=== PATIENT | female | born 1950 | race Caucasian/White ===

== ENCOUNTER → 2017-03-13 | Outpatient (REF) | payer MEDICARE, OTHER ==
[~2017-03-13] MED LIST: CELE10TA PO; DEPA500T2 PO; NORT10CA2 PO; PLEG15IN SC; TYSA1INJ IV; VALI5TAB PO; VITA200016 PO; VITA500046 PO
[2017-03-13 13:17] LABS: ALBUMIN 3.3 GM/DL (3.2-5.2); ALBUMIN/GLOBULIN RATIO 1.32 (1.00-1.93); ALKALINE PHOSPHATASE 55 U/L (45-117); ALT/SGPT 10 U/L (12-78); ANION GAP 12 MEQ/L (8-16); AST/SGOT 10 U/L (15-37); BILIRUBIN,TOTAL 0.3 MG/DL (0.2-1.0); BLOOD UREA NITROGEN 25 MG/DL (7-18); CARBON DIOXIDE LEVEL 26 MEQ/L (21-32); CHLORIDE LEVEL 106 MEQ/L (98-107); CREATININE FOR GFR 0.88 MG/DL (0.55-1.02); FREE T4 0.95 NG/DL (0.76-1.46); GLOMERULAR FILTRATION RATE > 60.0 (>45); GLUCOSE, FASTING 71 MG/DL (80-110); POTASSIUM SERUM 4.1 MEQ/L (3.5-5.1); SODIUM LEVEL 144 MEQ/L (136-145); TOTAL PROTEIN 5.8 GM/DL (6.4-8.2)
== END ==
LOC: M SFHCPLAZ 10:45
PROVIDERS: ATTEND Nurse Practitioner Family
DX: E55.9 Vitamin D deficiency, unspecified (principal); F32.9 Major depressive disorder, single episode, unspecified

== ENCOUNTER 2017-06-05 14:38 | Inpatient (IN) | payer MEDICARE, OTHER ==
[~2017-06-05] VITALS: Ht 162.6 cm; Wt 59.5 kg
[~2017-06-05 14:38] MED LIST changes: -PLEG15IN SC; -VALI5TAB PO; -VITA200016 PO; -VITA500046 PO
[2017-06-05] MEDS ORDERED: NS 1,000 ML IV ONE (15:00)
[2017-06-05] MEDS ORDERED: VITA200016 PO (15:03)
[2017-06-05] MEDS ORDERED: VALI5TAB PO (15:03)
[2017-06-05 17:04] LABS: ALBUMIN 3.7 GM/DL (3.2-5.2); ALBUMIN/GLOBULIN RATIO 1.37 (1.00-1.93); ALKALINE PHOSPHATASE 62 U/L (45-117); ALT/SGPT 27 U/L (12-78); ANION GAP 11 MEQ/L (8-16); AST/SGOT 30 U/L (7-37); BILIRUBIN,DIRECT 0.3 MG/DL (0.0-0.2); BILIRUBIN,TOTAL 0.6 MG/DL (0.2-1.0); BLOOD UREA NITROGEN 41 MG/DL (7-18); CALCIUM LEVEL 9.1 MG/DL (8.8-10.2); CARBON DIOXIDE LEVEL 27 MEQ/L (21-32); CHLORIDE LEVEL 103 MEQ/L (98-107); CREATININE FOR GFR 1.26 MG/DL (0.55-1.02); GLOMERULAR FILTRATION RATE 44.8 (>45); GLUCOSE, FASTING 73 MG/DL (80-110); POTASSIUM SERUM 3.4 MEQ/L (3.5-5.1); SODIUM LEVEL 141 MEQ/L (136-145); TOTAL PROTEIN 6.4 GM/DL (6.4-8.2)
[2017-06-05 17:37] LABS: MEAN CORPUSCULAR HEMOGLOBIN 32.8 pg (27.0-33.0); MEAN CORPUSCULAR HGB CONC 35.7 g/dl (32.0-36.5); MEAN CORPUSCULAR VOLUME 91.8 fl (80.0-96.0); RED CELL DISTRIBUTION WIDTH 13.2 % (11.5-14.5); WHITE BLOOD COUNT 5.4 10^3/uL (4.0-10.0)
[2017-06-05 17:38] LABS: PLATELET COUNT, AUTOMATED 78 10^3/uL (150-450)
[2017-06-05 17:39] LABS: IMMATURE PLATELET FRACTION % 8.4 % (0.0-9.6)
[2017-06-05 18:41] LABS: METHADONE URINE NEGATIVE (NEGATIVE)
--- NOTE | 2017-06-05 19:36 | ECGEPIP ---
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
[2017-06-05] MEDS: NS 1,000 ML IV SCH (21:58)
[2017-06-05] MEDS ORDERED: ONDANSETRON 4MG/2ML VIAL (J2405) IV PRN (22:00)
[2017-06-05] MEDS: GENTAMICIN 0.3% OPHTH SOL 5 ML BTL OU SCH (22:00)
[2017-06-05] MEDS ORDERED: VITA500046 PO (22:19)
[2017-06-05] MEDS ORDERED: PLEG15IN SC (22:21)
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
[2017-06-05] MEDS ORDERED: POTASSIUM CHLORIDE 10 MEQ SR TABLET PO ONE (23:30)
[2017-06-06 00:18] LABS: T UPTAKE 28 % (30-39); THYROXINE (T4) 10.1 UG/DL (4.5-12.0)
[2017-06-06 00:30] VITALS: BP 169/77
[2017-06-06] MEDS ORDERED: POTASSIUM CHLORIDE 10 MEQ SR TABLET As Ordered ONE (00:34)
[2017-06-06] MEDS: DIVALPROEX 500MG *ER* TAB PO SCH ×3 (01:22→22:16)
[2017-06-06] MEDS: GENTAMICIN 0.3% OPHTH SOL 5 ML BTL OU SCH ×6 (02:33→22:00)
[2017-06-06 06:00] VITALS: BP 132/63
[2017-06-06 06:58] LABS: MEAN CORPUSCULAR HEMOGLOBIN 32.6 pg (27.0-33.0); MEAN CORPUSCULAR HGB CONC 34.8 g/dl (32.0-36.5); MEAN CORPUSCULAR VOLUME 93.7 fl (80.0-96.0); RED CELL DISTRIBUTION WIDTH 13.5 % (11.5-14.5); WHITE BLOOD COUNT 3.8 10^3/uL (4.0-10.0)
[2017-06-06 07:02] LABS: PLATELET COUNT, AUTOMATED 66 10^3/uL (150-450)
[2017-06-06 07:04] LABS: CALCIUM LEVEL 8.3 MG/DL (8.8-10.2); GLOMERULAR FILTRATION RATE 58.5 (>45); POTASSIUM SERUM 3.9 MEQ/L (3.5-5.1)
--- NOTE | 2017-06-06 08:17 | REP ---
Portable chest: Single view. History: Weakness. Comparison study: January 04, 2015. Findings: EKG monitoring electrodes overlie the chest. Lungs are well inflated and clear. The pleural angles are sharp. Heart size is normal. Pulmonary vasculature is not increased. No significant bony abnormality. Impression: No active disease. Signed by Quinten Chakraborty MD 06/06/2017 08:08 A
[2017-06-06] MEDS: ENOXAPARIN 30 MG/0.3 ML SYR (J1650) SC SCH (09:00)
[2017-06-06] MEDS: NS 1,000 ML IV SCH ×2 (09:13→17:50)
[2017-06-06] MEDS: VITAMIN D 1,000 INTERNATIONAL UNITS TABLET PO SCH (09:14)
--- NOTE | 2017-06-06 21:13 | ECGEPIP ---
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 Electronically Signed On 06-06-2017 21:12:35 EDT by Larry Lazo
[2017-06-06 22:00] VITALS: BP 134/73
[2017-06-07] MEDS: GENTAMICIN 0.3% OPHTH SOL 5 ML BTL OU SCH ×6 (02:00→21:41)
--- NOTE | 2017-06-07 02:01 | IPNPDOC ---
Subjective Date Seen The patient was seen on 06/06/17. Subjective Chief Complaint/HPI The patient is a 67-year-old female admitted with a reason for visit of Misael ( Acute Kidney Injury),Hypokalemia. Events since last encounter Patient disoriented on exam, believes she is in her home. She thinks it is June 2018. She does state that she fell at home. She wishes to leave. General: Denies: Chills, Night Sweats Pulmonary: Denies: Dyspnea, Cough Cardiovascular: Denies: Chest Pain Gastrointestinal: Denies: Nausea, Vomiting, Diarrhea, Constipation Genitourinary: Denies: Dysuria Objective Physical Examination General Exam: Positive: Alert, Cooperative Chest Exam: Positive: Clear to auscultation Heart Exam: Positive: Rate Normal Psych Exam: Negative: Mental status NL, Oriented x 3 (x1) Assessment /Plan Problems (1) Weakness Status: Acute Problem Text: UA ordered. PT ordered. (2) Confusion Problem Text: metabolic encephalopathy vs dementia. UA ordered and pending. Renal function improved. If this does not clear, she may require placement. (3) Dehydration Status: Resolved Problem Text: Better with IVFs. (4) MISAEL (acute kidney injury) Status: Resolved (5) Hypokalemia Status: Resolved Plan/VTE VTE Prophylaxis Ordered?: Yes VS, I&O, 24H, Fishbone Vital Signs/I&O Vital Signs Date Time Temp Pulse Resp B/P (MAP) Pulse Ox O2 Delivery O2 Flow Rate FiO2 06/06/17 22:00 98.2 90 18 134/73 (93) 96 Room Air Laboratory Data 24H LABS Laboratory Tests 2 06/06/17 06:34: Nucleated Red Blood Cells % (auto) 0.0, Anion Gap 7L, Glomerular Filtration Rate 58.5, Blood Urea Nitrogen 32H, Creatinine 1.00, Sodium Level 142, Potassium Level 3.9, Chloride Level 108H, Carbon Dioxide Level 27, Calcium Level 8.3L CBC/BMP Laboratory Tests 06/06/17 06:34 Red Blood Count 3.19 L, Mean Corpuscular Volume 93.7, Mean Corpuscular Hemoglobin 32.6, Mean Corpuscular Hemoglobin Concent 34.8, Red Cell Distribution Width 13.5, Calcium Level 8.3 L OLIVIER BAKER DO Jun 07, 2017 02:01
[2017-06-07] MEDS: NS 1,000 ML IV SCH (03:10)
[2017-06-07 06:00] VITALS: BP 167/76
[2017-06-07 06:47] LABS: MEAN CORPUSCULAR HEMOGLOBIN 32.7 pg (27.0-33.0); MEAN CORPUSCULAR HGB CONC 34.3 g/dl (32.0-36.5); MEAN CORPUSCULAR VOLUME 95.3 fl (80.0-96.0); RED CELL DISTRIBUTION WIDTH 13.9 % (11.5-14.5); WHITE BLOOD COUNT 3.8 10^3/uL (4.0-10.0)
[2017-06-07 06:52] LABS: PLATELET COUNT, AUTOMATED 59 10^3/uL (150-450)
[2017-06-07 06:53] LABS: IMMATURE PLATELET FRACTION % 6.2 % (0.0-9.6)
[2017-06-07 07:09] LABS: ANION GAP 8 MEQ/L (8-16); BLOOD UREA NITROGEN 17 MG/DL (7-18); CALCIUM LEVEL 8.2 MG/DL (8.8-10.2); CARBON DIOXIDE LEVEL 27 MEQ/L (21-32); CHLORIDE LEVEL 110 MEQ/L (98-107); CREATININE FOR GFR 0.64 MG/DL (0.55-1.02); GLOMERULAR FILTRATION RATE > 60.0 (>45); GLUCOSE, FASTING 87 MG/DL (80-110); POTASSIUM SERUM 3.9 MEQ/L (3.5-5.1); SODIUM LEVEL 145 MEQ/L (136-145)
[2017-06-07] MEDS: VITAMIN D 1,000 INTERNATIONAL UNITS TABLET PO SCH (08:54)
[2017-06-07] MEDS: DIVALPROEX 500MG *ER* TAB PO SCH ×2 (08:54→21:41)
[2017-06-07] MEDS: ENOXAPARIN 30 MG/0.3 ML SYR (J1650) SC SCH (09:00)
[2017-06-07] MEDS ORDERED: PNEUMOCOCCAL VACCINE 0.5ML SYRINGE(90732) PNEUMOVAX 23 IM ONE (09:00)
[2017-06-07] MEDS ORDERED: INFLUENZA VIRUS VACCINE HIGH DOSE 0.5 ML SYRINGE (90662) IM ONE (09:00)
--- NOTE | 2017-06-07 09:49 | IPNPDOC ---
Subjective Date Seen The patient was seen on 06/07/17. Subjective Chief Complaint/HPI The patient is a 67-year-old female admitted with a reason for visit of Misael ( Acute Kidney Injury),Hypokalemia. Events since last encounter Today patient states that she is feeling much better, and admits she was "a little confused yesterday." She knows who she is, that today is June 07, 2017 , and that she is in [facility]. She has no complaints today. Patient was evaluated by PT yesterday and, per their note, she is unsteady with transfers and walks with an unsteady, shuffled gait. She is not safe to discharge home. Patient understands that her MS will most likely not improved, she states that she had planned to put her [place] [address] [place] for sale this Spring. She has thought about an assisted living facility, but she does enjoy her privacy. She currently also has a house in [facility], near where her brother lives. She cannot remember her brother's phone number to contact him, and states that she cannot remember her sister's number either. General: Reports: Normal Appetite, Denies: Chills, Night Sweats, Fatigue, Malaise Constitutional: Reports: Weakness Eyes: Denies: Pain, Vision change Pulmonary: Denies: Dyspnea, Cough Cardiovascular: Denies: Chest Pain, Palpitations Gastrointestinal: Denies: Nausea, Vomiting, Abdominal Pain Genitourinary: Denies: Dysuria Objective Physical Examination General Exam: Positive: Alert, Cooperative Chest Exam: Positive: Clear to auscultation Heart Exam: Positive: Rate Normal Abdomen Exam: Positive: Normal bowel sounds, Negative: Tenderness Extremity Exam: Positive: Normal pulses, Negative: Edema Psych Exam: Positive: Oriented x 3 Assessment /Plan Problems (1) Weakness Status: Acute Response to Treatment: Stable Problem Text: Per nursing, they have been thus far unable to obtain a urine sample for UA due to stool contamination and the patient being incontinent. PT evaluation: unsteady with transfers, unsteady and shuffled gait, not safe for D/C home due to impaired functional mobility. I have ordered a PFS consult to help with potential placement to either Subacute Rehab or Assisted Living. Looking through her EMR I was able to find her sister Terrie Umanzor is her HCP. (2) Confusion Status: Resolved Discussed With: Nurse Problem Text: Patient was alert and oriented x3 today. She was calm, cooperative, and demonstrated good insight into her chronic medical conditions. She has some slight dysphonia, but is able to articulate her thoughts in a clear manner. (3) Dehydration Status: Resolved Problem Text: Better with IVFs. (4) MISAEL (acute kidney injury) Status: Resolved (5) Hypokalemia Status: Resolved (6) Thrombocytopenia Status: Acute Problem Text: Patient's platelet count today was 59,000. I have held her Lovenox. Plan/VTE VTE Prophylaxis Ordered?: Yes VS, I&O, 24H, Fishbone Vital Signs/I&O Vital Signs Date Time Temp Pulse Resp B/P (MAP) Pulse Ox O2 Delivery O2 Flow Rate FiO2 06/07/17 06:00 97.8 85 18 167/76 (106) 97 Room Air Laboratory Data 24H LABS Laboratory Tests 2 06/07/17 06:21: Nucleated Red Blood Cells % (auto) 0.0, Immature Platelet Fraction 6.2, Anion Gap 8, Glomerular Filtration Rate > 60.0, Blood Urea Nitrogen 17, Creatinine 0.64, Sodium Level 145, Potassium Level 3.9, Chloride Level 110H, Carbon Dioxide Level 27, Calcium Level 8.2L CBC/BMP Laboratory Tests 06/07/17 06:21 Red Blood Count 3.18 L, Mean Corpuscular Volume 95.3, Mean Corpuscular Hemoglobin 32.7, Mean Corpuscular Hemoglobin Concent 34.3, Red Cell Distribution Width 13.9, Calcium Level 8.2 L GME ATTESTATION GME ATTESTATION My preceptor for this patient encounter was physically present in the building during the encounter and was fully available. As needed, all aspects of the patient interview, examination, medical decision making process, and medical care plan development were reviewed and approved by the preceptor. Preceptor is aware and concurs with the plan as stated in the body of this note and will attest to such by his/her cosignature. GIRISH PATTON DO Jun 07, 2017 09:49
[2017-06-07 14:00] VITALS: BP 142/90
[2017-06-07 22:00] VITALS: BP 168/79
[2017-06-08] MEDS: GENTAMICIN 0.3% OPHTH SOL 5 ML BTL OU SCH ×6 (02:23→19:56)
[2017-06-08 06:00] VITALS: BP 126/79
[2017-06-08 06:40] LABS: MEAN CORPUSCULAR HEMOGLOBIN 31.9 pg (27.0-33.0); MEAN CORPUSCULAR HGB CONC 33.6 g/dl (32.0-36.5); MEAN CORPUSCULAR VOLUME 94.9 fl (80.0-96.0); RED CELL DISTRIBUTION WIDTH 13.8 % (11.5-14.5)
[2017-06-08 06:54] LABS: ANION GAP 6 MEQ/L (8-16); BLOOD UREA NITROGEN 11 MG/DL (7-18); CALCIUM LEVEL 8.5 MG/DL (8.8-10.2); CARBON DIOXIDE LEVEL 29 MEQ/L (21-32); CHLORIDE LEVEL 107 MEQ/L (98-107); CREATININE FOR GFR 0.68 MG/DL (0.55-1.02); GLOMERULAR FILTRATION RATE > 60.0 (>45); GLUCOSE, FASTING 85 MG/DL (80-110); PLATELET COUNT, AUTOMATED 69 10^3/uL (150-450); POTASSIUM SERUM 3.9 MEQ/L (3.5-5.1); SODIUM LEVEL 142 MEQ/L (136-145)
[2017-06-08 06:56] LABS: IMMATURE PLATELET FRACTION % 4.8 % (0.0-9.6)
[2017-06-08] MEDS: ENOXAPARIN 30 MG/0.3 ML SYR (J1650) SC SCH (09:00)
[2017-06-08 09:18] VITALS: BP 131/68
[2017-06-08] MEDS: DIVALPROEX 500MG *ER* TAB PO SCH ×2 (09:40→19:56)
[2017-06-08] MEDS: VITAMIN D 1,000 INTERNATIONAL UNITS TABLET PO SCH (09:42)
[2017-06-08 14:17] VITALS: BP 136/68
--- NOTE | 2017-06-08 14:53 | IPN ---
DATE: 06/08/2017 Joan is seen on [address]. It is my understanding that there were discussions taking place about patient being unsafe to go home and whether she would need subacute rehabilitation or assisted living. I do not see where this has been addressed by patient and family services (PFS) yet. Clinically, the patient is doing well. She might have a urinary tract infection (UTI). She had a urinalysis today that showed some leukocytosis. She did have squamous epithelial cells so it could be contaminated. Although, we are going to cover with antibiotic pending culture results. PHYSICAL EXAMINATION: VITAL SIGNS: Stable. Afebrile. LUNGS: Clear. HEART: Regular rate and rhythm. ABDOMEN: Soft, nontender. No costovertebral angle (CVA) tenderness. LABORATORIES: Creatinine remains normal, 0.68. White count is normal. Hemoglobin 10.7. IMPRESSION: 1. Generalized weakness. Waiting for input from PFS. Will get a home safety evaluation. Patient seemed unaware of discussions about possible rehabilitation. 2. Metabolic encephalopathy versus dementia related to her multiple sclerosis. It could be from UTI. Starting on antibiotic. 3. Suspected urinary tract infection. Antibiotic begun today. Will begin oral cephalexin. 4. Dehydration. Resolved with intravenous (IV) fluids. 5. Acute kidney injury. Resolved with IV fluids. 6. Anemia. Dilutional from her hydration.
[2017-06-08] MEDS: CEPHALEXIN 500 MG CAP PO SCH ×2 (15:00→19:56)
[2017-06-08 22:00] VITALS: BP 135/74
[2017-06-09] MEDS: GENTAMICIN 0.3% OPHTH SOL 5 ML BTL OU SCH ×6 (02:53→20:40)
[2017-06-09 06:00] VITALS: BP 158/78
[2017-06-09 06:44] LABS: MEAN CORPUSCULAR HEMOGLOBIN 32.6 pg (27.0-33.0); MEAN CORPUSCULAR HGB CONC 34.4 g/dl (32.0-36.5); MEAN CORPUSCULAR VOLUME 94.7 fl (80.0-96.0); RED CELL DISTRIBUTION WIDTH 13.6 % (11.5-14.5); WHITE BLOOD COUNT 3.2 10^3/uL (4.0-10.0)
[2017-06-09 06:45] LABS: PLATELET COUNT, AUTOMATED 72 10^3/uL (150-450)
[2017-06-09 06:57] LABS: ANION GAP 7 MEQ/L (8-16); BLOOD UREA NITROGEN 12 MG/DL (7-18); CALCIUM LEVEL 8.5 MG/DL (8.8-10.2); CARBON DIOXIDE LEVEL 32 MEQ/L (21-32); CHLORIDE LEVEL 105 MEQ/L (98-107); CREATININE FOR GFR 0.69 MG/DL (0.55-1.02); GLOMERULAR FILTRATION RATE > 60.0 (>45); GLUCOSE, FASTING 80 MG/DL (80-110); SODIUM LEVEL 144 MEQ/L (136-145)
[2017-06-09] MEDS: DIVALPROEX 500MG *ER* TAB PO SCH ×2 (08:11→20:40)
[2017-06-09] MEDS: CEPHALEXIN 500 MG CAP PO SCH ×2 (08:11→20:40)
[2017-06-09] MEDS: VITAMIN D 1,000 INTERNATIONAL UNITS TABLET PO SCH (08:11)
--- NOTE | 2017-06-09 10:52 | IPN ---
DATE: 06/09/2017 Joan is seen on [address]. She is participating in physical therapy and walked 60 feet yesterday. Still is not felt to be safe for home. I started her on some cephalexin yesterday for urinary tract infection (UTI). She also complained of . PHYSICAL EXAMINATION: Vital signs: Stable. Afebrile. Lungs: Clear. Heart: Regular rate and rhythm. Abdomen: Soft, nontender, and no peripheral edema. LABORATORIES: CBC unremarkable. Hemoglobin stable. Electrolytes unremarkable. Urine culture is still pending. PLAN: Will continue on cephalexin for the UTI. Her acute kidney injury is resolved. Dehydration has resolved. Her metabolic encephalopathy has resolved. Hemoglobin is stable. We are waiting for her home safety evaluation. She could go home at that point.
[2017-06-09 14:00] VITALS: BP 160/90
[2017-06-09] MEDS: ACETAMINOPHEN TAB 650MG DOSE (2X325MG) PO PRN (14:59)
[2017-06-09 22:00] VITALS: BP 171/81
[2017-06-10] MEDS: GENTAMICIN 0.3% OPHTH SOL 5 ML BTL OU SCH ×6 (03:40→22:34)
[2017-06-10] MEDS: ACETAMINOPHEN TAB 650MG DOSE (2X325MG) PO PRN (04:23)
[2017-06-10 06:00] VITALS: BP 178/100
[2017-06-10 06:26] LABS: MEAN CORPUSCULAR HEMOGLOBIN 33.5 pg (27.0-33.0); MEAN CORPUSCULAR HGB CONC 35.2 g/dl (32.0-36.5); MEAN CORPUSCULAR VOLUME 95.4 fl (80.0-96.0); RED CELL DISTRIBUTION WIDTH 13.9 % (11.5-14.5); WHITE BLOOD COUNT 4.6 10^3/uL (4.0-10.0)
[2017-06-10 06:27] LABS: IMMATURE PLATELET FRACTION % 4.9 % (0.0-9.6); PLATELET COUNT, AUTOMATED 82 10^3/uL (150-450)
[2017-06-10 06:41] LABS: ANION GAP 7 MEQ/L (8-16); BLOOD UREA NITROGEN 17 MG/DL (7-18); CALCIUM LEVEL 8.7 MG/DL (8.8-10.2); CARBON DIOXIDE LEVEL 32 MEQ/L (21-32); CHLORIDE LEVEL 104 MEQ/L (98-107); CREATININE FOR GFR 0.75 MG/DL (0.55-1.02); GLOMERULAR FILTRATION RATE > 60.0 (>45); GLUCOSE, FASTING 96 MG/DL (80-110); POTASSIUM SERUM 4.4 MEQ/L (3.5-5.1); SODIUM LEVEL 143 MEQ/L (136-145)
[2017-06-10] MEDS: DIVALPROEX 500MG *ER* TAB PO SCH ×2 (09:09→20:09)
[2017-06-10] MEDS: CEPHALEXIN 500 MG CAP PO SCH ×2 (09:10→20:09)
[2017-06-10] MEDS: VITAMIN D 1,000 INTERNATIONAL UNITS TABLET PO SCH (09:10)
--- NOTE | 2017-06-10 10:03 | DSES ---
DATE OF ADMISSION: 06/05/2017 DATE OF DISCHARGE: FIRST DIAGNOSIS: Metabolic encephalopathy secondary to urinary tract infections. SECONDARY DIAGNOSES: 1. Urinary tract infection secondary to Escherichia (E) coli. 2. Multiple sclerosis with exacerbation secondary to urinary tract infection. 3. Acute kidney injury secondary to dehydration. 4. Anemia dilutional from intravenous (IV) fluids. 5. Thrombocytopenia probably secondary to Plegridy injections. HISTORY: Joan Jameson was admitted on 06/05/2017 for generalized weakness. Details of history and physical, please see admission. HOSPITAL COURSE: Patient was rehydrated. Acute kidney injury resolved. She was found to have E coli UTI. She was started on oral Keflex. Her multiple sclerosis (MS) flared probably from the infection. She was felt to require placement and she was put on senior living facility (SNF) level or care today. Labs today, white count 4.6, hemoglobin 10.9, platelets 82,000. Sodium 143, potassium 4.4, BUN 17, creatinine 0.7, glucose 96. DISPOSITION: Patient is on senior living facility (SNF) level of care. Current medications are: - Keflex 500 mg twice a day to complete a 14 day course - She is on immunosuppressants from the Plegridy injections. - vitamin D 5000 units daily - Garamycin opthalmic drops two drops every 4 hours each eye - Depakote ER 500 mg twice a day - Tylenol as needed
[2017-06-10] MEDS: ENOXAPARIN 30 MG/0.3 ML SYR (J1650) SC SCH (13:00)
[2017-06-11] MEDS: GENTAMICIN 0.3% OPHTH SOL 5 ML BTL OU SCH ×6 (02:24→21:05)
[2017-06-11 06:00] VITALS: BP 145/74
[2017-06-11] MEDS: VITAMIN D 1,000 INTERNATIONAL UNITS TABLET PO SCH (09:11)
[2017-06-11] MEDS: CEPHALEXIN 500 MG CAP PO SCH ×2 (09:11→20:38)
[2017-06-11] MEDS: DIVALPROEX 500MG *ER* TAB PO SCH ×2 (09:12→20:38)
[2017-06-11 22:00] VITALS: BP 133/65
[2017-06-12] MEDS: GENTAMICIN 0.3% OPHTH SOL 5 ML BTL OU SCH ×5 (01:07→20:21)
[2017-06-12 06:00] VITALS: BP 128/65
[2017-06-12] MEDS: VITAMIN D 1,000 INTERNATIONAL UNITS TABLET PO SCH (08:51)
[2017-06-12] MEDS: DIVALPROEX 500MG *ER* TAB PO SCH ×2 (08:52→20:21)
[2017-06-12] MEDS: CEPHALEXIN 500 MG CAP PO SCH ×2 (08:52→20:21)
[2017-06-12 22:00] VITALS: BP 126/66
[2017-06-13 06:00] VITALS: BP 117/67
[2017-06-13] MEDS: DIVALPROEX 500MG *ER* TAB PO SCH ×2 (09:00→20:27)
[2017-06-13] MEDS: CEPHALEXIN 500 MG CAP PO SCH ×2 (09:00→20:27)
[2017-06-13] MEDS: VITAMIN D 1,000 INTERNATIONAL UNITS TABLET PO SCH (09:00)
[2017-06-13 14:00] VITALS: BP 140/74
[2017-06-13 22:00] VITALS: BP 124/71
[2017-06-14 06:00] VITALS: BP 154/91
[2017-06-14] MEDS: CEPHALEXIN 500 MG CAP PO SCH ×2 (11:59→20:23)
[2017-06-14] MEDS: DIVALPROEX 500MG *ER* TAB PO SCH ×2 (12:00→20:23)
[2017-06-14] MEDS: VITAMIN D 1,000 INTERNATIONAL UNITS TABLET PO SCH (12:00)
[2017-06-14 22:00] VITALS: BP 153/88
[2017-06-15 06:00] VITALS: BP 137/75
[2017-06-15 08:00] VITALS: BP 132/60
[2017-06-15] MEDS: VITAMIN D 1,000 INTERNATIONAL UNITS TABLET PO SCH (10:33)
[2017-06-15] MEDS: DIVALPROEX 500MG *ER* TAB PO SCH ×2 (10:33→20:54)
[2017-06-15] MEDS: CEPHALEXIN 500 MG CAP PO SCH ×2 (10:34→20:54)
[2017-06-15 14:00] VITALS: BP 131/86
--- NOTE | 2017-06-15 15:00 | IPNPDOC ---
Text Note Date of Service The patient was seen on 06/15/17. NOTE Objective: This is a 67-year-old female seen today at bedside. Patient was comfortable. Has no complaints. She continues to work with physical therapy. She is not safe for discharge at this time. She has difficulties ambulating stairs. Today she denies chest pain, difficulties breathing, abdominal pain, diarrhea or constipation, nausea/vomiting, fevers. Patient has no urinary complaints today, no dysuria, hematuria. Subjective: Vital signs: Please see below Gen.: Lying on the bed, in no acute distress. HEENT: Head normocephalic, atraumatic. EOMI. Cardiovascular: Regular rate and rhythm, no murmurs. Respiratory: Clear to auscultation bilaterally, no wheezing. Abdomen: Soft, nontender, nondistended, normoactive bowel sounds throughout. Extremities: No edema in the lower extremities. Neuro: No sensory deficits Psych: Normal mood Assessment/plan: This is a 67-year-old female with metabolic encephalopathy secondary to urinary tract infection. Patient currently on [facility] facility level of care. She was rehydrated and her kidney injury resolved. She is currently taking Keflex 500 mg twice a day day 03/23. No complications from medications. Patient will continue to work with physical therapy for strengthening. VS,Fishbone, I+O VS, Fishbone, I+O Vital Signs Date Time Temp Pulse Resp B/P (MAP) Pulse Ox O2 Delivery O2 Flow Rate FiO2 06/15/17 14:00 99.3 95 18 131/86 (101) 95 Room Air I&O- Last 24 Hours up to 6 AM 06/16/17 06:00 Intake Total 240 ml Balance 240 ml GME ATTESTATION GME ATTESTATION My preceptor for this patient encounter was physically present in the building during the encounter and was fully available. As needed, all aspects of the patient interview, examination, medical decision making process, and medical care plan development were reviewed and approved by the preceptor. Preceptor is aware and concurs with the plan as stated in the body of this note and will attest to such by his/her cosignature. SOWMYA TIRADO DO Jun 15, 2017 15:00
[2017-06-15 22:00] VITALS: BP 132/86
[2017-06-16 06:00] VITALS: BP 143/62
[2017-06-16 07:02] LABS: MEAN CORPUSCULAR HEMOGLOBIN 33.7 pg (27.0-33.0); MEAN CORPUSCULAR HGB CONC 34.8 g/dl (32.0-36.5); MEAN CORPUSCULAR VOLUME 96.9 fl (80.0-96.0); PLATELET COUNT, AUTOMATED 146 10^3/uL (150-450); RED CELL DISTRIBUTION WIDTH 14.6 % (11.5-14.5); WHITE BLOOD COUNT 7.7 10^3/uL (4.0-10.0)
[2017-06-16 07:13] LABS: ALBUMIN 2.4 GM/DL (3.2-5.2); ALBUMIN/GLOBULIN RATIO 0.71 (1.00-1.93); ALKALINE PHOSPHATASE 47 U/L (45-117); ALT/SGPT 10 U/L (12-78); ANION GAP 5 MEQ/L (8-16); AST/SGOT 10 U/L (7-37); BILIRUBIN,TOTAL 0.4 MG/DL (0.2-1.0); BLOOD UREA NITROGEN 19 MG/DL (7-18); CALCIUM LEVEL 8.5 MG/DL (8.8-10.2); CARBON DIOXIDE LEVEL 31 MEQ/L (21-32); CHLORIDE LEVEL 104 MEQ/L (98-107); GLOMERULAR FILTRATION RATE > 60.0 (>45); GLUCOSE, FASTING 81 MG/DL (80-110); POTASSIUM SERUM 3.7 MEQ/L (3.5-5.1); SODIUM LEVEL 140 MEQ/L (136-145); TOTAL PROTEIN 5.8 GM/DL (6.4-8.2)
[2017-06-16] MEDS: DIVALPROEX 500MG *ER* TAB PO SCH ×2 (08:54→20:12)
[2017-06-16] MEDS: CEPHALEXIN 500 MG CAP PO SCH ×2 (08:54→20:12)
[2017-06-16] MEDS: VITAMIN D 1,000 INTERNATIONAL UNITS TABLET PO SCH (08:54)
[2017-06-16 14:00] VITALS: BP 132/90
[2017-06-16] MEDS: ACETAMINOPHEN TAB 650MG DOSE (2X325MG) PO PRN (15:19)
[2017-06-16 22:00] VITALS: BP 125/66
[2017-06-17 06:00] VITALS: BP 162/71
[2017-06-17] MEDS: DIVALPROEX 500MG *ER* TAB PO SCH ×2 (09:43→20:44)
[2017-06-17] MEDS: CEPHALEXIN 500 MG CAP PO SCH ×2 (09:43→20:44)
[2017-06-17] MEDS: VITAMIN D 1,000 INTERNATIONAL UNITS TABLET PO SCH (09:44)
[2017-06-17 14:00] VITALS: BP 145/70
[2017-06-17 16:53] VITALS: BP_SYST 132; BP_SYST 136; BP_SYST 151; BP_DIAS 76; BP_DIAS 79
[2017-06-17 19:10] LABS: MICROSCOPIC INDICATED? MAN YES (NO)
[2017-06-17 19:59] LABS: BACTERIA, URINE LARGE AMOUNT; RBC, URINE TNTC /hpf (0-3); SQUAMOUS EPITHELIAL CELL URINE MOD AMOUNT /hpf (SMALL AMT); TRANSITIONAL EPI CELLS, URINE LARGE AMOUNT /hpf; WBC, URINE TNTC /hpf (0-3)
[2017-06-17 20:00] LABS: HYALINE CAST, URINE NONE SEEN /lpf (0-1); MICROSCOPIC EXAM PERFORMED
--- NOTE | 2017-06-17 20:27 | MHIPNPDOC ---
[facility] Progress Note Progress Note DATE OF SERVICE: 06/17/17 HISTORY: This marketing underwriter was called to evaluate 67-year-old female with history of having been admitted to the medical floor on 06/05/2017 for: FIRST DIAGNOSIS: Metabolic encephalopathy secondary to urinary tract infections. SECONDARY DIAGNOSES: 1. Urinary tract infection secondary to Escherichia (E) coli. 2. Multiple sclerosis with exacerbation secondary to urinary tract infection. 3. Acute kidney injury secondary to dehydration. 4. Anemia dilutional from intravenous (IV) fluids. 5. Thrombocytopenia probably secondary to Plegridy injections. She has remained at the hospital because her providers have considered it is unsafe for her to be discharged home. According to her providers, she is not attending to her ADLs and she is quite frail to go home alone. Patient has been refusing to be placed at a assisted, she wants to go home, but she doesn't seem capable of doing that. The patient reported that her primary care physician has told her she has a moderate depression and she has never taken antidepressants. VITAL SIGNS: See below. NEW TEST RESULTS: See below CURRENT MEDICATIONS: See below. MENTAL STATUS EXAMINATION: Patient is a 67-year old female, who is alert, mildly cooperative, guarded and suspicious, dressed in hospital clothes with fair eye contact. Speech: Is low volume, normal in rate and tone. Language skills are fair Thought processes including: She has some deficits, especially related to memory , recent and remote Thought content: Focused on being an independent woman, denying her fragility and the need for help. Abstract reasoning, and computation: Abstract reasoning is fair computation is limited Description of associations: Good Description of abnormal or psychotic thoughts: She denies auditory and visual hallucinations, denies thought delusions and denies suicidal and homicidal ideation Judgment: Poor Insight: Poor Orientation: She knows the month, the year and she notes Thursday but she doesn 't know the exact date. Recent and remote memory: Has problems recalling "orange, ball and [place]", after 3 minutes she was only able to recall [place]. She couldn't recall neither one of those 3 words after 10 minutes. She couldn't remember Pres. Obalexa 's name or his 's name. Attention span and concentration: Easily distractible Language: Limited Fund of knowledge: Limited Mood: Very anxious Affect: Anxious. DIAGNOSES: 1. Major depressive disorder, recurrent, moderate secondary to another medical condition ASSESSMENT: Patient has memory problems, she is very anxious, she shakes quite frequently, her judgment and insight are very poor. She notices her deficits but tries to conceal and minimize them because she wants to go back home and not to a assisted. This marketing underwriter believes she has no capacity to make decisions at this time because she has memory impairments, because her illness is severe and she still has no insight about her deficits. She is in denial of how advanced her illness is. While this marketing underwriter was in her room she kept having a conversation over the phone and she kept telling the person she was talking to , "I don't remember". The patient has seen this marketing underwriter walked into her room and this marketing underwriter have told her I needed to evaluate her but she kept talking on the phone and when I spoke to her and again she ignored me. When I talked to her and called her by her name she got confused and very anxious and she kept looking up, as if my voice was coming from above when in fact I was sitting in front of her. The patient is not safe to go home, I don't believe she has the capacity to take care of herself or to make rational decisions about her health at this time. TIME SPENT:45 minutes. Vital Signs Vital Signs Date Time Temp Pulse Resp B/P (MAP) Pulse Ox O2 Delivery O2 Flow Rate FiO2 06/17/17 16:53 99 136/79 (98) 101 132/79 (96) 115 151/76 (101) 06/17/17 14:00 98.8 14 98 Room Air Laboratory Data 24H Labs Laboratory Tests 2 06/17/17 18:46: Bedside Urine Color (LAB) DK YELLOW, Bedside Urine Appearance (LAB) TURBIDH, Bedside Urine pH (LAB) 5.5, Bedside Urine Specific [place] (LAB 1.020, Bedside Urine Protein (LAB) 3+H, Bedside Urine Glucose (UA) NEGATIVE, Bedside Urine Ketones (LAB) NEGATIVE, Bedside Urine Blood POSITIVEH, Bedside Urine Nitrite ( LAB) POSITIVEH, Bedside Urine Bilirubin (LAB) NEGATIVE, Bedside Urine Urobilinogen (LAB) NORMAL, Bedside Urine Leukocyte Esterase (L POSITIVEH, Urine WBC TNTCH, Urine RBC TNTCH, Urine Squamous Epithelial Cells MOD AMOUNTH, Urine Transitional Epithelial Cells LARGE AMOUNT, Urine Renal Epithelial Cells MOD AMOUNTH, Urine Bacteria LARGE AMOUNTH, Urine Hyaline Casts NONE SEEN, Urine Mucus SMALL AMOUNTH, Urine Sediment Examination PERFORMED Current Medications Current Medications Acetaminophen (Tylenol Tab) 650 mg Q4HP PRN PO MILD PAIN OR FEVER Last administered on 06/16/17 15:19; Start 06/05/17 at 22:00; Stop 07/05/17 at 21: 59 Cephalexin Monohydrate (Keflex) 500 mg BID PO Last administered on 06/17/17 09 :43; Start 06/08/17 at 09:00; Stop 06/21/17 at 08:59 Divalproex Sodium (Depakote Er) 500 mg BID PO Last administered on 06/17/17 09 :43; Start 06/05/17 at 21:00; Stop 07/05/17 at 20:59 Enoxaparin Sodium (Lovenox) 30 mg DAILY SC Last administered on 06/08/17 09: 00; Start 06/06/17 at 09:00; Stop 06/10/17 at 13:59; Status DC Gentamicin Sulfate (Garamycin 0.3% Ophth Drops) 2 drop Q4H OU Last administered on 06/12/17 20:21; Start 06/05/17 at 22:00; Stop 06/12/17 at 21: 59; Status DC Home Med (Med Rec Complete!) ASDIRECTED XX ; Start 06/05/17 at 22:30; Stop at 22:30; Status DC Ondansetron HCl (ZOFRAN INJection) 4 mg Q6HP PRN IV NAUSEA OR VOMITING; Start 06/05/17 at 22:00; Stop 07/05/17 at 21:59 Sodium Chloride 1,000 ml @ 100 mls/hr Q10H IV Last administered on 06/07/17 03:10; Start 06/05/17 at 21:58; Stop 06/07/17 at 12:45; Status DC Vitamin D (Vitamin D) 5,000 units DAILY PO Last administered on 06/17/17 09:44 ; Start 06/06/17 at 09:00; Stop 07/06/17 at 08:59 Allergies Coded Allergies: No Known Drug Allergy (Unverified Allergy, Unknown, 11/15/12) STEPHAN AUSTIN MD Jun 17, 2017 20:27
[2017-06-17 22:00] VITALS: BP 123/73
[2017-06-18 06:00] VITALS: BP_SYST 119; BP_SYST 129; BP_DIAS 70; BP_DIAS 74
[2017-06-18] MEDS: VITAMIN D 1,000 INTERNATIONAL UNITS TABLET PO SCH (08:20)
[2017-06-18] MEDS: DIVALPROEX 500MG *ER* TAB PO SCH ×2 (08:20→21:21)
[2017-06-18] MEDS: CEPHALEXIN 500 MG CAP PO SCH ×2 (08:20→21:21)
--- NOTE | 2017-06-19 05:51 | IPNPDOC ---
Text Note Date of Service The patient was seen on 06/18/17. NOTE Objective: Patient was seen and evaluated yesterday by psychiatry. They stated that she does not have the capacity to make her own medical decisions. They also state that she is not safe to be discharged home. Patient is doing well today. Does not have any medical complaints. She states that she wants to be discharged to a rehab facility near her brother in [place]. She denies dysuria today, no fevers, no abd pain. Subjective: Vital signs: Please see below Gen.: Lying on the bed, in no acute distress. HEENT: Head normocephalic, atraumatic. EOMI. Cardiovascular: Regular rate and rhythm, no murmurs. Respiratory: Clear to auscultation bilaterally, no wheezing. Abdomen: Soft, nontender, nondistended, normoactive bowel sounds throughout. Extremities: No edema in the lower extremities. Neuro: No sensory deficits Psych: Normal mood Assessment/plan: This is a 67-year-old female with metabolic encephalopathy secondary to urinary tract infection. Patient currently on assisted facility level of care. She was rehydrated and her kidney injury resolved. She is currently taking Keflex 500 mg twice a day 06/23. No complications from medications. Patient will continue to work with physical therapy for strengthening, is unsafe for discharge at this time. Planning discharge to rehab. VS,Fishbone, I+O VS, Fishbone, I+O Vital Signs Date Time Temp Pulse Resp B/P (MAP) Pulse Ox O2 Delivery O2 Flow Rate FiO2 06/18/17 06:00 97.8 83 14 119/70 (86) 100 Room Air GME ATTESTATION GME ATTESTATION My preceptor for this patient encounter was physically present in the building during the encounter and was fully available. As needed, all aspects of the patient interview, examination, medical decision making process, and medical care plan development were reviewed and approved by the preceptor. Preceptor is aware and concurs with the plan as stated in the body of this note and will attest to such by his/her cosignature. SOWMYA TIRADO DO Jun 19, 2017 05:51
[2017-06-19 06:00] VITALS: BP 140/81
[2017-06-19] MEDS: VITAMIN D 1,000 INTERNATIONAL UNITS TABLET PO SCH (08:34)
[2017-06-19] MEDS: CEPHALEXIN 500 MG CAP PO SCH ×2 (08:34→20:45)
[2017-06-19] MEDS: DIVALPROEX 500MG *ER* TAB PO SCH ×2 (08:34→20:45)
[2017-06-20 05:00] VITALS: BP 134/63
[2017-06-20] MEDS: DIVALPROEX 500MG *ER* TAB PO SCH ×2 (08:33→20:53)
[2017-06-20] MEDS: CEPHALEXIN 500 MG CAP PO SCH ×2 (08:33→20:53)
[2017-06-20] MEDS: VITAMIN D 1,000 INTERNATIONAL UNITS TABLET PO SCH (08:34)
[2017-06-21 06:00] VITALS: BP 123/68
[2017-06-21] MEDS: VITAMIN D 1,000 INTERNATIONAL UNITS TABLET PO SCH (08:36)
[2017-06-21] MEDS: DIVALPROEX 500MG *ER* TAB PO SCH ×2 (08:37→20:09)
[2017-06-21] MEDS: CEPHALEXIN 500 MG CAP PO SCH ×2 (08:37→20:09)
[2017-06-22 06:00] VITALS: BP 134/63
[2017-06-22] MEDS: DIVALPROEX 500MG *ER* TAB PO SCH ×2 (08:19→19:38)
[2017-06-22] MEDS: VITAMIN D 1,000 INTERNATIONAL UNITS TABLET PO SCH (08:19)
[2017-06-22] MEDS: CEPHALEXIN 500 MG CAP PO SCH ×2 (08:19→19:37)
[2017-06-23 06:00] VITALS: BP 118/68
[2017-06-23] MEDS: DIVALPROEX 500MG *ER* TAB PO SCH ×2 (08:01→19:49)
[2017-06-23] MEDS: VITAMIN D 1,000 INTERNATIONAL UNITS TABLET PO SCH (08:01)
[2017-06-23] MEDS: CEPHALEXIN 500 MG CAP PO SCH ×2 (08:02→19:50)
[2017-06-23 14:00] VITALS: BP 123/56
[2017-06-24 04:00] VITALS: BP 140/72
[2017-06-24] MEDS: CEPHALEXIN 500 MG CAP PO SCH ×2 (07:48→20:25)
[2017-06-24] MEDS: DIVALPROEX 500MG *ER* TAB PO SCH ×2 (07:48→20:25)
[2017-06-24] MEDS: VITAMIN D 1,000 INTERNATIONAL UNITS TABLET PO SCH (07:48)
[2017-06-25 06:00] VITALS: BP 126/56
[2017-06-25] MEDS: DIVALPROEX 500MG *ER* TAB PO SCH ×2 (08:29→20:32)
[2017-06-25] MEDS: VITAMIN D 1,000 INTERNATIONAL UNITS TABLET PO SCH (08:29)
[2017-06-25] MEDS: CEPHALEXIN 500 MG CAP PO SCH (08:29)
--- NOTE | 2017-06-25 09:15 | IPNPDOC ---
Subjective Date Seen The patient was seen on 06/25/17. Subjective Chief Complaint/HPI The patient is a 67-year-old female admitted with a reason for visit of Misael ( Acute Kidney Injury),Hypokalemia. Events since last encounter Pt without new concerns. General: Denies: Fatigue Constitutional: Denies: Chills, Fever Pulmonary: Denies: Dyspnea, Cough Cardiovascular: Denies: Chest Pain, Palpitations Gastrointestinal: Denies: Nausea, Vomiting, Diarrhea Objective Physical Examination General Exam: Positive: Alert, Cooperative Chest Exam: Positive: Clear to auscultation Heart Exam: Positive: Rate Normal Abdomen Exam: Positive: Normal bowel sounds, Negative: Tenderness Extremity Exam: Positive: Normal pulses, Negative: Edema Psych Exam: Positive: Oriented x 3 Assessment /Plan Problems (1) Weakness Status: Acute Response to Treatment: Stable Problem Text: 06/25 - Stable, pt hoping for STR, vs AL, she cont to work with PT. 06/07 Per nursing, they have been thus far unable to obtain a urine sample for UA due to stool contamination and the patient being incontinent. PT evaluation: unsteady with transfers, unsteady and shuffled gait, not safe for D/C home due to impaired functional mobility. I have ordered a PFS consult to help with potential placement to either Subacute Rehab or Assisted Living. Looking through her EMR I was able to find her sister Terrie Umanzor is her HCP. (2) Confusion Status: Resolved Discussed With: Nurse Problem Text: 06/25 - Deemed incomp to make own decisions, has HCP and POA now in place, family cooperative and supportive, PFS working on placement. 06/07 Patient was alert and oriented x3 today. She was calm, cooperative, and demonstrated good insight into her chronic medical conditions. She has some slight dysphonia, but is able to articulate her thoughts in a clear manner. (3) Dehydration Status: Resolved Problem Text: Better with IVFs. (4) MISAEL (acute kidney injury) Status: Resolved (5) Hypokalemia Status: Resolved (6) Thrombocytopenia Status: Acute Problem Text: Patient's platelet count today was 59,000. I have held her Lovenox. Plan/VTE VTE Prophylaxis Ordered?: Yes VS, I&O, 24H, Fishbone Vital Signs/I&O Vital Signs Date Time Temp Pulse Resp B/P (MAP) Pulse Ox O2 Delivery O2 Flow Rate FiO2 06/25/17 06:00 99.2 85 18 126/56 (79) 98 Room Air I&O- Last 24 Hours up to 6 AM 06/26/17 05:59 Intake Total 240 ml Balance 240 ml JEFF KIMBALL PA-C Jun 25, 2017 09:15
[2017-06-26 06:00] VITALS: BP 116/56
[2017-06-26] MEDS: DIVALPROEX 500MG *ER* TAB PO SCH ×2 (09:07→20:37)
[2017-06-26] MEDS: VITAMIN D 1,000 INTERNATIONAL UNITS TABLET PO SCH (09:08)
[2017-06-26] MEDS ORDERED: TUBERCULIN PPD 5 UNITS/0.1 ML ID ONE (15:00)
[2017-06-27 06:00] VITALS: BP 117/62
[2017-06-27 06:10] LABS: MEAN CORPUSCULAR HEMOGLOBIN 32.7 pg (27.0-33.0); MEAN CORPUSCULAR HGB CONC 32.7 g/dl (32.0-36.5); PLATELET COUNT, AUTOMATED 214 10^3/uL (150-450); RED CELL DISTRIBUTION WIDTH 14.2 % (11.5-14.5); WHITE BLOOD COUNT 7.5 10^3/uL (4.0-10.0)
[2017-06-27 06:37] LABS: ANION GAP 7 MEQ/L (8-16); BLOOD UREA NITROGEN 27 MG/DL (7-18); CALCIUM LEVEL 8.7 MG/DL (8.8-10.2); CARBON DIOXIDE LEVEL 30 MEQ/L (21-32); CHLORIDE LEVEL 101 MEQ/L (98-107); CREATININE FOR GFR 0.69 MG/DL (0.55-1.02); GLOMERULAR FILTRATION RATE > 60.0 (>45); GLUCOSE, FASTING 89 MG/DL (80-110); POTASSIUM SERUM 4.1 MEQ/L (3.5-5.1); SODIUM LEVEL 138 MEQ/L (136-145)
[2017-06-27] MEDS: VITAMIN D 1,000 INTERNATIONAL UNITS TABLET PO SCH (08:20)
[2017-06-27] MEDS: DIVALPROEX 500MG *ER* TAB PO SCH ×2 (08:20→20:32)
[2017-06-27] MEDS ORDERED: NORCO, ANEXSIA 5/325MG TABLET (HYDROcodone/ACETAMINOPHEN) PO PRN (23:45)
[2017-06-27] MEDS ORDERED: ALBUTEROL 90 MCG/ACT 8GM HFA INHALER INH PRN (23:45)
[2017-06-28 06:00] VITALS: BP 120/65
[2017-06-28] MEDS ORDERED: CARVedilol 6.25 MG TAB PO SCH (09:00)
[2017-06-28] MEDS ORDERED: OMEPRAZOLE 20 MG CAP PO SCH (09:00)
[2017-06-28] MEDS: VITAMIN D 1,000 INTERNATIONAL UNITS TABLET PO SCH (09:05)
[2017-06-28] MEDS: DIVALPROEX 500MG *ER* TAB PO SCH ×2 (09:05→21:59)
[2017-06-28] MEDS: ACETAMINOPHEN TAB 650MG DOSE (2X325MG) PO PRN (09:05)
[2017-06-28] MEDS ORDERED: PPD DOCUMENTATION ENTRY MISC XX ONE (15:00)
[2017-06-28] MEDS ORDERED: GABAPENTIN 300 MG CAP PO SCH (21:00)
[2017-06-29 06:00] VITALS: BP 113/59
[2017-06-29] MEDS: DIVALPROEX 500MG *ER* TAB PO SCH ×2 (09:04→20:10)
[2017-06-29] MEDS: ACETAMINOPHEN TAB 650MG DOSE (2X325MG) PO PRN (09:04)
[2017-06-29] MEDS: VITAMIN D 1,000 INTERNATIONAL UNITS TABLET PO SCH (09:04)
[2017-06-30 06:00] VITALS: BP 110/60
[2017-06-30] MEDS: VITAMIN D 1,000 INTERNATIONAL UNITS TABLET PO SCH (08:30)
[2017-06-30] MEDS: DIVALPROEX 500MG *ER* TAB PO SCH ×2 (08:30→20:37)
[2017-06-30] MEDS: ACETAMINOPHEN TAB 650MG DOSE (2X325MG) PO PRN (08:30)
[2017-07-01 06:00] VITALS: BP 129/60
[2017-07-01] MEDS: DIVALPROEX 500MG *ER* TAB PO SCH ×2 (08:11→21:00)
[2017-07-01] MEDS: VITAMIN D 1,000 INTERNATIONAL UNITS TABLET PO SCH (08:12)
[2017-07-01 14:00] VITALS: BP 109/60
--- NOTE | 2017-07-01 16:22 | IPNPDOC ---
Subjective Date Seen The patient was seen on 07/01/17. Subjective Chief Complaint/HPI The patient is a 67-year-old female admitted with a reason for visit of Priscilla ( Acute Kidney Injury),Hypokalemia. Events since last encounter Patient states she is feeling fine today. She does not have any acute concerns Constitutional: Denies: Chills, Fever Pulmonary: Denies: Dyspnea Cardiovascular: Denies: Chest Pain Objective Physical Examination General Exam: Positive: Alert, Cooperative Chest Exam: Positive: Clear to auscultation, Normal air movement, Negative: Rales, Rhonchi, Wheezing Heart Exam: Positive: Rate Normal, Regular Rhythm, Normal S1, Normal S2, Negative: Gallops, Murmurs, Rubs Abdomen Exam: Positive: Normal bowel sounds, Soft, Negative: Tenderness, Hepatospenomegaly, Mass Extremity Exam: Negative: Edema Assessment /Plan Problems (1) Weakness Status: Acute Response to Treatment: Stable Problem Text: 07/01: As per PFS patient continues to require long-term care. Long-term care coordination may be complicated by patient requiring a multiple sclerosis drug that costs approximately $7000 per month. Patient's family may be able to help by supplying medication. Physical therapy: Patient is safe for discharge to [facility] facility 06/25 - Stable, pt hoping for STR, vs AL, she cont to work with PT. 06/07 Per nursing, they have been thus far unable to obtain a urine sample for UA due to stool contamination and the patient being incontinent. PT evaluation: unsteady with transfers, unsteady and shuffled gait, not safe for D/C home due to impaired functional mobility. I have ordered a PFS consult to help with potential placement to either Subacute Rehab or Assisted Living. Looking through her EMR I was able to find her sister Terrie Umanzor [phone] is her HCP. (2) Confusion Status: Resolved Discussed With: Nurse Problem Text: 06/25 - Deemed incomp to make own decisions, has HCP and POA now in place, family cooperative and supportive, PFS working on placement. 06/07 Patient was alert and oriented x3 today. She was calm, cooperative, and demonstrated good insight into her chronic medical conditions. She has some slight dysphonia, but is able to articulate her thoughts in a clear manner. (3) Multiple sclerosis Problem Text: 07/01: Order placed for patient to use her own home medication: plegridy 125 mcg subcutaneously every two weeks (4) Dehydration Status: Resolved Problem Text: Better with IVFs. (5) PRISCILLA (acute kidney injury) Status: Resolved (6) Hypokalemia Status: Resolved (7) Thrombocytopenia Status: Resolved Plan/VTE VTE Prophylaxis Ordered?: Yes VS, I&O, 24H, Fishbone Vital Signs/I&O Vital Signs Date Time Temp Pulse Resp B/P (MAP) Pulse Ox O2 Delivery O2 Flow Rate FiO2 07/01/17 14:00 98.5 86 16 109/60 (76) 97 Room Air I&O- Last 24 Hours up to 6 AM 07/02/17 06:00 Intake Total 120 ml Output Total 0 ml Balance 120 ml GME ATTESTATION GME ATTESTATION My faculty preceptor for this patient encounter was physically present during the encounter and was fully available. All aspects of the patient interview, examination, medical decision making process, and medical care plan development were reviewed and approved by the faculty preceptor. The faculty preceptor is aware and concurs with the plan as stated in the body of this note and will attest to such by his/her cosignature. ATTENDING NOTE I saw and examined Ms. Jameson this afternoon; I discussed her care with Dr. Jama and I agree with his note as documented. (KES) DEVIN JAMA DO Jul 01, 2017 16:22 LISHA FIGUEROA MD Jul 01, 2017 16:36
[2017-07-02 06:00] VITALS: BP 128/56
[2017-07-02] MEDS: VITAMIN D 1,000 INTERNATIONAL UNITS TABLET PO SCH (08:45)
[2017-07-02] MEDS: DIVALPROEX 500MG *ER* TAB PO SCH ×2 (08:46→20:04)
[2017-07-02 14:00] VITALS: BP 114/64
[2017-07-03 05:20] VITALS: BP 99/55
[2017-07-03 06:00] VITALS: BP 114/61
[2017-07-03] MEDS: VITAMIN D 1,000 INTERNATIONAL UNITS TABLET PO SCH (08:18)
[2017-07-03] MEDS: DIVALPROEX 500MG *ER* TAB PO SCH ×2 (08:18→19:43)
[2017-07-03 14:00] VITALS: BP 108/73
[2017-07-03 19:50] VITALS: BP 119/71
[2017-07-04 06:00] VITALS: BP 148/77
[2017-07-04] MEDS: VITAMIN D 1,000 INTERNATIONAL UNITS TABLET PO SCH (08:01)
[2017-07-04] MEDS: DIVALPROEX 500MG *ER* TAB PO SCH ×2 (08:01→19:34)
[2017-07-04 14:00] VITALS: BP 121/79
[2017-07-04 19:32] VITALS: BP 110/68
[2017-07-05 06:00] VITALS: BP 118/71
[2017-07-05] MEDS: VITAMIN D 1,000 INTERNATIONAL UNITS TABLET PO SCH (08:39)
[2017-07-05] MEDS: DIVALPROEX 500MG *ER* TAB PO SCH ×2 (08:39→20:02)
[2017-07-05 14:00] VITALS: BP 106/66
[2017-07-05 22:00] VITALS: BP 112/64
[2017-07-06 06:00] VITALS: BP 107/62
[2017-07-06 08:00] VITALS: BP 107/66
[2017-07-06] MEDS: DIVALPROEX 500MG *ER* TAB PO SCH ×2 (08:13→19:50)
[2017-07-06] MEDS: VITAMIN D 1,000 INTERNATIONAL UNITS TABLET PO SCH (08:13)
[2017-07-06 14:00] VITALS: BP 106/61
[2017-07-06] MEDS: PLEGRIDY SC SCH (18:54)
[2017-07-07 06:00] VITALS: BP 139/59
[2017-07-07] MEDS: DIVALPROEX 500MG *ER* TAB PO SCH ×2 (08:36→20:09)
[2017-07-07] MEDS: VITAMIN D 1,000 INTERNATIONAL UNITS TABLET PO SCH (08:37)
[2017-07-07 14:00] VITALS: BP 125/59
[2017-07-08 06:00] VITALS: BP 120/78
--- NOTE | 2017-07-08 08:46 | IPNPDOC ---
Subjective Date Seen The patient was seen on 07/08/17. Subjective Chief Complaint/HPI The patient is a 67-year-old female admitted with a reason for visit of Priscilla ( Acute Kidney Injury),Hypokalemia. Events since last encounter No new concerns or complaints Constitutional: Denies: Chills, Fever Pulmonary: Denies: Dyspnea, Cough Cardiovascular: Denies: Chest Pain, Palpitations Gastrointestinal: Denies: Nausea, Vomiting, Abdominal Pain, Diarrhea, Constipation Objective Physical Examination General Exam: Positive: Alert, Cooperative Chest Exam: Positive: Clear to auscultation, Normal air movement, Negative: Rales, Rhonchi, Wheezing Heart Exam: Positive: Rate Normal, Regular Rhythm, Normal S1, Normal S2, Negative: Gallops, Murmurs, Rubs Abdomen Exam: Positive: Normal bowel sounds, Soft, Negative: Tenderness, Hepatospenomegaly, Mass Extremity Exam: Negative: Edema Assessment /Plan Problems (1) Weakness Status: Acute Response to Treatment: Stable Problem Text: 07/08 - Family brought in Plegridy for patient to restart (Dose given 07/06) - she gets this twice a month. Monitor for improved functional mobility 07/01: As per PFS patient continues to require long-term care. Long-term care coordination may be complicated by patient requiring a multiple sclerosis drug that costs approximately $7000 per month. Patient's family may be able to help by supplying medication. Physical therapy: Patient is safe for discharge to [facility] 06/25 - Stable, pt hoping for STR, vs AL, she cont to work with PT. 06/07 Per nursing, they have been thus far unable to obtain a urine sample for UA due to stool contamination and the patient being incontinent. PT evaluation: unsteady with transfers, unsteady and shuffled gait, not safe for D/C home due to impaired functional mobility. I have ordered a PFS consult to help with potential placement to either Subacute Rehab or Assisted Living. Looking through her EMR I was able to find her sister Terrie Umanzor is her HCP. (2) Confusion Status: Resolved Discussed With: Nurse Problem Text: 06/25 - Deemed incomp to make own decisions, has HCP and POA now in place, family cooperative and supportive, PFS working on placement. 06/07 Patient was alert and oriented x3 today. She was calm, cooperative, and demonstrated good insight into her chronic medical conditions. She has some slight dysphonia, but is able to articulate her thoughts in a clear manner. (3) Multiple sclerosis Problem Text: 07/01: Order placed for patient to use her own home medication: plegridy 125 mcg subcutaneously every two weeks (4) Dehydration Status: Resolved Problem Text: Better with IVFs. (5) PRISCILLA (acute kidney injury) Status: Resolved (6) Hypokalemia Status: Resolved (7) Thrombocytopenia Status: Resolved (8) Fever Status: Acute Problem Text: will check cXR, u/a (cath) and culture as well as Influenza screen. if neg and still feverish consider resp. panel. Plan/VTE VTE Prophylaxis Ordered?: Yes Disposition Continue SNF VS, I&O, 24H, Fishbone Vital Signs/I&O Vital Signs Date Time Temp Pulse Resp B/P (MAP) Pulse Ox O2 Delivery O2 Flow Rate FiO2 07/08/17 06:00 99.0 96 18 120/78 (92) 97 Room Air JAMMIE SMITH PA-C Jul 08, 2017 08:46 Kamron Zuleta MD Jul 08, 2017 14:39
[2017-07-08] MEDS: VITAMIN D 1,000 INTERNATIONAL UNITS TABLET PO SCH (08:47)
[2017-07-08] MEDS: DIVALPROEX 500MG *ER* TAB PO SCH ×2 (08:47→21:04)
[2017-07-08] MEDS: ACETAMINOPHEN TAB 650MG DOSE (2X325MG) PO PRN (09:47)
[2017-07-08 09:50] VITALS: BP 136/66
[2017-07-08 11:01] LABS: BASO % 0.1 % (0.0-1.0); IMMATURE GRANULOCYTE % 0.4 % (0-0); LYMPH # 0.7 10^3/uL (1.5-4.5); LYMPH % 8.6 % (24.0-44.0); MEAN CORPUSCULAR HEMOGLOBIN 32.6 pg (27.0-33.0); MEAN CORPUSCULAR HGB CONC 33.6 g/dl (32.0-36.5); MEAN CORPUSCULAR VOLUME 97.1 fl (80.0-96.0); MONO # 1.7 10^3/uL (0.0-0.8); MONO % 20.4 % (0.0-5.0); NEUTROPHILS % 70.5 % (36.0-66.0); PLATELET COUNT, AUTOMATED 187 10^3/uL (150-450); RED CELL DISTRIBUTION WIDTH 13.2 % (11.5-14.5); WHITE BLOOD COUNT 8.5 10^3/uL (4.0-10.0)
[2017-07-08 11:30] LABS: ALBUMIN 2.2 GM/DL (3.2-5.2); ALBUMIN/GLOBULIN RATIO 0.61 (1.00-1.93); BILIRUBIN,TOTAL 0.2 MG/DL (0.2-1.0); CALCIUM LEVEL 8.6 MG/DL (8.8-10.2); GLOMERULAR FILTRATION RATE 58.5 (>45); POTASSIUM SERUM 3.9 MEQ/L (3.5-5.1); TOTAL PROTEIN 5.8 GM/DL (6.4-8.2)
[2017-07-08 14:00] VITALS: BP 105/60
--- NOTE | 2017-07-08 15:01 | REP ---
Clinical: Fever. Comparison: 06/05/2017. Technique: PA and lateral. Findings: The mediastinum and cardiac silhouette are normal. The lung conway are clear and without acute consolidation, effusion, or pneumothorax. The skeletal structures are intact and normal. Impression: 1. No acute cardiopulmonary process. Signed by Burton Young MD 07/08/2017 02:53 P
[2017-07-08] MEDS: BACTRIM SUSP 160MG/800MG PER 20ML ORAL SYRINGE PO SCH (21:05)
[2017-07-08 22:00] VITALS: BP 130/60
[2017-07-09 06:00] VITALS: BP 125/58
[2017-07-09] MEDS: VITAMIN D 1,000 INTERNATIONAL UNITS TABLET PO SCH (08:49)
[2017-07-09] MEDS: BACTRIM SUSP 160MG/800MG PER 20ML ORAL SYRINGE PO SCH ×2 (08:51→20:13)
[2017-07-09] MEDS: DIVALPROEX 500MG *ER* TAB PO SCH ×2 (08:51→20:13)
[2017-07-09 10:23] VITALS: BP 133/57
[2017-07-09 14:00] VITALS: BP 104/61
[2017-07-10 06:00] VITALS: BP 109/60
[2017-07-10] MEDS: BACTRIM SUSP 160MG/800MG PER 20ML ORAL SYRINGE PO SCH ×2 (08:08→19:49)
[2017-07-10] MEDS: DIVALPROEX 500MG *ER* TAB PO SCH ×2 (08:08→19:49)
[2017-07-10] MEDS: VITAMIN D 1,000 INTERNATIONAL UNITS TABLET PO SCH (08:08)
[2017-07-10] MEDS: ACETAMINOPHEN TAB 650MG DOSE (2X325MG) PO PRN (08:08)
[2017-07-10 14:00] VITALS: BP 113/60
[2017-07-11 06:00] VITALS: BP 107/58
[2017-07-11] MEDS: DIVALPROEX 500MG *ER* TAB PO SCH ×2 (09:17→20:42)
[2017-07-11] MEDS: BACTRIM SUSP 160MG/800MG PER 20ML ORAL SYRINGE PO SCH (09:18)
[2017-07-11] MEDS: VITAMIN D 1,000 INTERNATIONAL UNITS TABLET PO SCH (09:18)
--- NOTE | 2017-07-11 14:17 | IPNPDOC ---
Date Seen Chart review Progress Note Urine culture results were reviewed - positive for Pseudomonas and Proteus; she has been on Bactrim, but pseudomonas is not sensitive to this. Bactrim was stopped and she was started on levofloxacin renally dosed for total 5 day course. She has remained afebrile for the past 2 days. VS, I&O, 24H, Fishbone Vital Signs/I&O Vital Signs Date Time Temp Pulse Resp B/P (MAP) Pulse Ox O2 Delivery O2 Flow Rate FiO2 07/11/17 06:00 97.0 75 18 107/58 (74) 97 Room Air I&O- Last 24 Hours up to 6 AM 07/12/17 06:00 Intake Total 120 ml Balance 120 ml Laboratory Data Microbiology Microbiology 07/08/17 Influenza Virus Type A Antigen - Final, Complete 07/08/17 Influenza Virus Type B Antigen - Final, Complete 07/08/17 Urine Culture - Final, Complete Pseudomonas Aeruginosa Proteus Mirabilis LISHA FIGUEROA MD Jul 11, 2017 14:17
[2017-07-11] MEDS ORDERED: LevoFLOXacin 500 MG TABLET PO ONE (14:30)
[2017-07-12] MEDS: LevoFLOXacin 250 MG TABLET PO SCH (05:25)
[2017-07-12 06:00] VITALS: BP 107/56
[2017-07-12] MEDS: DIVALPROEX 500MG *ER* TAB PO SCH ×2 (09:21→21:25)
[2017-07-12] MEDS: VITAMIN D 1,000 INTERNATIONAL UNITS TABLET PO SCH (09:21)
[2017-07-12] MEDS: ACETAMINOPHEN TAB 650MG DOSE (2X325MG) PO PRN (21:26)
[2017-07-13] MEDS: LevoFLOXacin 250 MG TABLET PO SCH (05:38)
[2017-07-13 06:00] VITALS: BP 98/54
[2017-07-13] MEDS: DIVALPROEX 500MG *ER* TAB PO SCH ×2 (08:33→21:29)
[2017-07-13] MEDS: VITAMIN D 1,000 INTERNATIONAL UNITS TABLET PO SCH (08:34)
[2017-07-14 06:00] VITALS: BP 120/58
[2017-07-14] MEDS: LevoFLOXacin 250 MG TABLET PO SCH (06:47)
[2017-07-14] MEDS: VITAMIN D 1,000 INTERNATIONAL UNITS TABLET PO SCH (08:32)
[2017-07-14] MEDS: DIVALPROEX SPRINKLE 125 MG CAP PO SCH ×4 (10:20→20:09)
[2017-07-15] MEDS: LevoFLOXacin 250 MG TABLET PO SCH (05:37)
[2017-07-15 06:00] VITALS: BP 107/53
[2017-07-15] MEDS: DIVALPROEX SPRINKLE 125 MG CAP PO SCH ×4 (09:31→20:20)
[2017-07-15] MEDS: VITAMIN D 1,000 INTERNATIONAL UNITS TABLET PO SCH (09:32)
[2017-07-16 06:00] VITALS: BP 102/59
[2017-07-16] MEDS: VITAMIN D 1,000 INTERNATIONAL UNITS TABLET PO SCH (08:53)
[2017-07-16] MEDS: DIVALPROEX SPRINKLE 125 MG CAP PO SCH ×4 (08:53→20:29)
[2017-07-17 06:00] VITALS: BP 111/57
[2017-07-17] MEDS: VITAMIN D 1,000 INTERNATIONAL UNITS TABLET PO SCH (08:22)
[2017-07-17] MEDS: DIVALPROEX SPRINKLE 125 MG CAP PO SCH ×4 (08:23→19:47)
[2017-07-18 06:00] VITALS: BP 112/56
[2017-07-18] MEDS: DIVALPROEX SPRINKLE 125 MG CAP PO SCH ×4 (08:24→21:42)
[2017-07-18] MEDS: VITAMIN D 1,000 INTERNATIONAL UNITS TABLET PO SCH (08:24)
[2017-07-19 06:00] VITALS: BP 112/55
[2017-07-19] MEDS: DIVALPROEX SPRINKLE 125 MG CAP PO SCH ×4 (08:28→19:57)
[2017-07-19] MEDS: VITAMIN D 1,000 INTERNATIONAL UNITS TABLET PO SCH (08:29)
--- NOTE | 2017-07-19 18:40 | IPNPDOC ---
Subjective Date Seen The patient was seen on 07/19/17. Subjective Chief Complaint/HPI The patient is a 67-year-old female admitted with a reason for visit of Misael ( Acute Kidney Injury),Hypokalemia. Events since last encounter Patient complained of desire to be home. PFS notes suggest no definite discharge plan. Denies any other plan. Constitutional: Denies: Chills, Fever Skin: Denies: Rash Pulmonary: Denies: Dyspnea, Cough Cardiovascular: Denies: Chest Pain Gastrointestinal: Denies: Nausea, Vomiting, Diarrhea, Constipation Genitourinary: Denies: Dysuria Objective Physical Examination General Exam: Positive: Alert, Cooperative Chest Exam: Positive: Clear to auscultation, Normal air movement, Negative: Rales, Rhonchi, Wheezing Heart Exam: Positive: Rate Normal, Regular Rhythm, Normal S1, Normal S2, Negative: Gallops, Murmurs, Rubs Abdomen Exam: Positive: Normal bowel sounds, Soft, Negative: Tenderness, Hepatospenomegaly, Mass Extremity Exam: Negative: Edema Assessment /Plan Problems (1) Weakness Status: Acute Response to Treatment: Stable Problem Text: 07/08 - Family brought in Plegridy for patient to restart (Dose given 07/06) - she gets this twice a month. Monitor for improved functional mobility 07/01: As per PFS patient continues to require long-term care. Long-term care coordination may be complicated by patient requiring a multiple sclerosis drug that costs approximately $7000 per month. Patient's family may be able to help by supplying medication. Physical therapy: Patient is safe for discharge to [facility] facility 06/25 - Stable, pt hoping for STR, vs AL, she cont to work with PT. 06/07 Per nursing, they have been thus far unable to obtain a urine sample for UA due to stool contamination and the patient being incontinent. PT evaluation: unsteady with transfers, unsteady and shuffled gait, not safe for D/C home due to impaired functional mobility. I have ordered a PFS consult to help with potential placement to either Subacute Rehab or Assisted Living. Looking through her EMR I was able to find her sister Terrie Umanzor [phone] is her HCP. (2) Confusion Status: Resolved Discussed With: Nurse Problem Text: 07/19 -- no placement identified yet 06/25 - Deemed incomp to make own decisions, has HCP and POA now in place, family cooperative and supportive, PFS working on placement. 06/07 Patient was alert and oriented x3 today. She was calm, cooperative, and demonstrated good insight into her chronic medical conditions. She has some slight dysphonia, but is able to articulate her thoughts in a clear manner. (3) Multiple sclerosis Problem Text: 07/01: Order placed for patient to use her own home medication: plegridy 125 mcg subcutaneously every two weeks (4) Dehydration Status: Resolved Problem Text: Better with IVFs. (5) MISAEL (acute kidney injury) Status: Resolved (6) Hypokalemia Status: Resolved (7) Thrombocytopenia Status: Resolved (8) Fever Status: Resolved Problem Text: will check cXR, u/a (cath) and culture as well as Influenza screen. if neg and still feverish consider resp. panel. Plan/VTE VTE Prophylaxis Ordered?: Yes VS, I&O, 24H, Fishbone Vital Signs/I&O Vital Signs Date Time Temp Pulse Resp B/P (MAP) Pulse Ox O2 Delivery O2 Flow Rate FiO2 07/19/17 08:00 Room Air 07/19/17 06:00 97.4 73 16 112/55 (74) 96 I&O- Last 24 Hours up to 6 AM 07/20/17 06:00 Intake Total 990 ml Output Total 0 ml Balance 990 ml OLIVIER BAKER DO Jul 19, 2017 18:40
[2017-07-20 06:00] VITALS: BP 100/57
[2017-07-20] MEDS: DIVALPROEX SPRINKLE 125 MG CAP PO SCH ×4 (09:26→21:25)
[2017-07-20] MEDS: VITAMIN D 1,000 INTERNATIONAL UNITS TABLET PO SCH (09:26)
[2017-07-20] MEDS: PLEGRIDY SC SCH (09:27)
[2017-07-21 06:00] VITALS: BP 126/58
[2017-07-21] MEDS ORDERED: DEPA125C PO (08:11)
[2017-07-21] MEDS ORDERED: Acetaminophen Tab PO (08:11)
[2017-07-21] MEDS: VITAMIN D 1,000 INTERNATIONAL UNITS TABLET PO SCH (09:00)
[2017-07-21] MEDS: DIVALPROEX SPRINKLE 125 MG CAP PO SCH (09:00)
== END 2017-07-21 12:10 | DRG 689 ==
LOC: EDBD 14:38 → M ED 14:38 → M ED INP 21:58 → M MS5PR 06-06 00:25 → OBSVTOIN 06-07 12:45 → M MS5PR 07-13 15:35
PROVIDERS: ADMIT Hospitalist; ATTEND Family Medicine
DX: N39.0 Urinary tract infection, site not specified (principal); G93.41 Metabolic encephalopathy; N17.9 Acute kidney failure, unspecified; D69.6 Thrombocytopenia, unspecified; E86.0 Dehydration; D64.9 Anemia, unspecified; B96.29 Other Escherichia coli [E. coli] as the cause of diseases classified elsewhere; G35 Multiple sclerosis; E78.5 Hyperlipidemia, unspecified; E55.9 Vitamin D deficiency, unspecified; Z87.891 Personal history of nicotine dependence; E87.6 Hypokalemia; F32.9 Major depressive disorder, single episode, unspecified; H10.9 Unspecified conjunctivitis; H01.003 Unspecified blepharitis right eye, unspecified eyelid; Z79.899 Other long term (current) drug therapy

== ENCOUNTER → 2017-07-28 | Outpatient (REF) ==
[~2017-07-28] MED LIST changes: +Acetaminophen Tab PO; +DEPA125C PO; +PLEG15IN SC; +VALI5TAB PO; +VITA200016 PO; +VITA500046 PO
[2017-07-28 10:31] LABS: MEAN CORPUSCULAR HEMOGLOBIN 32.9 pg (27.0-33.0); MEAN CORPUSCULAR HGB CONC 32.7 g/dl (32.0-36.5); MEAN CORPUSCULAR VOLUME 100.4 fl (80.0-96.0); RED CELL DISTRIBUTION WIDTH 14.4 % (11.5-14.5); WHITE BLOOD COUNT 3.2 10^3/uL (4.0-10.0)
[2017-07-28 10:47] LABS: ALBUMIN 2.3 GM/DL (3.2-5.2); ALBUMIN/GLOBULIN RATIO 0.77 (1.00-1.93); ALKALINE PHOSPHATASE 42 U/L (45-117); ALT/SGPT 11 U/L (12-78); ANION GAP 8 MEQ/L (8-16); AST/SGOT 13 U/L (7-37); BILIRUBIN,TOTAL 0.2 MG/DL (0.2-1.0); BLOOD UREA NITROGEN 24 MG/DL (7-18); CALCIUM LEVEL 8.1 MG/DL (8.8-10.2); CARBON DIOXIDE LEVEL 28 MEQ/L (21-32); CHLORIDE LEVEL 108 MEQ/L (98-107); CREATININE FOR GFR 0.72 MG/DL (0.55-1.02); GLOMERULAR FILTRATION RATE > 60.0 (>45); GLUCOSE, FASTING 70 MG/DL (80-110); SODIUM LEVEL 144 MEQ/L (136-145); TOTAL PROTEIN 5.3 GM/DL (6.4-8.2)
[2017-07-28 11:03] LABS: PLATELET COUNT, AUTOMATED 91 10^3/uL (150-450)
[2017-07-28 11:04] LABS: IMMATURE PLATELET FRACTION % 4.7 % (0.0-9.6)
== END ==
DX: F32.9 Major depressive disorder, single episode, unspecified (principal)

== ENCOUNTER → 2017-07-29 | Outpatient (REF) ==
[2017-07-29 11:16] LABS: MEAN CORPUSCULAR HEMOGLOBIN 32.5 pg (27.0-33.0); MEAN CORPUSCULAR HGB CONC 32.8 g/dl (32.0-36.5); MEAN CORPUSCULAR VOLUME 99.1 fl (80.0-96.0); PLATELET COUNT, AUTOMATED 127 10^3/uL (150-450); RED CELL DISTRIBUTION WIDTH 14.6 % (11.5-14.5); WHITE BLOOD COUNT 4.7 10^3/uL (4.0-10.0)
[2017-07-29 11:48] LABS: PERCENT SATURATION 27.6 % (13.2-45.0)
== END ==
DX: D64.9 Anemia, unspecified (principal)

== ENCOUNTER → 2017-08-11 | Outpatient (REF) ==
[2017-08-11 14:44] LABS: ALBUMIN/GLOBULIN RATIO 0.91 (1.00-1.93); ALKALINE PHOSPHATASE 47 U/L (45-117); ALT/SGPT 13 U/L (12-78); ANION GAP 8 MEQ/L (8-16); AST/SGOT 24 U/L (7-37); BILIRUBIN,TOTAL 0.3 MG/DL (0.2-1.0); BLOOD UREA NITROGEN 19 MG/DL (7-18); CALCIUM LEVEL 8.4 MG/DL (8.8-10.2); CARBON DIOXIDE LEVEL 29 MEQ/L (21-32); CHLORIDE LEVEL 105 MEQ/L (98-107); CREATININE FOR GFR 0.72 MG/DL (0.55-1.02); GLOMERULAR FILTRATION RATE > 60.0 (>45); GLUCOSE, FASTING 78 MG/DL (80-110); POTASSIUM SERUM 3.9 MEQ/L (3.5-5.1); SODIUM LEVEL 142 MEQ/L (136-145); TOTAL PROTEIN 6.3 GM/DL (6.4-8.2); VALPROIC ACID (DEPAKOTE) 104.5 UG/ML (50.0-100.0)
[2017-08-11 15:17] LABS: HEMATOCRIT 35.9 % (36.0-47.0); HEMOGLOBIN 11.7 g/dl (12.0-16.0); MEAN CORPUSCULAR HEMOGLOBIN 32.5 pg (27.0-33.0); MEAN CORPUSCULAR HGB CONC 32.6 g/dl (32.0-36.5); MEAN CORPUSCULAR VOLUME 99.7 fl (80.0-96.0); RED CELL DISTRIBUTION WIDTH 14.9 % (11.5-14.5); WHITE BLOOD COUNT 4.1 10^3/uL (4.0-10.0)
[2017-08-11 15:19] LABS: PLATELET COUNT, AUTOMATED 92 10^3/uL (150-450)
[2017-08-11 21:44] LABS: IMMATURE PLATELET FRACTION % 3.8 % (0.0-9.6)
== END ==
DX: F33.9 Major depressive disorder, recurrent, unspecified (principal)

== ENCOUNTER → 2017-08-25 | Outpatient (REF) ==
[2017-08-25 11:28] LABS: HEMATOCRIT 34.2 % (36.0-47.0); HEMOGLOBIN 11.1 g/dl (12.0-16.0); MEAN CORPUSCULAR HEMOGLOBIN 32.8 pg (27.0-33.0); MEAN CORPUSCULAR HGB CONC 32.5 g/dl (32.0-36.5); MEAN CORPUSCULAR VOLUME 101.2 fl (80.0-96.0); PLATELET COUNT, AUTOMATED 134 10^3/uL (150-450); RED BLOOD COUNT 3.38 10^6/uL (4.00-5.40); RED CELL DISTRIBUTION WIDTH 14.6 % (11.5-14.5); WHITE BLOOD COUNT 3.9 10^3/uL (4.0-10.0)
== END ==
DX: D64.9 Anemia, unspecified (principal)

== ENCOUNTER → 2017-09-16 | Outpatient (REF) | payer MEDICARE, OTHER ==
[2017-09-16 10:28] LABS: VALPROIC ACID (DEPAKOTE) 96.3 UG/ML (50.0-100.0)
== END ==
DX: Z51.81 Encounter for therapeutic drug level monitoring (principal)
CPT/HCPCS: 80164

== ENCOUNTER → 2017-09-22 | Outpatient (REF) ==
[2017-09-22 11:23] LABS: HEMATOCRIT 37.5 % (36.0-47.0); HEMOGLOBIN 12.3 g/dl (12.0-16.0); MEAN CORPUSCULAR HEMOGLOBIN 32.8 pg (27.0-33.0); MEAN CORPUSCULAR HGB CONC 32.8 g/dl (32.0-36.5); PLATELET COUNT, AUTOMATED 143 10^3/uL (150-450); RED BLOOD COUNT 3.75 10^6/uL (4.00-5.40); RED CELL DISTRIBUTION WIDTH 13.8 % (11.5-14.5); WHITE BLOOD COUNT 3.7 10^3/uL (4.0-10.0)
== END ==
DX: D69.6 Thrombocytopenia, unspecified (principal)

== ENCOUNTER → 2017-10-14 | Outpatient (REF) | payer MEDICARE, OTHER ==
[2017-10-14 08:27] LABS: VALPROIC ACID (DEPAKOTE) 80.5 UG/ML (50.0-100.0)
== END ==
DX: Z51.81 Encounter for therapeutic drug level monitoring (principal)
CPT/HCPCS: 80164

== ENCOUNTER → 2017-11-10 | Outpatient (REF) | payer MEDICARE, OTHER ==
[2017-11-10 10:24] LABS: ALBUMIN/GLOBULIN RATIO 0.97 (1.00-1.93); ALKALINE PHOSPHATASE 67 U/L (45-117); ALT/SGPT 22 U/L (12-78); AST/SGOT 32 U/L (7-37); BILIRUBIN,DIRECT 0.1 MG/DL (0.0-0.2); BILIRUBIN,TOTAL 0.3 MG/DL (0.2-1.0); TOTAL PROTEIN 6.1 GM/DL (6.4-8.2)
== END ==
DX: F32.9 Major depressive disorder, single episode, unspecified (principal)
CPT/HCPCS: 80164

== ENCOUNTER → 2017-12-11 | Outpatient (REF) | payer MEDICARE, OTHER ==
[2017-12-11 10:11] LABS: BASO % 0.3 % (0.0-1.0); EOS % 0.6 % (0.0-3.0); HEMATOCRIT 35.1 % (36.0-47.0); HEMOGLOBIN 11.9 g/dl (12.0-15.5); IMMATURE GRANULOCYTE % 0.3 % (0-3.0); LYMPH # 1.8 10^3/uL (1.5-4.5); LYMPH % 51.3 % (24.0-44.0); MEAN CORPUSCULAR HEMOGLOBIN 33.5 pg (27.0-33.0); MEAN CORPUSCULAR HGB CONC 33.9 g/dl (32.0-36.5); MEAN CORPUSCULAR VOLUME 98.9 fl (80.0-96.0); MONO # 0.4 10^3/uL (0.0-0.8); MONO % 10.7 % (0.0-5.0); NEUTROPHILS # 1.3 10^3/uL (1.8-7.7); NEUTROPHILS % 36.8 % (36.0-66.0); PLATELET COUNT, AUTOMATED 105 10^3/uL (150-450); RED BLOOD COUNT 3.55 10^6/uL (4.00-5.40); RED CELL DISTRIBUTION WIDTH 13.6 % (11.5-14.5); WHITE BLOOD COUNT 3.6 10^3/uL (4.0-10.0)
[2017-12-11 10:39] LABS: ALBUMIN 3.1 GM/DL (3.2-5.2); ALBUMIN/GLOBULIN RATIO 0.97 (1.00-1.93); ALKALINE PHOSPHATASE 71 U/L (45-117); ALT/SGPT 30 U/L (12-78); ANION GAP 9 MEQ/L (8-16); AST/SGOT 29 U/L (7-37); BILIRUBIN,TOTAL 0.2 MG/DL (0.2-1.0); BLOOD UREA NITROGEN 25 MG/DL (7-18); CALCIUM LEVEL 8.8 MG/DL (8.8-10.2); CARBON DIOXIDE LEVEL 26 MEQ/L (21-32); CHLORIDE LEVEL 109 MEQ/L (98-107); CREATININE FOR GFR 0.87 MG/DL (0.55-1.30); GLOMERULAR FILTRATION RATE > 60.0 (>45); GLUCOSE, FASTING 82 MG/DL (70-100); SODIUM LEVEL 144 MEQ/L (136-145); TOTAL PROTEIN 6.3 GM/DL (6.4-8.2); VALPROIC ACID (DEPAKOTE) 102.8 UG/ML (50.0-100.0)
[2017-12-11 10:41] LABS: POTASSIUM SERUM 5.2 MEQ/L (3.5-5.1)
== END ==
DX: F32.9 Major depressive disorder, single episode, unspecified (principal)
CPT/HCPCS: 80164

== ENCOUNTER → 2018-01-12 | Outpatient (REF) | payer MEDICARE, OTHER ==
[2018-01-12 10:19] LABS: HEMATOCRIT 35.7 % (36.0-47.0); HEMOGLOBIN 11.7 g/dl (12.0-15.5); MEAN CORPUSCULAR HEMOGLOBIN 32.8 pg (27.0-33.0); MEAN CORPUSCULAR HGB CONC 32.8 g/dl (32.0-36.5); PLATELET COUNT, AUTOMATED 103 10^3/uL (150-450); RED BLOOD COUNT 3.57 10^6/uL (4.00-5.40); RED CELL DISTRIBUTION WIDTH 13.8 % (11.5-14.5); WHITE BLOOD COUNT 2.8 10^3/uL (4.0-10.0)
[2018-01-12 10:35] LABS: TOTAL 25(OH) VITAMIN D 53.1 NG/ML (30.0-100.0)
[2018-01-14 12:35] LABS: FREE T3 2.1 PG/ML (2.2-4.0)
[2018-01-14 12:35] LABS: FREE T4 0.86 NG/DL (0.76-1.46)
== END ==
DX: E55.9 Vitamin D deficiency, unspecified (principal); D69.6 Thrombocytopenia, unspecified; Z79.899 Other long term (current) drug therapy
CPT/HCPCS: 84443

== ENCOUNTER → 2018-02-09 | Outpatient (REF) | payer MEDICARE, OTHER ==
[2018-02-09 11:24] LABS: VALPROIC ACID (DEPAKOTE) 101.4 UG/ML (50.0-100.0)
== END ==
DX: G35 Multiple sclerosis (principal)
CPT/HCPCS: 80164

== ENCOUNTER → 2018-02-22 | Outpatient (REF) | payer MEDICARE, OTHER | DX: E03.9 Hypothyroidism, unspecified (principal) | CPT/HCPCS: 84443 ==

== ENCOUNTER → 2018-03-02 | Outpatient (REF) | payer MEDICARE, OTHER ==
[2018-03-02 18:25] LABS: APPEARANCE, URINE TURBID (CLEAR); BACTERIA, URINE AUTO 2+ (NEGATIVE); BILIRUBIN, URINE AUTO NEGATIVE (NEGATIVE); BLOOD, URINE BLOOD NEGATIVE (NEGATIVE); COLOR, URINE YELLOW (YELLOW); GLUCOSE, URINE (UA) AUTO NEGATIVE (NEGATIVE); KETONE, URINE AUTO TRACE mg/dL (NEGATIVE); LEUKOCYTE ESTERASE, URINE AUTO 3+ (NEGATIVE); MUCUS, URINE SMALL (NEGATIVE); NITRITE, URINE AUTO NEGATIVE (NEGATIVE); PROTEIN, URINE AUTO NEGATIVE (NEGATIVE); RBC, URINE AUTO 9 /HPF (0-3); SPECIFIC GRAVITY URINE AUTO 1.018 (1.002-1.035); SQUAMOUS EPITHELIAL CELL UR AU 1 /HPF (0-6); UROBILINOGEN, URINE AUTO 0.2 mg/dL (0.0-2.0); WBC, URINE AUTO TNTC /HPF (0-3)
== END ==
DX: R53.1 Weakness (principal); R29.6 Repeated falls
CPT/HCPCS: 81001

== ENCOUNTER → 2018-06-01 | Outpatient (REF) | payer MEDICARE, OTHER ==
[2018-06-01 10:04] LABS: ALBUMIN 3.1 GM/DL (3.2-5.2); ALBUMIN/GLOBULIN RATIO 0.97 (1.00-1.93); ALKALINE PHOSPHATASE 66 U/L (45-117); ALT/SGPT 24 U/L (12-78); ANION GAP 10 MEQ/L (8-16); AST/SGOT 23 U/L (7-37); BILIRUBIN,TOTAL 0.4 MG/DL (0.2-1.0); BLOOD UREA NITROGEN 27 MG/DL (7-18); CALCIUM LEVEL 8.7 MG/DL (8.8-10.2); CARBON DIOXIDE LEVEL 25 MEQ/L (21-32); CHLORIDE LEVEL 107 MEQ/L (98-107); CREATININE FOR GFR 0.92 MG/DL (0.55-1.30); GLOMERULAR FILTRATION RATE > 60.0 (>39); GLUCOSE, FASTING 85 MG/DL (70-100); POTASSIUM SERUM 4.3 MEQ/L (3.5-5.1); SODIUM LEVEL 142 MEQ/L (136-145); TOTAL PROTEIN 6.3 GM/DL (6.4-8.2)
[2018-06-01 12:36] LABS: GOLD SPEC TUBE RECIEVED
== END ==
DX: E03.9 Hypothyroidism, unspecified (principal); E55.9 Vitamin D deficiency, unspecified; R42 Dizziness and giddiness; Z79.899 Other long term (current) drug therapy
CPT/HCPCS: 84443

== ENCOUNTER → 2018-08-11 | Outpatient (REF) | payer MEDICARE, OTHER ==
[~2018-08-11] MED LIST changes: -DEPA125C PO; +DEPA1CAP PO
[2018-08-11 12:23] LABS: FREE T4 1.43 NG/DL (0.76-1.46); THYROID STIMULATING HORMONE 0.13 uIU/ML (0.358-3.740); TOTAL 25(OH) VITAMIN D 48.4 NG/ML (30.0-100.0)
== END ==
PROVIDERS: ATTEND Nurse Practitioner Family
DX: E03.9 Hypothyroidism, unspecified (principal); E55.9 Vitamin D deficiency, unspecified; Z79.899 Other long term (current) drug therapy

== ENCOUNTER → 2018-09-28 | Outpatient (REF) | payer MEDICARE, OTHER ==
[2018-09-28 23:08] LABS: AMORPHOUS SEDIMENT SMALL (NEGATIVE); APPEARANCE, URINE CLOUDY (CLEAR); BACTERIA, URINE AUTO 2+ (NEGATIVE); BILIRUBIN, URINE AUTO NEGATIVE (NEGATIVE); BLOOD, URINE BLOOD NEGATIVE (NEGATIVE); COLOR, URINE YELLOW (YELLOW); GLUCOSE, URINE (UA) AUTO NEGATIVE (NEGATIVE); KETONE, URINE AUTO 1+ mg/dL (NEGATIVE); LEUKOCYTE ESTERASE, URINE AUTO 3+ (NEGATIVE); MUCUS, URINE SMALL (NEGATIVE); NITRITE, URINE AUTO POSITIVE (NEGATIVE); PROTEIN, URINE AUTO 2+ mg/dL (NEGATIVE); RBC, URINE AUTO 33 /HPF (0-3); SPECIFIC GRAVITY URINE AUTO 1.016 (1.002-1.035); SQUAMOUS EPITHELIAL CELL UR AU 0 /HPF (0-6); TRANSITIONAL EPITHELIAL AUTO 9 /HPF; UROBILINOGEN, URINE AUTO 0.2 mg/dL (0.0-2.0); WBC, URINE AUTO TNTC /HPF (0-3)
== END ==
PROVIDERS: ATTEND Family Medicine
DX: R30.0 Dysuria (principal)

== ENCOUNTER → 2018-10-26 | Outpatient (REF) | payer MEDICARE, OTHER ==
[2018-10-26 10:06] LABS: BASO % 0.3 % (0.0-1.0); EOS % 0.7 % (0.0-3.0); HEMATOCRIT 35.5 % (36.0-47.0); HEMOGLOBIN 11.8 g/dl (12.0-15.5); LYMPH % 35.4 % (24.0-44.0); MEAN CORPUSCULAR HEMOGLOBIN 33.3 pg (27.0-33.0); MEAN CORPUSCULAR HGB CONC 33.2 g/dl (32.0-36.5); MEAN CORPUSCULAR VOLUME 100.3 fl (80.0-96.0); MONO # 0.5 10^3/uL (0.0-0.8); MONO % 15.5 % (0.0-5.0); NEUTROPHILS # 1.4 10^3/uL (1.8-7.7); NEUTROPHILS % 47.1 % (36.0-66.0); PLATELET COUNT, AUTOMATED 115 10^3/uL (150-450); RED BLOOD COUNT 3.54 10^6/uL (4.00-5.40); WHITE BLOOD COUNT 2.9 10^3/uL (4.0-10.0)
[2018-10-26 10:39] LABS: ALBUMIN 3.2 GM/DL (3.2-5.2); ALT/SGPT 26 U/L (12-78); BILIRUBIN,TOTAL 0.4 MG/DL (0.2-1.0); BLOOD UREA NITROGEN 22 MG/DL (7-18); CALCIUM LEVEL 8.8 MG/DL (8.8-10.2); CARBON DIOXIDE LEVEL 28 MEQ/L (21-32); CHLORIDE LEVEL 107 MEQ/L (98-107); CREATININE FOR GFR 0.79 MG/DL (0.55-1.30); FOLATE 14.9 NG/ML; GLOMERULAR FILTRATION RATE > 60.0 (>39); GLUCOSE, FASTING 74 MG/DL (70-100); POTASSIUM SERUM 4.4 MEQ/L (3.5-5.1); SODIUM LEVEL 142 MEQ/L (136-145); VITAMIN B12 LEVEL 371 PG/ML
== END ==
PROVIDERS: ATTEND Psychiatry & Neurology Neurology
DX: G35 Multiple sclerosis (principal)

== ENCOUNTER → 2018-11-09 | Outpatient (REF) | payer MEDICARE, OTHER ==
[2018-11-09 14:15] LABS: FREE T4 1.78 NG/DL (0.76-1.46); THYROID STIMULATING HORMONE 0.013 uIU/ML (0.358-3.740); TOTAL 25(OH) VITAMIN D 56.2 NG/ML (30.0-100.0)
== END ==
LOC: M SFHCPLAZ 11:50
PROVIDERS: ATTEND Nurse Practitioner Family
DX: E03.9 Hypothyroidism, unspecified (principal); E55.9 Vitamin D deficiency, unspecified
CPT/HCPCS: 36415; 82306; 84439; 84443; G0463

== ENCOUNTER → 2018-11-16 | Outpatient (REF) | payer MEDICARE, OTHER ==
[2018-11-17 10:49] LABS: AMORPHOUS SEDIMENT MODERATE (NEGATIVE); APPEARANCE, URINE HAZY (CLEAR); BACTERIA, URINE AUTO 2+ (NEGATIVE); BILIRUBIN, URINE AUTO NEGATIVE (NEGATIVE); BLOOD, URINE BLOOD NEGATIVE (NEGATIVE); COLOR, URINE YELLOW (YELLOW); GLUCOSE, URINE (UA) AUTO NEGATIVE (NEGATIVE); KETONE, URINE AUTO TRACE mg/dL (NEGATIVE); LEUKOCYTE ESTERASE, URINE AUTO 2+ (NEGATIVE); NITRITE, URINE AUTO NEGATIVE (NEGATIVE); PROTEIN, URINE AUTO NEGATIVE (NEGATIVE); RBC, URINE AUTO 2 /HPF (0-3); SPECIFIC GRAVITY URINE AUTO 1.014 (1.002-1.035); SQUAMOUS EPITHELIAL CELL UR AU 0 /HPF (0-6); WBC, URINE AUTO 60 /HPF (0-3)
== END ==
PROVIDERS: ATTEND Nurse Practitioner Family
DX: R35.0 Frequency of micturition (principal)

== ENCOUNTER → 2018-12-27 | Outpatient (REF) | payer MEDICARE, OTHER ==
[2018-12-27 18:38] LABS: AMORPHOUS SEDIMENT SMALL (NEGATIVE); APPEARANCE, URINE TURBID (CLEAR); BACTERIA, URINE AUTO 3+ (NEGATIVE); BILIRUBIN, URINE AUTO NEGATIVE (NEGATIVE); BLOOD, URINE BLOOD 2+ (NEGATIVE); COLOR, URINE YELLOW (YELLOW); GLUCOSE, URINE (UA) AUTO NEGATIVE (NEGATIVE); KETONE, URINE AUTO NEGATIVE (NEGATIVE); LEUKOCYTE ESTERASE, URINE AUTO 3+ (NEGATIVE); NITRITE, URINE AUTO POSITIVE (NEGATIVE); PROTEIN, URINE AUTO 2+ mg/dL (NEGATIVE); RBC, URINE AUTO 69 /HPF (0-3); SPECIFIC GRAVITY URINE AUTO 1.014 (1.002-1.035); SQUAMOUS EPITHELIAL CELL UR AU 3 /HPF (0-6); UROBILINOGEN, URINE AUTO 0.2 mg/dL (0.0-2.0); WBC, URINE AUTO TNTC /HPF (0-3)
== END ==
PROVIDERS: ATTEND Nurse Practitioner Family
DX: R30.0 Dysuria (principal)

== ENCOUNTER → 2019-01-06 | Outpatient (REF) | payer MEDICARE, OTHER ==
[~2019-01-06] MED LIST changes: +ACET1TAB55 PO; +DIVA250T67 PO; +FLOM0.4C39 PO; +LEVO50TA5 PO; +MACR100C43 PO; +MIRT1TAB PO; +VITA-144 PO; +VITMTA PO
[2019-01-06 10:26] LABS: BASO % 0.3 % (0.0-1.0); EOS % 0.3 % (0.0-3.0); HEMATOCRIT 32.2 % (36.0-47.0); HEMOGLOBIN 10.7 g/dl (12.0-15.5); LYMPH # 1.1 10^3/uL (1.5-4.5); MEAN CORPUSCULAR HEMOGLOBIN 33.8 pg (27.0-33.0); MEAN CORPUSCULAR HGB CONC 33.2 g/dl (32.0-36.5); MEAN CORPUSCULAR VOLUME 101.6 fl (80.0-96.0); MONO # 0.4 10^3/uL (0.0-0.8); NEUTROPHILS # 1.3 10^3/uL (1.8-7.7); RED BLOOD COUNT 3.17 10^6/uL (4.00-5.40); WHITE BLOOD COUNT 2.9 10^3/uL (4.0-10.0)
[2019-01-06 10:54] LABS: ALBUMIN 2.8 GM/DL (3.2-5.2); ALT/SGPT 63 U/L (12-78); BILIRUBIN,TOTAL 0.2 MG/DL (0.2-1.0); BLOOD UREA NITROGEN 31 MG/DL (7-18); CALCIUM LEVEL 8.5 MG/DL (8.8-10.2); CARBON DIOXIDE LEVEL 25 MEQ/L (21-32); CHLORIDE LEVEL 109 MEQ/L (98-107); CREATININE FOR GFR 0.76 MG/DL (0.55-1.30); GLOMERULAR FILTRATION RATE > 60.0 (>39); GLUCOSE, FASTING 75 MG/DL (70-100); SODIUM LEVEL 141 MEQ/L (136-145); TOTAL PROTEIN 5.3 GM/DL (6.4-8.2)
[2019-01-06 10:57] LABS: PLATELET COUNT, AUTOMATED 82 10^3/uL (150-450)
== END ==
PROVIDERS: ATTEND Psychiatry & Neurology Neurology
DX: G35 Multiple sclerosis (principal)

== ENCOUNTER → 2019-01-11 | Outpatient (REF) | payer MEDICARE, OTHER ==
[2019-01-11 09:26] LABS: HEMATOCRIT 31.2 % (36.0-47.0); HEMOGLOBIN 10.3 g/dl (12.0-15.5); MEAN CORPUSCULAR HEMOGLOBIN 33.7 pg (27.0-33.0); RED BLOOD COUNT 3.06 10^6/uL (4.00-5.40); WHITE BLOOD COUNT 4.3 10^3/uL (4.0-10.0)
[2019-01-11 10:03] LABS: PLATELET COUNT, AUTOMATED 69 10^3/uL (150-450)
== END ==
PROVIDERS: ATTEND Psychiatry & Neurology Neurology
DX: G35 Multiple sclerosis (principal)

== ENCOUNTER → 2019-01-12 | Outpatient (REF) | payer MEDICARE, OTHER ==
[~2019-01-12] MED LIST changes: -ACET1TAB55 PO; -DIVA250T67 PO; -FLOM0.4C39 PO; -LEVO50TA5 PO; -MACR100C43 PO; -MIRT1TAB PO; -VITA-144 PO; -VITMTA PO
[2019-01-12 22:51] LABS: APPEARANCE, URINE CLOUDY (CLEAR); BACTERIA, URINE AUTO 2+ (NEGATIVE); BILIRUBIN, URINE AUTO NEGATIVE (NEGATIVE); BLOOD, URINE BLOOD NEGATIVE (NEGATIVE); COLOR, URINE YELLOW (YELLOW); GLUCOSE, URINE (UA) AUTO NEGATIVE (NEGATIVE); KETONE, URINE AUTO TRACE mg/dL (NEGATIVE); LEUKOCYTE ESTERASE, URINE AUTO 3+ (NEGATIVE); MUCUS, URINE SMALL (NEGATIVE); NITRITE, URINE AUTO POSITIVE (NEGATIVE); PROTEIN, URINE AUTO NEGATIVE (NEGATIVE); RBC, URINE AUTO 8 /HPF (0-3); SPECIFIC GRAVITY URINE AUTO 1.016 (1.002-1.035); SQUAMOUS EPITHELIAL CELL UR AU 1 /HPF (0-6); UROBILINOGEN, URINE AUTO 0.2 mg/dL (0.0-2.0); WBC, URINE AUTO TNTC /HPF (0-3)
== END ==
LOC: M LAB 22:05
PROVIDERS: ATTEND Family Medicine
DX: R32 Unspecified urinary incontinence (principal)

== ENCOUNTER → 2019-01-18 | Outpatient (REF) | payer MEDICARE, OTHER ==
[~2019-01-18] MED LIST changes: +ACET1TAB55 PO; +DIVA250T67 PO; +FLOM0.4C39 PO; +LEVO50TA5 PO; +MACR100C43 PO; +MIRT1TAB PO; +VITA-144 PO; +VITMTA PO
[2019-01-18 09:40] LABS: HEMATOCRIT 34.2 % (36.0-47.0); HEMOGLOBIN 11.4 g/dl (12.0-15.5); MEAN CORPUSCULAR HGB CONC 33.3 g/dl (32.0-36.5); MEAN CORPUSCULAR VOLUME 104.9 fl (80.0-96.0); PLATELET COUNT, AUTOMATED 117 10^3/uL (150-450); RED BLOOD COUNT 3.26 10^6/uL (4.00-5.40); WHITE BLOOD COUNT 3.5 10^3/uL (4.0-10.0)
== END ==
PROVIDERS: ATTEND Nurse Practitioner Family
DX: G35 Multiple sclerosis (principal)

== ENCOUNTER → 2019-01-25 | Outpatient (REF) | payer MEDICARE, OTHER ==
[~2019-01-25] MED LIST changes: -ACET1TAB55 PO; -DIVA250T67 PO; -FLOM0.4C39 PO; -LEVO50TA5 PO; -MACR100C43 PO; -MIRT1TAB PO; -VITA-144 PO; -VITMTA PO
[2019-01-25 09:41] LABS: HEMATOCRIT 33.1 % (36.0-47.0); HEMOGLOBIN 10.9 g/dl (12.0-15.5); MEAN CORPUSCULAR HEMOGLOBIN 33.6 pg (27.0-33.0); MEAN CORPUSCULAR HGB CONC 32.9 g/dl (32.0-36.5); MEAN CORPUSCULAR VOLUME 102.2 fl (80.0-96.0); RED BLOOD COUNT 3.24 10^6/uL (4.00-5.40); WHITE BLOOD COUNT 4.2 10^3/uL (4.0-10.0)
[2019-01-25 10:02] LABS: PLATELET COUNT, AUTOMATED 95 10^3/uL (150-450)
== END ==
PROVIDERS: ATTEND Nurse Practitioner Family
DX: G35 Multiple sclerosis (principal)

== ENCOUNTER → 2019-02-01 | Outpatient (REF) | payer MEDICARE, OTHER ==
[2019-02-01 10:03] LABS: HEMATOCRIT 34.3 % (36.0-47.0); HEMOGLOBIN 11.3 g/dl (12.0-15.5); MEAN CORPUSCULAR HEMOGLOBIN 35.1 pg (27.0-33.0); MEAN CORPUSCULAR HGB CONC 32.9 g/dl (32.0-36.5); MEAN CORPUSCULAR VOLUME 106.5 fl (80.0-96.0); PLATELET COUNT, AUTOMATED 123 10^3/uL (150-450); RED BLOOD COUNT 3.22 10^6/uL (4.00-5.40); WHITE BLOOD COUNT 3.8 10^3/uL (4.0-10.0)
== END ==
PROVIDERS: ATTEND Nurse Practitioner Family
DX: G35 Multiple sclerosis (principal)

== ENCOUNTER → 2019-02-08 | Outpatient (REF) | payer MEDICARE, OTHER ==
[2019-02-08 09:40] LABS: HEMATOCRIT 35.8 % (36.0-47.0); HEMOGLOBIN 11.7 g/dl (12.0-15.5); MEAN CORPUSCULAR HEMOGLOBIN 33.4 pg (27.0-33.0); MEAN CORPUSCULAR HGB CONC 32.7 g/dl (32.0-36.5); MEAN CORPUSCULAR VOLUME 102.3 fl (80.0-96.0); PLATELET COUNT, AUTOMATED 114 10^3/uL (150-450); WHITE BLOOD COUNT 3.6 10^3/uL (4.0-10.0)
[2019-02-08 12:22] LABS: ALBUMIN 3.1 GM/DL (3.2-5.2); ALT/SGPT 19 U/L (12-78); BILIRUBIN,TOTAL 0.3 MG/DL (0.2-1.0); BLOOD UREA NITROGEN 29 MG/DL (7-18); CALCIUM LEVEL 8.3 MG/DL (8.8-10.2); CARBON DIOXIDE LEVEL 25 MEQ/L (21-32); CHLORIDE LEVEL 108 MEQ/L (98-107); CREATININE FOR GFR 0.87 MG/DL (0.55-1.30); FERRITIN 296 NG/ML (8-252); FREE T4 1.01 NG/DL (0.76-1.46); GLOMERULAR FILTRATION RATE > 60.0 (>39); GLUCOSE, FASTING 76 MG/DL (70-100); POTASSIUM SERUM 3.8 MEQ/L (3.5-5.1); SODIUM LEVEL 142 MEQ/L (136-145); TOTAL PROTEIN 6.6 GM/DL (6.4-8.2)
[2019-02-08 14:12] LABS: FOLATE 15.2 NG/ML; TOTAL 25(OH) VITAMIN D 45.7 NG/ML (30.0-100.0); VITAMIN B12 LEVEL 429 PG/ML
== END ==
PROVIDERS: ATTEND Nurse Practitioner Family
DX: E03.9 Hypothyroidism, unspecified (principal); R42 Dizziness and giddiness; D64.9 Anemia, unspecified; E55.9 Vitamin D deficiency, unspecified; Z79.899 Other long term (current) drug therapy

== ENCOUNTER → 2019-02-08 | Outpatient (CLI) | payer MEDICARE, OTHER ==
--- NOTE | 2019-02-17 08:50 | DEXA ---
AP SPINE L1 - L4 1.014 -1.5 0.2 LT FEMUR TOTAL 0.750 -2.0 -0.5 LT NECK 0.750 -2.1 -0.3 RT FEMUR TOTAL 0.670 -2.7 -1.2 RT NECK 0.661 -2.7 -1.0 TOTAL BODY TOTAL OTHER COMMENTS: There is low bone density of the spine. There is low bone density of the left hip. There is osteoporosis of the right hip. The increased density of the spine does represent a significant change. The decreased density of the left hip does represent a significant change. The decreased density of the right hip does represent a significant change. The density of the spine has increased 8.8% since the initial exam on 03/06/2009. The spine density has increased 2.7% since the most recent exam on 06/02/2011. The density of the left hip has increased 2.6% since the initial exam on 03/06/2009. The density of the left hip has decreased 3.1% since the most recent exam on 06/02/2011. The density of the right hip has increased 3.1% since the initial exam on 03/06/2009. The density of the right hip has decreased 3.7% since the most recent exam on 06/02/2011. FOLLOW-UP: Recommendation for the next bone density exam: 2 years. KEVIN
== END ==
LOC: M WHC 13:51
PROVIDERS: ATTEND Nurse Practitioner Family
DX: Z12.31 Encounter for screening mammogram for malignant neoplasm of breast (principal); Z78.0 Asymptomatic menopausal state; M85.89 Other specified disorders of bone density and structure, multiple sites

== ENCOUNTER → 2019-03-06 | Outpatient (REF) | payer MEDICARE, OTHER ==
[2019-03-06 19:55] LABS: APPEARANCE, URINE TURBID (CLEAR); BACTERIA, URINE AUTO 2+ (NEGATIVE); BILIRUBIN, URINE AUTO NEGATIVE (NEGATIVE); BLOOD, URINE BLOOD NEGATIVE (NEGATIVE); COLOR, URINE AMBER (YELLOW); GLUCOSE, URINE (UA) AUTO NEGATIVE (NEGATIVE); KETONE, URINE AUTO TRACE mg/dL (NEGATIVE); LEUKOCYTE ESTERASE, URINE AUTO 3+ (NEGATIVE); MUCUS, URINE SMALL (NEGATIVE); NITRITE, URINE AUTO POSITIVE (NEGATIVE); PROTEIN, URINE AUTO 1+ mg/dL (NEGATIVE); RBC, URINE AUTO 11 /HPF (0-3); SPECIFIC GRAVITY URINE AUTO 1.019 (1.002-1.035); SQUAMOUS EPITHELIAL CELL UR AU 5 /HPF (0-6); UROBILINOGEN, URINE AUTO 0.2 mg/dL (0.0-2.0); WBC, URINE AUTO TNTC /HPF (0-3)
== END ==
PROVIDERS: ATTEND Nurse Practitioner Family
DX: R32 Unspecified urinary incontinence (principal)

== ENCOUNTER → 2019-03-17 | Outpatient (CLI) | payer MEDICARE, OTHER ==
[~2019-03-17] MED LIST changes: +ACET1TAB55 PO; +DIVA250T67 PO; +FLOM0.4C39 PO; +LEVO50TA5 PO; +MACR100C43 PO; +MIRT1TAB PO; +VITA-144 PO; +VITMTA PO
--- NOTE | 2019-03-17 09:26 | REP ---
RENAL AND BLADDER ULTRASOUND: Real-time sonographic evaluation of the kidneys performed. Right kidney measures 9.6 x 4.4 x 4.5 cm and left kidney 9.2 x 4.1 x 4.8 cm. There are areas of cortical thinning. There is no hydronephrosis, renal mass or nephrolithiasis identified. Urinary bladder is collapsed around a Malone catheter. IMPRESSION: Bilateral cortical thinning. No hydronephrosis. Electronically Signed by Bart Smith MD 03/17/2019 10:14 A
== END ==
LOC: M RAD 07:43
PROVIDERS: ATTEND Nurse Practitioner Family
DX: N39.0 Urinary tract infection, site not specified (principal)

== ENCOUNTER → 2019-04-13 | Outpatient (REF) | payer MEDICARE, OTHER ==
[~2019-04-13] MED LIST changes: -ACET1TAB55 PO; -DIVA250T67 PO; -FLOM0.4C39 PO; -LEVO50TA5 PO; -MACR100C43 PO; -MIRT1TAB PO; -VITA-144 PO; -VITMTA PO
[2019-04-13 13:26] LABS: HEMATOCRIT 36.9 % (36.0-47.0); MEAN CORPUSCULAR HEMOGLOBIN 34.5 pg (27.0-33.0); MEAN CORPUSCULAR HGB CONC 32.5 g/dl (32.0-36.5); RED BLOOD COUNT 3.48 10^6/uL (4.00-5.40); WHITE BLOOD COUNT 2.9 10^3/uL (4.0-10.0)
[2019-04-13 13:37] LABS: PLATELET COUNT, AUTOMATED 97 10^3/uL (150-450)
[2019-04-13 13:41] LABS: FERRITIN 615 NG/ML (8-252); FREE T4 1.42 NG/DL (0.76-1.46); THYROID STIMULATING HORMONE 0.411 uIU/ML (0.358-3.740)
[2019-04-13 13:43] LABS: VITAMIN B12 LEVEL 427 PG/ML
[2019-04-13 13:45] LABS: FOLATE > 24.0 NG/ML
== END ==
PROVIDERS: ATTEND Nurse Practitioner Family
DX: D64.9 Anemia, unspecified (principal); E03.9 Hypothyroidism, unspecified

== ENCOUNTER → 2019-04-19 | Outpatient (REF) | payer MEDICARE, OTHER ==
[~2019-04-19] MED LIST changes: +ACET1TAB55 PO; +DIVA250T67 PO; +FLOM0.4C39 PO; +LEVO50TA5 PO; +MACR100C43 PO; +MIRT1TAB PO; +VITA-144 PO; +VITMTA PO
[2019-04-19 10:24] LABS: BASO % 0.2 % (0.0-1.0); EOS % 0.7 % (0.0-3.0); HEMOGLOBIN 12.2 g/dl (12.0-15.5); LYMPH # 1.8 10^3/uL (1.5-5.0); LYMPH % 32.3 % (24.0-44.0); MEAN CORPUSCULAR HEMOGLOBIN 33.9 pg (27.0-33.0); MEAN CORPUSCULAR VOLUME 102.8 fl (80.0-96.0); MONO # 0.6 10^3/uL (0.0-0.8); MONO % 9.9 % (0.0-5.0); NEUTROPHILS # 3.2 10^3/uL (1.5-8.5); NEUTROPHILS % 56.4 % (36.0-66.0); WHITE BLOOD COUNT 5.6 10^3/uL (4.0-10.0)
[2019-04-19 10:27] LABS: BASO % 0.2 % (0.0-1.0); EOS % 0.4 % (0.0-3.0); HEMATOCRIT 37.9 % (36.0-47.0); HEMOGLOBIN 12.5 g/dl (12.0-15.5); LYMPH # 1.6 10^3/uL (1.5-5.0); LYMPH % 30.9 % (24.0-44.0); MEAN CORPUSCULAR HEMOGLOBIN 34.7 pg (27.0-33.0); MEAN CORPUSCULAR VOLUME 105.3 fl (80.0-96.0); MONO # 0.5 10^3/uL (0.0-0.8); MONO % 10.2 % (0.0-5.0); NEUTROPHILS # 3.1 10^3/uL (1.5-8.5); NEUTROPHILS % 57.5 % (36.0-66.0); WHITE BLOOD COUNT 5.3 10^3/uL (4.0-10.0)
[2019-04-19 10:49] LABS: PLATELET COUNT, AUTOMATED 76 10^3/uL (150-450)
[2019-04-19 10:50] LABS: PLATELET COUNT, AUTOMATED 85 10^3/uL (150-450)
== END ==
PROVIDERS: ATTEND Nurse Practitioner Family
DX: D69.6 Thrombocytopenia, unspecified (principal)
CPT/HCPCS: 36415; 80164; 85025; 85049; 85055; G0463

== ENCOUNTER → 2019-04-20 | Outpatient (REF) | payer MEDICARE, OTHER | LOC: M SMT 17:14 | PROVIDERS: ATTEND Urology | DX: N31.9 Neuromuscular dysfunction of bladder, unspecified (principal); N39.0 Urinary tract infection, site not specified ==

== ENCOUNTER 2019-05-05 13:33 | Inpatient (IN) | payer MEDICARE, OTHER ==
[~2019-05-05] VITALS: Ht 165.1 cm; Wt 58.7 kg
[~2019-05-05 13:33] MED LIST changes: -ACET1TAB55 PO; -DIVA250T67 PO; -FLOM0.4C39 PO; -LEVO50TA5 PO; -MACR100C43 PO; -MIRT1TAB PO; -VITA-144 PO; -VITMTA PO
[2019-05-05] MEDS ORDERED: MACR100C43 PO (14:43)
[2019-05-05] MEDS ORDERED: VITA-144 PO (14:43)
[2019-05-05] MEDS ORDERED: VITMTA PO (14:43)
[2019-05-05] MEDS ORDERED: FLOM0.4C39 PO (14:43)
[2019-05-05] MEDS ORDERED: LEVO50TA5 PO (14:43)
[2019-05-05] MEDS ORDERED: ACET1TAB55 PO (14:43)
[2019-05-05] MEDS ORDERED: MIRT1TAB PO (14:43)
[2019-05-05] MEDS ORDERED: DIVA250T67 PO ×2 (14:43→18:17)
[2019-05-05 15:29] LABS: HEMATOCRIT 31.9 % (36.0-47.0); HEMOGLOBIN 10.8 g/dl (12.0-15.5); MEAN CORPUSCULAR HEMOGLOBIN 34.6 pg (27.0-33.0); MEAN CORPUSCULAR HGB CONC 33.9 g/dl (32.0-36.5); MEAN CORPUSCULAR VOLUME 102.2 fl (80.0-96.0); PLATELET COUNT, AUTOMATED 116 10^3/uL (150-450); RED BLOOD COUNT 3.12 10^6/uL (4.00-5.40); WHITE BLOOD COUNT 4.8 10^3/uL (4.0-10.0)
--- NOTE | 2019-05-05 15:48 | REP ---
Chest x-ray: Sitting AP view. History: Injury in a fall. Comparison study: July 08, 2017. Findings: EKG monitoring electrodes overlie the chest. The lungs are well inflated and clear. Heart size is normal. The thoracic aorta is tortuous and calcific. Pleural angles are sharp. There is diffuse osteopenia. Impression: No active disease. Electronically Signed by Quinten Chakraborty MD 05/05/2019 03:40 P
--- NOTE | 2019-05-05 15:57 | REP ---
CT brain without contrast: History: Vertigo. History of a fall. No comparison brain imaging. 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 The bony calvarium is intact on axial CT images. Visualized paranasal sinuses are clear. There is no evidence of intraorbital abnormality. On soft tissue window settings, there is moderate to marked generalized cerebral and cerebellar atrophy. There is concordant ventricular enlargement. There is a mild periventricular low density pattern consistent with small vessel changes. There is no evidence of acute infarction. No intracranial hemorrhage is seen. No mass or midline shift is seen. Impression: Moderate to marked generalized volume loss. Small vessel changes. Vascular calcification is noted. No acute intracranial abnormality. Electronically Signed by Quinten Chakraborty MD 05/05/2019 04:06 P
[2019-05-05 16:04] LABS: BLOOD UREA NITROGEN 21 MG/DL (7-18); CALCIUM LEVEL 8.7 MG/DL (8.8-10.2); CARBON DIOXIDE LEVEL 28 MEQ/L (21-32); CHLORIDE LEVEL 104 MEQ/L (98-107); CREATININE FOR GFR 0.76 MG/DL (0.55-1.30); GLOMERULAR FILTRATION RATE > 60.0 (>39); GLUCOSE, FASTING 82 MG/DL (70-100); POTASSIUM SERUM 4.1 MEQ/L (3.5-5.1); SODIUM LEVEL 140 MEQ/L (136-145); THYROID STIMULATING HORMONE 0.117 uIU/ML (0.358-3.740)
[2019-05-05] MEDS ORDERED: MAALOX 30 ML SUSP *UDC PO PRN (20:45)
[2019-05-05] MEDS ORDERED: ACETAMINOPHEN TAB 650MG DOSE (2X325MG) PO PRN (20:45)
[2019-05-05] MEDS ORDERED: MOM 30ML SUSPENSION UDC PO PRN (20:45)
--- NOTE | 2019-05-05 21:18 | HPEPDOC ---
General Date of Admission May 05, 2019 at 20:46 Date of Service: May 05, 2019 Primary Care Physician: MARITZA MACIAS NP Attending Physician: ROGERS ROLAND MD Chief Complaint The patient is a 69-year-old female admitted with a reason for visit of Progressive Gait Disorder. Source: Patient, RN/MD, RN notes reviewed, EMS notes reviewed Exam Limitations: Physical impairment, Mild cognitive slowing Timing/Duration: Day(s), Changing over time Severity: Moderate Associated Symptoms: Weakness, Dizziness, Mechanical fall History of Present Illness 69-year-old elderly female arrives at [facility] ED via EMS on stretcher from long-term care facility with complaints of several from mechanical fall secondary to feeling dizzy upon standing today and did not reach her wheelchair and time falling down and she tried to grasp it. She denies hitting her head and or loosing consciousness, and also reports feeling weakness that began approximately 2 days ago and since then has progressively become worse. She has significant medical history of multiple sclerosis and ambulates with walker, and has assistance with activities of daily living and housekeeping, left breast cancer with lumpectomy. Status post skin cancer removal of skin tumor, colono scopy, left elbow surgery, chronic UTI, chronic kidney disease, overactive bladder, osteoporosis, thrombocytopenia, insomnia and major depression, recurrent. The fall was unwitnessed. Thus, she had a CT had without IV contrast that is clear, no midline shift or acute intracranial hemorrhage. Chest x-ray, AP, lateral is normal. No acute disease process, osteopenia seen on film as minute finding. Due to patient history, progressing falls secondary to multiple sclerosis, and age should be admitted under medicine hospitalist services for ongoing evaluation and observation unit. Home Medications Scheduled Cholecalciferol (Vitamin D3) (Vitamin D3) 1,000 Unit Tablet, 1,000 UNIT PO DAILY, (Reported) Divalproex Sodium (Divalproex Sodium) 250 Mg Tablet.dr, 250 MG PO TID 0500/1100/1700/2300 Levothyroxine Sodium (Levothyroxine Sodium) 50 Mcg Tablet, 50 MCG PO QAM, (Reported) Mirtazapine (Mirtazapine) 7.5 Mg Tablet, 7.5 MG PO QHS, (Reported) Multivitamins (Thera M Plus Tablet) 1 Each Tablet, 1 TAB PO DAILY, (Reported) Nitrofurantoin Monohyd/M-Cryst (Macrobid 100 mg Capsule) 100 Mg Capsule, 100 MG PO QHS, (Reported) Peginterferon Beta-1A (Plegridy Pen) 125 Mcg/0.5 Ml Inj, 125 MCG SC Q2WK, (Reported) Tamsulosin HCl (Flomax) 0.4 Mg Capsule, 0.4 MG PO DAILY, (Reported) Scheduled PRN Acetaminophen (Acetaminophen) 325 Mg Tablet, 650 MG PO Q6H PRN for PAIN, (Reported) Allergies Coded Allergies: No Known Allergies (Verified Allergy, Unknown, 05/05/19) Past Medical History Medical History See HPI Surgical History Elbow surgery, left breast lumpectomy, skin cancer removal, and colonoscopy Family History Significant Family History: No pertinent family hx Social History * Smoker: Denies Alcohol: Denies Drugs: prescription drugs Recent Travel/Sick Contacts: Denies: Recent travel, Recent sick contacts Psychosocial History: Ronald SI and HI, Depression (Major depression) A-FIB/CHADSVASC A-FIB History Current/History of A-Fib/PAF?: No Review of Systems Constitutional: Reports: Malaise, Weakness, Fatigue, Weight Loss Eyes: Reports: Pain ENT: Denies: Head Aches, Ear Pain, Dysphagia, Sinus Congestion, Post Nasal Drip, Sore Throat, Epistaxis, Other Symptoms Skin: Reports: Dry (flaking) Pulmonary: Denies: Dyspnea, Cough, Pleuritic Chest Pain, Other Symptoms Cardiovascular: Reports: Lt Headedness; Denies: Chest Pain, Palpitations, Orthopnea, Paroxysmal Noc. Dyspnea, Edema, Other Symptoms Gastrointestinal: Denies: Nausea, Vomiting, Abdominal Pain, Diarrhea, Constipation, Melena, Hematochezia, Other Symptoms Genitourinary: Denies: Dysuria, Frequency, Incontinence, Hematuria, Retention, Other Symptoms Hematologic: Denies: Bruising, Bleeding Excessively, Petecchia, Purpura, Enlarged Lymph Nodes, Other Hematologic Endocrine: Denies: Polydipsia, Polyphagia, Polyuria, Heat Intolerance, Cold Intolerance, Other Endocrine Sx Musculoskeletal: Reports: Joint Pain, Spasms, Other Symptoms (bilateral leg weakness, unable to ambulate more than 3 steps without falling) Neurological: Reports: Weakness, Incoordination (falls a couple times in the last 30 days), Confusion, Other Symptoms (dizziness, ambulates with walker) Psych: Reports: Anxiety, Depression Physical Examination General Exam: Positive: Alert, Cooperative, Mild Distress (with not being able to return to the assisted living side.) Eye Exam: Positive: PERRLA, Conjunctiva & lids normal ENT Exam: Positive: Atraumatic, Mucous membr. moist/pink, Pharynx Normal, Nares Patent Neck Exam: Positive: Supple, +2 carotid pulse wo bruit Chest Exam: Positive: Clear to auscultation, Normal air movement Heart Exam: Positive: Rate Normal, Normal S1, Normal S2 Telemetry: Positive: No significant arrhythmia Abdomen Exam: Positive: Normal bowel sounds, Soft Extremity Exam: Positive: Normal pulses Skin Exam: Positive: Nl turgor and temperature Neuro Exam: Positive: Normal Speech, Other (decrease leg strength bilateral against pressure) Psych Exam: Positive: Anxiety, Memory Intact (not intact. There is memory deficit. Short term and long), Other (oriented to year and self. Flat effect, mood somber, poor insight and judgment, not understanding that she cannot go back to assisted living in a wheelchair keeps repeating if only for when the fall and this time. Has fallen minimally 4 times in 30 days stumbled between 4 and 5 times more within the same time. Counting altogether. 8-9, pulse in 30 days for those on the ground.) Vital Signs Vital Signs Date Time Temp Pulse Resp B/P (MAP) Pulse Ox O2 Delivery O2 Flow Rate FiO2 05/05/19 17:48 138 05/05/19 17:33 96 05/05/19 17:31 129/58 (81) 05/05/19 16:38 18 Room Air 05/05/19 14:01 97.4 Laboratory Data Labs 24H Laboratory Tests 2 05/05/19 00:00: Nucleated Red Blood Cells % (auto) 0.0 05/05/19 14:53: Anion Gap 8, Glomerular Filtration Rate > 60.0, Blood Urea Nitrogen 21H, Creatinine 0.76, Sodium Level 140, Potassium Level 4.1, Chloride Level 104, Carbon Dioxide Level 28, Calcium Level 8.7L, Thyroid Stimulating Hormone (TSH) 0.117L, Valproic Acid (Depakene) Level 104.0H CBC/BMP Vital Signs Date Time Temp Pulse Resp B/P (MAP) Pulse Ox O2 Delivery O2 Flow Rate FiO2 05/06/19 00:13 97.2 83 16 156/72 (100) 97 05/05/19 23:44 97.6 89 16 148/70 (96) 96 Room Air 05/05/19 21:24 97.1 82 16 138/76 (96) 95 Room Air 05/05/19 17:48 138 05/05/19 17:33 88 96 05/05/19 17:31 129/58 (81) 05/05/19 17:18 77 97 05/05/19 17:15 127/59 (81) 05/05/19 17:03 76 98 05/05/19 17:00 127/65 (85) 05/05/19 16:48 74 97 05/05/19 16:45 120/66 (84) 05/05/19 16:38 72 18 121/70 (87) 97 Room Air 05/05/19 16:38 119/63 (81) 05/05/19 16:33 73 98 05/05/19 16:18 74 97 05/05/19 16:03 76 98 05/05/19 15:48 76 96 05/05/19 15:33 80 97 05/05/19 15:18 83 95 05/05/19 15:17 121/70 (87) 05/05/19 15:03 76 95 05/05/19 14:48 77 20 95 Room Air 05/05/19 14:45 118/59 (78) 05/05/19 14:33 80 18 97 Room Air 05/05/19 14:30 113/58 (76) 05/05/19 14:18 80 18 94 Room Air 05/05/19 14:15 118/55 (76) 05/05/19 14:03 84 20 95 Room Air 05/05/19 14:01 97.4 05/05/19 14:00 114/52 (72) 05/05/19 13:48 90 97 05/05/19 13:47 Room Air 05/05/19 13:45 114/55 (74) 05/05/19 13:39 90 18 144/55 97 Room Air Laboratory Tests 05/05/19 14:53: Blood Urea Nitrogen 21H, Creatinine 0.76, Sodium Level 140, Potassium Level 4.1, Chloride Level 104, Carbon Dioxide Level 28, Calcium Level 8.7L, Anion Gap 8, Glomerular Filtration Rate > 60.0, Fasting Glucose 82, Thyroid Stimulating Hormone (TSH) 0.117L, Valproic Acid (Depakene) Level 104.0H Current Medications Medications (Trade) Dose Ordered Sig/Mamie Route PRN Reason Start Time Stop Time Status Last Admin Dose Admin Docusate Sodium (Colace) 100 mg BID PO 05/05/19 21:00 05/05/19 21:34 100 MG Mirtazapine (Remeron) 7.5 mg QHS PO 05/05/19 21:00 05/06/19 01:38 7.5 MG Laboratory Tests 05/05/19 00:00 Red Blood Count 3.12 L, Mean Corpuscular Volume 102.2 H, Mean Corpuscular Hemoglobin 34.6 H, Mean Corpuscular Hemoglobin Concent 33.9, Red Cell Distribution Width 14.6 H 05/05/19 14:53 Calcium Level 8.7 L Microbiology Vital Signs Date Time Temp Pulse Resp B/P (MAP) Pulse Ox O2 Delivery O2 Flow Rate FiO2 05/06/19 00:13 97.2 83 16 156/72 (100) 97 05/05/19 23:44 97.6 89 16 148/70 (96) 96 Room Air 05/05/19 21:24 97.1 82 16 138/76 (96) 95 Room Air 05/05/19 17:48 138 05/05/19 17:33 88 96 05/05/19 17:31 129/58 (81) 05/05/19 17:18 77 97 05/05/19 17:15 127/59 (81) 05/05/19 17:03 76 98 05/05/19 17:00 127/65 (85) 05/05/19 16:48 74 97 05/05/19 16:45 120/66 (84) 05/05/19 16:38 72 18 121/70 (87) 97 Room Air 05/05/19 16:38 119/63 (81) 05/05/19 16:33 73 98 05/05/19 16:18 74 97 05/05/19 16:03 76 98 05/05/19 15:48 76 96 05/05/19 15:33 80 97 05/05/19 15:18 83 95 05/05/19 15:17 121/70 (87) 05/05/19 15:03 76 95 05/05/19 14:48 77 20 95 Room Air 05/05/19 14:45 118/59 (78) 05/05/19 14:33 80 18 97 Room Air 05/05/19 14:30 113/58 (76) 05/05/19 14:18 80 18 94 Room Air 05/05/19 14:15 118/55 (76) 05/05/19 14:03 84 20 95 Room Air 05/05/19 14:01 97.4 05/05/19 14:00 114/52 (72) 05/05/19 13:48 90 97 05/05/19 13:47 Room Air 05/05/19 13:45 114/55 (74) 05/05/19 13:39 90 18 144/55 97 Room Air Laboratory Tests 05/05/19 14:53: Blood Urea Nitrogen 21H, Creatinine 0.76, Sodium Level 140, Potassium Level 4.1, Chloride Level 104, Carbon Dioxide Level 28, Calcium Level 8.7L, Anion Gap 8, Glomerular Filtration Rate > 60.0, Fasting Glucose 82, Thyroid Stimulating Hormone (TSH) 0.117L, Valproic Acid (Depakene) Level 104.0H Current Medications Medications (Trade) Dose Ordered Sig/Mamie Route PRN Reason Start Time Stop Time Status Last Admin Dose Admin Docusate Sodium (Colace) 100 mg BID PO 05/05/19 21:00 05/05/19 21:34 100 MG Mirtazapine (Remeron) 7.5 mg QHS PO 05/05/19 21:00 05/06/19 01:38 7.5 MG Assessment/Plan 69-year-old elderly female arrives at [facility] ED via EMS on stretcher from long-term care facility with complaints of several from mechanical fall secondary to feeling dizzy upon standing today. She does not know if she lost consciousness, and also reports feeling weakness that began approximately 2 days ago and since then has progressively become worse. Falls due to progressive gait related to weakness secondary to Multiple sclerosis- acute on chronic Plan PT/OT evaluate and treat Fall precautions Check labs, CBC: check blood culture, rule out infections, CT head is negative for acute neurological infarct Neurological checks every 46 as patient is not oriented 3, she thinks the month is May and she doesn't know the year. She can't remember the p resident. If you prompt her. And I remember the name of the hospital or city. Monitor vital signs, monitor I&O's Continue taking medication from [place] [facility] (pharmacy. We'll obtain medication as hospital does not carry) Pltegridy 125 g subcutaneous every 2 weeks. Thrombocytopeniachronic Monitor CBC Initiate bowel regimen Chronic kidney disease -chronic Check CMP monitoring creatinine Major depression, recurrentchronic Continue Depakote 2050 mg 3 times a day Chronic UTI.Chronic UA culture sensitivity pending Osteoporosischronic Check vitamin D/calcium. Labs Continue taking vitamin D3 1000 IUs daily Hyperlipidemiachronic Check fasting lipid panel Continue taking Hypothyroidismchronic Check TSH, T4: TSH, not therapeutic 0.117, currently on 50 g by mouth daily Overactive bladderchronic Continue taking Flomax 0.4 mg daily. Also used for multiple sclerosis Insomniachronic Continue taking Remeron 7.5 mg by mouth daily at bedtime Prognosis: Fair. DVT prophylaxis: Subcutaneous heparin 5000 IUs every 12 hours due to thrombocytopenia will account 112 Discharge: Pending possible placement Problems (1) Progressive gait disorder Status: Acute Response to Treatment: Uncontrolled, Progressing Discussed With: Pt and Family Services, Patient Problem Specific Plan: Monitor Clinically, Repeat Labs Plan / VTE VTE Prophylaxis Ordered?: Yes VTE Exclusion Mechanical Proph: Haroon Lower Ex DVT Plan Activity: Encourage Ambulation (with assistance only. 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 No molst or DNR, no DNI on file. Patient's FULL CODE) LORETTA LUNA May 05, 2019 21:17 ROGERS ROLAND MD May 07, 2019 07:19
[2019-05-05] MEDS: DOCUSATE SODIUM 100 MG CAP PO SCH (21:34)
[2019-05-06 00:13] VITALS: BP 156/72
[2019-05-06] MEDS: MIRTAZAPINE 7.5MG PER 1/2 TABLET PO SCH ×2 (01:38→20:17)
[2019-05-06] MEDS: LEVOTHYROXINE 50MCG TABLET (0.05MG) PO SCH (05:36)
[2019-05-06 06:00] VITALS: BP 129/80
[2019-05-06 07:03] LABS: HEMATOCRIT 33.4 % (36.0-47.0); HEMOGLOBIN 11.1 g/dl (12.0-15.5); MEAN CORPUSCULAR HEMOGLOBIN 34.7 pg (27.0-33.0); MEAN CORPUSCULAR HGB CONC 33.2 g/dl (32.0-36.5); MEAN CORPUSCULAR VOLUME 104.4 fl (80.0-96.0); PLATELET COUNT, AUTOMATED 114 10^3/uL (150-450); WHITE BLOOD COUNT 3.2 10^3/uL (4.0-10.0)
[2019-05-06 07:26] LABS: ALBUMIN 2.8 GM/DL (3.2-5.2); ALT/SGPT 25 U/L (12-78); BILIRUBIN,TOTAL 0.5 MG/DL (0.2-1.0); BLOOD UREA NITROGEN 18 MG/DL (7-18); CALCIUM LEVEL 8.8 MG/DL (8.8-10.2); CARBON DIOXIDE LEVEL 27 MEQ/L (21-32); CHLORIDE LEVEL 109 MEQ/L (98-107); CHOLESTEROL LEVEL 232 MG/DL (<200); CHOLESTEROL RISK RATIO 3.222 (<5); FREE T4 1.31 NG/DL (0.76-1.46); GLOMERULAR FILTRATION RATE > 60.0 (>39); GLUCOSE, FASTING 71 MG/DL (70-100); HDL CHOLESTEROL 72 MG/DL (>40); LDL CHOLESTEROL 143 MG/DL (<100); MAGNESIUM LEVEL 2.3 MG/DL (1.8-2.4); NON-HDL-C 160 MG/DL; POTASSIUM SERUM 3.8 MEQ/L (3.5-5.1); SODIUM LEVEL 144 MEQ/L (136-145); TOTAL PROTEIN 6.1 GM/DL (6.4-8.2); TRIGLYCERIDES LEVEL 87 MG/DL (<150)
[2019-05-06] MEDS: MULTIVITAMINS/MINERALS THERAP 1 TAB PO SCH (08:41)
[2019-05-06] MEDS: DIVALPROEX 250 MG TAB PO SCH ×3 (08:41→20:17)
[2019-05-06] MEDS: TAMSULOSIN 0.4 MG CAP PO SCH (08:41)
[2019-05-06] MEDS: VITAMIN D 1,000 INTERNATIONAL UNITS TABLET PO SCH (08:41)
[2019-05-06] MEDS: HEPARIN SOD (PORCINE) 5000 UNITS/ML VIAL SC SCH ×2 (08:41→20:17)
[2019-05-06] MEDS: DOCUSATE SODIUM 100 MG CAP PO SCH ×2 (08:41→20:17)
[2019-05-06 10:42] LABS: TOTAL 25(OH) VITAMIN D 39.1 NG/ML (30.0-100.0)
[2019-05-06 22:00] VITALS: BP 125/75
[2019-05-07 06:00] VITALS: BP 115/74
[2019-05-07] MEDS: LEVOTHYROXINE 50MCG TABLET (0.05MG) PO SCH (06:03)
[2019-05-07 07:59] LABS: BASO % 0.3 % (0.0-1.0); EOS # 0.1 10^3/uL (0.0-0.5); EOS % 2.1 % (0.0-3.0); HEMATOCRIT 34.6 % (36.0-47.0); HEMOGLOBIN 11.6 g/dl (12.0-15.5); LYMPH # 1.7 10^3/uL (1.5-5.0); LYMPH % 48.8 % (24.0-44.0); MEAN CORPUSCULAR HEMOGLOBIN 35.3 pg (27.0-33.0); MEAN CORPUSCULAR HGB CONC 33.5 g/dl (32.0-36.5); MEAN CORPUSCULAR VOLUME 105.2 fl (80.0-96.0); MONO # 0.4 10^3/uL (0.0-0.8); MONO % 11.2 % (0.0-5.0); NEUTROPHILS # 1.3 10^3/uL (1.5-8.5); NEUTROPHILS % 37.3 % (36.0-66.0); PLATELET COUNT, AUTOMATED 122 10^3/uL (150-450); RED BLOOD COUNT 3.29 10^6/uL (4.00-5.40); WHITE BLOOD COUNT 3.4 10^3/uL (4.0-10.0)
[2019-05-07 08:15] LABS: BLOOD UREA NITROGEN 23 MG/DL (7-18); CALCIUM LEVEL 8.5 MG/DL (8.8-10.2); CARBON DIOXIDE LEVEL 28 MEQ/L (21-32); CHLORIDE LEVEL 111 MEQ/L (98-107); CREATININE FOR GFR 0.72 MG/DL (0.55-1.30); GLOMERULAR FILTRATION RATE > 60.0 (>39); GLUCOSE, FASTING 78 MG/DL (70-100); MAGNESIUM LEVEL 2.3 MG/DL (1.8-2.4); POTASSIUM SERUM 3.6 MEQ/L (3.5-5.1); SODIUM LEVEL 144 MEQ/L (136-145)
--- NOTE | 2019-05-07 09:06 | IPNPDOC ---
Text Note Date of Service The patient was seen on 05/06/19. NOTE Subjective: Patient is a 69 year old female with a PMHx of Multiple Sclerosis, Thrombocytopenia, Insomnia, MDD, Left breast CA s/p lumpectomy, Skin CA s/p resection, CKD3, Overactive bladder, Osteoporosis, Recurrent falls who presented to the ER via EMS from [place] with complaints of mechanical fall and difficulty with walking. Patient was admitted to the hospitalist service for further evaluation and treatment. Patient was seen and examined at the bedside. She reported that she feels weak and has had difficulty with ambulation. She denied CP, SOB or palpitations. Denies N/V, abdominal pain, C/D. Objective: Vitals (See below) General: Lying in bed, no acute distress, comfortable, AAOx3 HEENT: NC, AT CVS: +S1S2 Lungs: Fair air entry b/l, -w/r/r Abdomen: Soft, ND, NT Extremities: - Edema, - Calf tenderness Neuro: 5/5 strength at upper / lower extremities bilaterally Assessment and Plan: Generalized weakness - likely 2/2 deconditioning - Clinically patient has reported that she has been experiencing progressive weakness and difficulty walking - No evidence of infection, Electrolytes are within normal limits - CXR negative - c/w PT / OT Multiple sclerosis - No evidence of infection - Currently no evidence of focal neurological weakness - Patient receives interferon as an outpatient Pancytopneia - Hg appears stable; no evidence of bleeding - Platelet count is stable; has been chronically low CKD3 - Currently kidney function appears within normal range Depression / Insomnia - c/w Mirtazapine Seizure disorder? - c/w Depakote Chronic UTI / Overactive bladder - Currently patient is on Tamsulosin - No symptoms of UTI Osteoporosis - c/w Vitamin D DLP - Currently not on medications Hypothyroidism - TSH suppressed, Free T4 within range - Will need to have lab work repeated in 2 weeks - c/w Levothyroxine DVT prophylaxis - c/w Heparin VS,Fishbone, I+O VS, Fishbone, I+O Laboratory Tests 05/07/19 07:34 Red Blood Count 3.29 L, Mean Corpuscular Volume 105.2 H, Mean Corpuscular Hemoglobin 35.3 H, Mean Corpuscular Hemoglobin Concent 33.5, Red Cell Distribution Width 14.6 H, Neutrophils (%) (Auto) 37.3, Lymphocytes (%) (Auto) 48.8 H, Monocytes (%) (Auto) 11.2 H, Eosinophils (%) (Auto) 2.1, Basophils (%) (Auto) 0.3, Neutrophils # (Auto) 1.3 L, Lymphocytes # (Auto) 1.7, Monocytes # (Auto) 0.4, Eosinophils # (Auto) 0.1, Basophils # (Auto) 0.0, Calcium Level 8.5 L Vital Signs Date Time Temp Pulse Resp B/P (MAP) Pulse Ox O2 Delivery O2 Flow Rate FiO2 05/07/19 06:00 97.1 75 15 115/74 (88) 98 05/05/19 23:44 Room Air I&O- Last 24 Hours up to 6 AM 05/07/19 06:00 Intake Total 570 ml Output Total 550 ml Balance 20 ml SMITHA MENEZES MD May 07, 2019 09:06
[2019-05-07] MEDS: DIVALPROEX 250 MG TAB PO SCH ×3 (09:59→20:36)
[2019-05-07] MEDS: VITAMIN D 1,000 INTERNATIONAL UNITS TABLET PO SCH (09:59)
[2019-05-07] MEDS: DOCUSATE SODIUM 100 MG CAP PO SCH ×2 (10:00→20:36)
[2019-05-07] MEDS: TAMSULOSIN 0.4 MG CAP PO SCH (10:00)
[2019-05-07] MEDS: MULTIVITAMINS/MINERALS THERAP 1 TAB PO SCH (10:00)
[2019-05-07] MEDS: HEPARIN SOD (PORCINE) 5000 UNITS/ML VIAL SC SCH ×2 (10:01→20:37)
--- NOTE | 2019-05-07 10:29 | IPNPDOC ---
Text Note Date of Service The patient was seen on 05/07/19. NOTE Subjective: Patient is a 69 year old female with a PMHx of Multiple Sclerosis, Thrombocytopenia, Insomnia, MDD, Left breast CA s/p lumpectomy, Skin CA s/p resection, CKD3, Overactive bladder, Osteoporosis, Recurrent falls who presented to the ER via EMS from [facility] with complaints of mechanical fall and difficulty with walking. Patient was admitted to the hospitalist service for further evaluation and treatment. Patient was seen and examined at the bedside. Patient has had no evidence overnight. She denies chest pain, shortness of breath or palpitations. She has been working with physical therapy yesterday morning, however, has not progressed well. Objective: Vitals (See below) General: Lying in bed, no acute distress, comfortable, AAOx3 HEENT: NC, AT CVS: +S1S2 Lungs: Fair air entry b/l, no appreciable wheezing, rhonchi or rales Abdomen: Soft, nondistended, without tenderness Extremities: - Edema, - Calf tenderness Neuro: Strength is symmetrical bilaterally upper and lower extremities; noted at 4-5/5 Assessment and Plan: Generalized weakness - likely 2/2 deconditioning - Clinically patient has reported that she has been experiencing progressive weakness and difficulty walking - No evidence of infection, Electrolytes are within normal limits - Will check urinalysis - CXR negative - c/w PT / OT; patient has requested physical therapy yesterday, however, she has not yet cleared - Based on her current limitations, it is likely that she will require transiti on to correction Multiple sclerosis - No evidence of infection - Currently no evidence of focal neurological weakness - Patient receives interferon as an outpatient Pancytopenia - Reviewing the patient's past medical record indicates that she's been experiencing leukopenia and anemia since 2006 - Hg appears stable; no evidence of bleeding - Platelet count is stable; has been chronically low since 2017 Depression / Insomnia - c/w Mirtazapine Seizure disorder? - c/w Depakote Chronic UTI / Overactive bladder - Currently patient is on Tamsulosin - Will check urinalysis today - straight catheter if required Osteoporosis - c/w Vitamin D DLP - Currently not on medications Hypothyroidism - TSH suppressed, Free T4 within range - Will need to have lab work repeated in 2 weeks - c/w Levothyroxine DVT prophylaxis - c/w Heparin Disposition: - Evaluate for possible infection / UTI VS,Fishbone, I+O VS, Fishbone, I+O Laboratory Tests 05/07/19 07:34 Red Blood Count 3.29 L, Mean Corpuscular Volume 105.2 H, Mean Corpuscular Hemoglobin 35.3 H, Mean Corpuscular Hemoglobin Concent 33.5, Red Cell Distribution Width 14.6 H, Neutrophils (%) (Auto) 37.3, Lymphocytes (%) (Auto) 48.8 H, Monocytes (%) (Auto) 11.2 H, Eosinophils (%) (Auto) 2.1, Basophils (%) (Auto) 0.3, Neutrophils # (Auto) 1.3 L, Lymphocytes # (Auto) 1.7, Monocytes # (Auto) 0.4, Eosinophils # (Auto) 0.1, Basophils # (Auto) 0.0, Calcium Level 8.5 L Vital Signs Date Time Temp Pulse Resp B/P (MAP) Pulse Ox O2 Delivery O2 Flow Rate FiO2 05/07/19 06:00 97.1 75 15 115/74 (88) 98 05/05/19 23:44 Room Air I&O- Last 24 Hours up to 6 AM 05/07/19 06:00 Intake Total 570 ml Output Total 550 ml Balance 20 ml SMITHA MENEZES MD May 07, 2019 10:29
[2019-05-07 14:00] VITALS: BP 122/70
[2019-05-07 17:47] LABS: APPEARANCE, URINE HAZY (CLEAR); BACTERIA, URINE AUTO 1+ (NEGATIVE); BILIRUBIN, URINE AUTO NEGATIVE (NEGATIVE); BLOOD, URINE BLOOD NEGATIVE (NEGATIVE); COLOR, URINE YELLOW (YELLOW); GLUCOSE, URINE (UA) AUTO NEGATIVE (NEGATIVE); KETONE, URINE AUTO NEGATIVE (NEGATIVE); LEUKOCYTE ESTERASE, URINE AUTO NEGATIVE (NEGATIVE); NITRITE, URINE AUTO NEGATIVE (NEGATIVE); PROTEIN, URINE AUTO NEGATIVE (NEGATIVE); RBC, URINE AUTO 3 /HPF (0-3); SPECIFIC GRAVITY URINE AUTO 1.009 (1.002-1.035); SQUAMOUS EPITHELIAL CELL UR AU 3 /HPF (0-6); UROBILINOGEN, URINE AUTO 0.2 mg/dL (0.0-2.0); WBC, URINE AUTO 3 /HPF (0-3)
[2019-05-07] MEDS: MIRTAZAPINE 7.5MG PER 1/2 TABLET PO SCH (20:36)
[2019-05-07 22:00] VITALS: BP 121/70
[2019-05-08 06:00] VITALS: BP 118/68
[2019-05-08] MEDS: LEVOTHYROXINE 50MCG TABLET (0.05MG) PO SCH (06:12)
[2019-05-08 07:44] LABS: EOS # 0.1 10^3/uL (0.0-0.5); EOS % 1.6 % (0.0-3.0); HEMATOCRIT 31.4 % (36.0-47.0); HEMOGLOBIN 10.6 g/dl (12.0-15.5); LYMPH # 2.1 10^3/uL (1.5-5.0); LYMPH % 56.4 % (24.0-44.0); MEAN CORPUSCULAR HEMOGLOBIN 34.5 pg (27.0-33.0); MEAN CORPUSCULAR HGB CONC 33.8 g/dl (32.0-36.5); MEAN CORPUSCULAR VOLUME 102.3 fl (80.0-96.0); MONO # 0.3 10^3/uL (0.0-0.8); MONO % 8.6 % (0.0-5.0); NEUTROPHILS # 1.2 10^3/uL (1.5-8.5); NEUTROPHILS % 33.1 % (36.0-66.0); PLATELET COUNT, AUTOMATED 137 10^3/uL (150-450); RED BLOOD COUNT 3.07 10^6/uL (4.00-5.40); WHITE BLOOD COUNT 3.7 10^3/uL (4.0-10.0)
[2019-05-08 08:14] LABS: BLOOD UREA NITROGEN 31 MG/DL (7-18); CALCIUM LEVEL 8.3 MG/DL (8.8-10.2); CARBON DIOXIDE LEVEL 28 MEQ/L (21-32); CHLORIDE LEVEL 110 MEQ/L (98-107); CREATININE FOR GFR 0.71 MG/DL (0.55-1.30); GLOMERULAR FILTRATION RATE > 60.0 (>39); GLUCOSE, FASTING 80 MG/DL (70-100); SODIUM LEVEL 144 MEQ/L (136-145)
[2019-05-08] MEDS: DOCUSATE SODIUM 100 MG CAP PO SCH ×2 (09:58→21:00)
[2019-05-08] MEDS: TAMSULOSIN 0.4 MG CAP PO SCH (09:58)
[2019-05-08] MEDS: MULTIVITAMINS/MINERALS THERAP 1 TAB PO SCH (09:59)
[2019-05-08] MEDS: VITAMIN D 1,000 INTERNATIONAL UNITS TABLET PO SCH (09:59)
[2019-05-08] MEDS: DIVALPROEX 250 MG TAB PO SCH ×3 (09:59→21:00)
[2019-05-08] MEDS: HEPARIN SOD (PORCINE) 5000 UNITS/ML VIAL SC SCH ×2 (10:00→21:00)
--- NOTE | 2019-05-08 12:29 | IPNPDOC ---
Text Note Date of Service The patient was seen on 05/08/19. NOTE Subjective: Patient is a 69 year old female with a PMHx of Multiple Sclerosis, Thrombocytopenia, Insomnia, MDD, Left breast CA s/p lumpectomy, Skin CA s/p resection, CKD3, Overactive bladder, Osteoporosis, Recurrent falls who presented to the ER via EMS from [place] with complaints of mechanical fall and difficulty with walking. Patient was admitted to the hospitalist service for further evaluation and treatment. Patient was seen and examined at the bedside. Patient has no complaints. She denies chest pain, shortness of breath or palpitations. Denies nausea, abdominal pain or diarrhea. Has not worked with physical therapy yesterday, however, will continue with physical therapy today. Objective: Vitals (See below) General: Lying in bed, no acute distress, comfortable, AAOx3 HEENT: NC, AT CVS: +S1S2 Lungs: Fair air entry b/l, does not appear to be any auscultated rhonchi, rales or wheezing Abdomen: Remains soft without distention or tenderness Extremities: No evidence of lower extremity edema, - Calf tenderness Assessment and Plan: Generalized weakness - likely 2/2 deconditioning - Clinically patient has reported that she has been experiencing progressive weakness and difficulty walking - No evidence of infection, electrolytes are within normal limits - UA is without any infection - CXR negative - Will continue with physical therapy and occupational therapy, is likely that the patient will require correction moving forward; Multiple sclerosis - No evidence of infection - Currently no evidence of focal neurological weakness - Patient receives interferon as an outpatient Pancytopenia - Reviewing the patient's past medical record indicates that she's been experiencing leukopenia and anemia since 2006 - Hg appears stable; no evidence of bleeding - Platelet count is stable; has been chronically low since 2017 Depression / Insomnia - c/w Mirtazapine Seizure disorder? - c/w Depakote Chronic UTI / Overactive bladder - Currently patient is on Tamsulosin - UA negative Osteoporosis - c/w Vitamin D DLP - Currently not on medications Hypothyroidism - TSH suppressed, Free T4 within range - Will need to have lab work repeated in 2 weeks - c/w Levothyroxine DVT prophylaxis - c/w Heparin Disposition: - Will transition to ALC status VS,Fishbone, I+O VS, Fishbone, I+O Laboratory Tests 05/08/19 07:24 Red Blood Count 3.07 L, Mean Corpuscular Volume 102.3 H, Mean Corpuscular Hemoglobin 34.5 H, Mean Corpuscular Hemoglobin Concent 33.8, Red Cell Distribution Width 14.6 H, Neutrophils (%) (Auto) 33.1 L, Lymphocytes (%) (Auto) 56.4 H, Monocytes (%) (Auto) 8.6 H, Eosinophils (%) (Auto) 1.6, Basophils (%) (Auto) 0.0, Neutrophils # (Auto) 1.2 L, Lymphocytes # (Auto) 2.1, Monocytes # (Auto) 0.3, Eosinophils # (Auto) 0.1, Basophils # (Auto) 0.0, Calcium Level 8.3 L Vital Signs Date Time Temp Pulse Resp B/P (MAP) Pulse Ox O2 Delivery O2 Flow Rate FiO2 05/08/19 06:00 98.6 73 16 118/68 (85) 9 05/05/19 23:44 Room Air I&O- Last 24 Hours up to 6 AM 05/08/19 06:00 Intake Total 680 ml Output Total 380 ml Balance 300 ml SMITHA MENEZES MD May 08, 2019 12:29
[2019-05-08 14:00] VITALS: BP 113/68
[2019-05-08] MEDS: MIRTAZAPINE 7.5MG PER 1/2 TABLET PO SCH (21:00)
[2019-05-08 22:00] VITALS: BP 122/71
[2019-05-09] MEDS: LEVOTHYROXINE 50MCG TABLET (0.05MG) PO SCH (05:55)
[2019-05-09 06:00] VITALS: BP 114/68
[2019-05-09] MEDS: DOCUSATE SODIUM 100 MG CAP PO SCH (10:20)
[2019-05-09] MEDS: MULTIVITAMINS/MINERALS THERAP 1 TAB PO SCH (10:20)
[2019-05-09] MEDS: DIVALPROEX 250 MG TAB PO SCH (10:20)
[2019-05-09] MEDS: TAMSULOSIN 0.4 MG CAP PO SCH (10:20)
[2019-05-09] MEDS: HEPARIN SOD (PORCINE) 5000 UNITS/ML VIAL SC SCH (10:21)
[2019-05-09] MEDS: VITAMIN D 1,000 INTERNATIONAL UNITS TABLET PO SCH (10:21)
--- NOTE | 2019-05-09 12:07 | DS.PDOC ---
Discharge Summary General Date of Admission May 05, 2019 at 20:46 Date of Discharge 05/09/2019 Discharge Summary PROCEDURES PERFORMED DURING STAY: [None]. ADMITTING DIAGNOSES / DISCHARGE DIAGNOSES: Generalized weakness - likely 2/2 deconditioning Multiple sclerosis Pancytopenia Depression / Insomnia Seizure disorder? Chronic UTI / Overactive bladder Osteoporosis DLP Hypothyroidism DVT prophylaxis COMPLICATIONS/CHIEF COMPLAINT: Difficulty with ambulation HISTORY OF PRESENT ILLNESS: Patient is a 69 year old female with a PMHx of Multiple Sclerosis, Thrombocytopenia, Insomnia, MDD, Left breast CA s/p lumpectomy, Skin CA s/p resection, CKD3, Overactive bladder, Osteoporosis, Recurrent falls who presented to the ER via EMS from [facility] with complaints of mechanical f all and difficulty with walking. Patient was admitted to the hospitalist service for further evaluation and treatment. HOSPITAL COURSE: Generalized weakness - likely 2/2 deconditioning - Clinically patient has reported that she has been experiencing progressive weakness and difficulty walking - No evidence of infection, electrolytes are within normal limits - UA is without any infection - CXR negative - Patient will be transition to [facility] for continued physical therapy and rehabilitation Multiple sclerosis - No evidence of infection - Currently no evidence of focal neurological weakness - Patient receives interferon as an outpatient Pancytopenia - Reviewing the patient's past medical record indicates that she's been experiencing leukopenia and anemia since 2006 - Hg appears stable; no evidence of bleeding - Platelet count is stable; has been chronically low since 2017 Depression / Insomnia - c/w Mirtazapine Seizure disorder? - c/w Depakote Chronic UTI / Overactive bladder - Currently patient is on Tamsulosin - UA negative Osteoporosis - c/w Vitamin D DLP - Currently not on medications Hypothyroidism - TSH suppressed, Free T4 within range - Will need to have lab work repeated in 2 weeks - c/w Levothyroxine DVT prophylaxis - c/w Heparin DISCHARGE MEDICATIONS: Please see below. ALLERGIES: Please see below. PHYSICAL EXAMINATION ON DISCHARGE: Vitals (See below) General: Lying in bed, no acute distress, comfortable, AAOx3 HEENT: NC, AT CVS: +S1S2 Lungs: Fair air entry b/l, -wheezing/rhonchi/crackles Abdomen: Soft, without distension / tenderness Extremities: - LE edema, - Calf tenderness LABORATORY DATA: Please see below. ACTIVITY: [As tolerated]. DISCHARGE PLAN: Follow up with Lisa Reza within 7 days Remain compliant with treatment plan and medications Return to the ER if you experience any problems DISPOSITION: [facility] DISCHARGE CONDITION: [Stable]. TIME SPENT ON DISCHARGE: 28 minutes Vital Signs/I&Os Vital Signs Date Time Temp Pulse Resp B/P (MAP) Pulse Ox O2 Delivery O2 Flow Rate FiO2 05/09/19 06:00 98.1 80 16 114/68 (83) 94 05/05/19 23:44 Room Air I&O- Last 24 Hours up to 6 AM 05/09/19 06:00 Intake Total 1720 ml Output Total 350 ml Balance 1370 ml Discharge Medications Scheduled Cholecalciferol (Vitamin D3) (Vitamin D3) 1,000 Unit Tablet, 1,000 UNIT PO DAILY, (Reported) Divalproex Sodium (Divalproex Sodium) 250 Mg Tablet.dr, 250 MG PO TID 0500/1100/1700/2300 Levothyroxine Sodium (Levothyroxine Sodium) 50 Mcg Tablet, 50 MCG PO QAM, (Reported) Mirtazapine (Mirtazapine) 7.5 Mg Tablet, 7.5 MG PO QHS, (Reported) Multivitamins (Thera M Plus Tablet) 1 Each Tablet, 1 TAB PO DAILY, (Reported) Peginterferon Beta-1A (Plegridy Pen) 125 Mcg/0.5 Ml Inj, 125 MCG SC Q2WK, (Reported) Tamsulosin HCl (Flomax) 0.4 Mg Capsule, 0.4 MG PO DAILY, (Reported) Scheduled PRN Acetaminophen (Acetaminophen) 325 Mg Tablet, 650 MG PO Q6H PRN for PAIN, (Reported) Allergies Coded Allergies: No Known Allergies (Verified Allergy, Unknown, 05/05/19) SMITHA MENEZES MD May 09, 2019 12:07
== END 2019-05-09 13:07 | DRG 59 ==
LOC: EDBD 13:33 → M ED 13:33 → M ED INP 20:46 → M MSPAV 05-06 00:13
PROVIDERS: ADMIT Internal Medicine; ATTEND Internal Medicine
DX: G35 Multiple sclerosis (principal); D61.818 Other pancytopenia; N39.0 Urinary tract infection, site not specified; E03.9 Hypothyroidism, unspecified; F32.9 Major depressive disorder, single episode, unspecified; G47.00 Insomnia, unspecified; M81.0 Age-related osteoporosis without current pathological fracture; G40.909 Epilepsy, unspecified, not intractable, without status epilepticus; Z85.3 Personal history of malignant neoplasm of breast; D69.6 Thrombocytopenia, unspecified; Z85.828 Personal history of other malignant neoplasm of skin; N18.3 Chronic kidney disease, stage 3 (moderate); R29.6 Repeated falls; Z79.899 Other long term (current) drug therapy; E78.5 Hyperlipidemia, unspecified

== ENCOUNTER → 2019-05-24 | Outpatient (REF) ==
[~2019-05-24] MED LIST changes: +ACET1TAB55 PO; +DIVA250T67 PO; +FLOM0.4C39 PO; +LEVO50TA5 PO; +MACR100C43 PO; +MIRT1TAB PO; +VITA-144 PO; +VITMTA PO
[2019-05-24 09:04] LABS: HEMOGLOBIN 10.7 g/dl (12.0-15.5); MEAN CORPUSCULAR HEMOGLOBIN 34.6 pg (27.0-33.0); MEAN CORPUSCULAR HGB CONC 33.4 g/dl (32.0-36.5); MEAN CORPUSCULAR VOLUME 103.6 fl (80.0-96.0); PLATELET COUNT, AUTOMATED 182 10^3/uL (150-450); RED BLOOD COUNT 3.09 10^6/uL (4.00-5.40); WHITE BLOOD COUNT 3.5 10^3/uL (4.0-10.0)
[2019-05-24 09:24] LABS: BLOOD UREA NITROGEN 27 MG/DL (7-18); CALCIUM LEVEL 9.2 MG/DL (8.8-10.2); CARBON DIOXIDE LEVEL 29 MEQ/L (21-32); CHLORIDE LEVEL 109 MEQ/L (98-107); CREATININE FOR GFR 0.74 MG/DL (0.55-1.30); GLOMERULAR FILTRATION RATE > 60.0 (>39); GLUCOSE, FASTING 76 MG/DL (70-100); POTASSIUM SERUM 4.7 MEQ/L (3.5-5.1); SODIUM LEVEL 143 MEQ/L (136-145)
== END ==
PROVIDERS: ATTEND Family Medicine
DX: G35 Multiple sclerosis (principal)

== ENCOUNTER → 2019-06-15 | Outpatient (REF) ==
[2019-06-15 10:07] LABS: HEMATOCRIT 35.1 % (36.0-47.0); HEMOGLOBIN 11.6 g/dl (12.0-15.5); MEAN CORPUSCULAR HEMOGLOBIN 34.3 pg (27.0-33.0); MEAN CORPUSCULAR VOLUME 103.8 fl (80.0-96.0); PLATELET COUNT, AUTOMATED 138 10^3/uL (150-450); RED BLOOD COUNT 3.38 10^6/uL (4.00-5.40); WHITE BLOOD COUNT 3.8 10^3/uL (4.0-10.0)
[2019-06-15 10:23] LABS: BLOOD UREA NITROGEN 27 MG/DL (7-18); CALCIUM LEVEL 8.7 MG/DL (8.8-10.2); CARBON DIOXIDE LEVEL 28 MEQ/L (21-32); CHLORIDE LEVEL 107 MEQ/L (98-107); GLOMERULAR FILTRATION RATE > 60.0 (>39); GLUCOSE, FASTING 91 MG/DL (70-100); POTASSIUM SERUM 3.7 MEQ/L (3.5-5.1); SODIUM LEVEL 142 MEQ/L (136-145)
== END ==
PROVIDERS: ATTEND Family Medicine
DX: G35 Multiple sclerosis (principal)

== ENCOUNTER → 2019-07-13 | Outpatient (REF) ==
[2019-07-13 09:07] LABS: HEMATOCRIT 35.6 % (36.0-47.0); HEMOGLOBIN 11.8 g/dl (12.0-15.5); MEAN CORPUSCULAR HEMOGLOBIN 33.3 pg (27.0-33.0); MEAN CORPUSCULAR HGB CONC 33.1 g/dl (32.0-36.5); MEAN CORPUSCULAR VOLUME 100.6 fl (80.0-96.0); RED BLOOD COUNT 3.54 10^6/uL (4.00-5.40); WHITE BLOOD COUNT 2.4 10^3/uL (4.0-10.0)
[2019-07-13 09:36] LABS: BLOOD UREA NITROGEN 19 MG/DL (7-18); CALCIUM LEVEL 8.3 MG/DL (8.8-10.2); CARBON DIOXIDE LEVEL 30 MEQ/L (21-32); CHLORIDE LEVEL 107 MEQ/L (98-107); CREATININE FOR GFR 0.62 MG/DL (0.55-1.30); GLOMERULAR FILTRATION RATE > 60.0 (>39); GLUCOSE, FASTING 80 MG/DL (70-100); POTASSIUM SERUM 3.7 MEQ/L (3.5-5.1); SODIUM LEVEL 142 MEQ/L (136-145)
[2019-07-13 10:06] LABS: PLATELET COUNT, AUTOMATED 54 10^3/uL (150-450)
== END ==
PROVIDERS: ATTEND Family Medicine
DX: G35 Multiple sclerosis (principal)

== ENCOUNTER → 2019-08-17 | Outpatient (REF) ==
[2019-08-17 09:58] LABS: HEMATOCRIT 38.1 % (36.0-47.0); HEMOGLOBIN 12.3 g/dl (12.0-15.5); MEAN CORPUSCULAR HEMOGLOBIN 32.3 pg (27.0-33.0); MEAN CORPUSCULAR HGB CONC 32.3 g/dl (32.0-36.5); PLATELET COUNT, AUTOMATED 107 10^3/uL (150-450); RED BLOOD COUNT 3.81 10^6/uL (4.00-5.40); WHITE BLOOD COUNT 3.7 10^3/uL (4.0-10.0)
[2019-08-17 10:06] LABS: BLOOD UREA NITROGEN 27 MG/DL (7-18); CALCIUM LEVEL 8.6 MG/DL (8.8-10.2); CARBON DIOXIDE LEVEL 28 MEQ/L (21-32); CHLORIDE LEVEL 104 MEQ/L (98-107); CREATININE FOR GFR 0.61 MG/DL (0.55-1.30); GLOMERULAR FILTRATION RATE > 60.0 (>39); GLUCOSE, FASTING 68 MG/DL (70-100); POTASSIUM SERUM 4.5 MEQ/L (3.5-5.1); SODIUM LEVEL 139 MEQ/L (136-145)
== END ==
PROVIDERS: ATTEND Family Medicine
DX: E03.9 Hypothyroidism, unspecified (principal)

== ENCOUNTER → 2019-12-12 | Outpatient (REF) ==
[2019-12-12 11:24] LABS: HEMOGLOBIN 12.1 g/dl (12.0-15.5); MEAN CORPUSCULAR HEMOGLOBIN 32.1 pg (27.0-33.0); MEAN CORPUSCULAR HGB CONC 32.7 g/dl (32.0-36.5); MEAN CORPUSCULAR VOLUME 98.1 fl (80.0-96.0); PLATELET COUNT, AUTOMATED 158 10^3/uL (150-450); RED BLOOD COUNT 3.77 10^6/uL (4.00-5.40); WHITE BLOOD COUNT 6.2 10^3/uL (4.0-10.0)
[2019-12-12 12:09] LABS: BLOOD UREA NITROGEN 25 MG/DL (7-18); CALCIUM LEVEL 9.3 MG/DL (8.8-10.2); CARBON DIOXIDE LEVEL 32 MEQ/L (21-32); CHLORIDE LEVEL 97 MEQ/L (98-107); CREATININE FOR GFR 0.81 MG/DL (0.55-1.30); GLOMERULAR FILTRATION RATE > 60.0 (>39); GLUCOSE, FASTING 98 MG/DL (70-100); POTASSIUM SERUM 4.1 MEQ/L (3.5-5.1); SODIUM LEVEL 138 MEQ/L (136-145)
== END ==
PROVIDERS: ATTEND Family Medicine
DX: G35 Multiple sclerosis (principal)

== ENCOUNTER → 2019-12-13 | Outpatient (REF) | payer MEDICARE, OTHER ==
[2019-12-13 12:27] LABS: ALBUMIN 2.6 GM/DL (3.2-5.2); ALT/SGPT 11 U/L (12-78); BILIRUBIN,TOTAL 0.4 MG/DL (0.2-1.0); BLOOD UREA NITROGEN 25 MG/DL (7-18); C REACTIVE PROTEIN QUANTITATIV 8.86 MG/DL (0.00-0.30); CALCIUM LEVEL 9.5 MG/DL (8.8-10.2); CARBON DIOXIDE LEVEL 30 MEQ/L (21-32); CHLORIDE LEVEL 94 MEQ/L (98-107); CREATININE FOR GFR 0.82 MG/DL (0.55-1.30); GLOMERULAR FILTRATION RATE > 60.0 (>39); GLUCOSE, FASTING 73 MG/DL (70-100); POTASSIUM SERUM 4.6 MEQ/L (3.5-5.1); SODIUM LEVEL 134 MEQ/L (136-145); TOTAL PROTEIN 6.8 GM/DL (6.4-8.2)
[2019-12-13 12:30] LABS: CA19-9 TUMOR MARKER,CARBOHYDRA 9.6 U/ML (<35.0)
--- NOTE | 2019-12-13 15:46 | REPPI ---
CHEST: REASON FOR EXAM: Weight loss. COMPARISON: 05/05/2019 The technique utilized in obtaining the radiograph has magnified the cardiac silhouette and accentuated the interstitial markings. FINDINGS: The superior mediastinal structures are midline. The cardiac silhouette is unremarkable in size, shape, and position. The diaphragmatic surfaces of the lungs are regular, and the costophrenic angles are clear. The pulmonary conway are clear. The imaged osseous structures are intact. IMPRESSION: There is no acute cardiopulmonary disease. Electronically Signed by Tim Stover DO 12/13/2019 04:23 P
== END ==
PROVIDERS: ATTEND Family Medicine
DX: R63.4 Abnormal weight loss (principal); E03.9 Hypothyroidism, unspecified; G35 Multiple sclerosis; Z85.3 Personal history of malignant neoplasm of breast; Z85.828 Personal history of other malignant neoplasm of skin

== ENCOUNTER → 2019-12-26 | Outpatient (REF) | PROVIDERS: ATTEND Internal Medicine | DX: Z03.818 Encounter for observation for suspected exposure to other biological agents ruled out (principal) ==

== ENCOUNTER → 2020-01-31 | Outpatient (REF) ==
[2020-01-31 09:16] LABS: BASO # 0.1 10^3/uL (0.0-0.2); BASO % 0.6 % (0.0-1.0); EOS % 0.4 % (0.0-3.0); HEMATOCRIT 39.4 % (36.0-47.0); HEMOGLOBIN 12.3 g/dl (12.0-15.5); LYMPH # 2.1 10^3/uL (1.5-5.0); LYMPH % 24.5 % (24.0-44.0); MEAN CORPUSCULAR HEMOGLOBIN 32.5 pg (27.0-33.0); MEAN CORPUSCULAR HGB CONC 31.2 g/dl (32.0-36.5); MONO # 0.5 10^3/uL (0.0-0.8); MONO % 5.6 % (0.0-5.0); NEUTROPHILS # 5.6 10^3/uL (1.5-8.5); NEUTROPHILS % 64.8 % (36.0-66.0); PLATELET COUNT, AUTOMATED 371 10^3/uL (150-450); RED BLOOD COUNT 3.79 10^6/uL (4.00-5.40); WHITE BLOOD COUNT 8.6 10^3/uL (4.0-10.0)
[2020-01-31 09:38] LABS: ALBUMIN 2.8 GM/DL (3.2-5.2); ALT/SGPT 34 U/L (12-78); BILIRUBIN,TOTAL 0.2 MG/DL (0.2-1.0); BLOOD UREA NITROGEN 41 MG/DL (7-18); CALCIUM LEVEL 8.9 MG/DL (8.8-10.2); CARBON DIOXIDE LEVEL 24 MEQ/L (21-32); CHLORIDE LEVEL 109 MEQ/L (98-107); CREATININE FOR GFR 0.75 MG/DL (0.55-1.30); GLOMERULAR FILTRATION RATE > 60.0 (>39); GLUCOSE, FASTING 86 MG/DL (70-100); POTASSIUM SERUM 3.9 MEQ/L (3.5-5.1); SODIUM LEVEL 142 MEQ/L (136-145); TOTAL PROTEIN 6.7 GM/DL (6.4-8.2)
== END ==
PROVIDERS: ATTEND Family Medicine
DX: G35 Multiple sclerosis (principal)

== ENCOUNTER → 2020-02-07 | Outpatient (REF) | payer MEDICARE, OTHER ==
[2020-02-07 12:13] LABS: BLOOD UREA NITROGEN 34 MG/DL (7-18); CARBON DIOXIDE LEVEL 24 MEQ/L (21-32); CHLORIDE LEVEL 108 MEQ/L (98-107); CREATININE FOR GFR 0.73 MG/DL (0.55-1.30); GLOMERULAR FILTRATION RATE > 60.0 (>39); GLUCOSE, FASTING 76 MG/DL (70-100); POTASSIUM SERUM 3.9 MEQ/L (3.5-5.1); SODIUM LEVEL 141 MEQ/L (136-145)
== END ==
PROVIDERS: ATTEND Family Medicine
DX: E03.9 Hypothyroidism, unspecified (principal)

== ENCOUNTER → 2020-02-14 | Outpatient (REF) | payer MEDICARE, OTHER ==
[2020-02-14 12:53] LABS: HEMATOCRIT 36.2 % (36.0-47.0); HEMOGLOBIN 11.6 g/dl (12.0-15.5); MEAN CORPUSCULAR HEMOGLOBIN 32.8 pg (27.0-33.0); MEAN CORPUSCULAR VOLUME 102.3 fl (80.0-96.0); PLATELET COUNT, AUTOMATED 239 10^3/uL (150-450); RED BLOOD COUNT 3.54 10^6/uL (4.00-5.40); WHITE BLOOD COUNT 5.2 10^3/uL (4.0-10.0)
[2020-02-14 13:36] LABS: BLOOD UREA NITROGEN 37 MG/DL (7-18); CALCIUM LEVEL 8.5 MG/DL (8.8-10.2); CARBON DIOXIDE LEVEL 23 MEQ/L (21-32); CHLORIDE LEVEL 109 MEQ/L (98-107); CREATININE FOR GFR 0.84 MG/DL (0.55-1.30); FREE T4 0.99 NG/DL (0.76-1.46); GLOMERULAR FILTRATION RATE > 60.0 (>39); GLUCOSE, FASTING 70 MG/DL (70-100); POTASSIUM SERUM 3.9 MEQ/L (3.5-5.1); SODIUM LEVEL 140 MEQ/L (136-145)
== END ==
PROVIDERS: ATTEND Family Medicine
DX: G35 Multiple sclerosis (principal); E03.9 Hypothyroidism, unspecified

== ENCOUNTER → 2020-04-11 | Outpatient (REF) ==
[2020-04-11 19:05] LABS: HEMATOCRIT 40.1 % (36.0-47.0); MEAN CORPUSCULAR HEMOGLOBIN 32.7 pg (27.0-33.0); MEAN CORPUSCULAR HGB CONC 32.4 g/dl (32.0-36.5); PLATELET COUNT, AUTOMATED 243 10^3/uL (150-450); RED BLOOD COUNT 3.97 10^6/uL (4.00-5.40); WHITE BLOOD COUNT 9.5 10^3/uL (4.0-10.0)
[2020-04-11 19:39] LABS: CALCIUM LEVEL 8.9 MG/DL (8.8-10.2); CREATININE FOR GFR 0.98 MG/DL (0.55-1.30); GLOMERULAR FILTRATION RATE 59.4 (>39); POTASSIUM SERUM 5.2 MEQ/L (3.5-5.1)
--- NOTE | 2020-05-08 14:01 | REPPI ---
CHEST X-RAY CLINICAL: Edema. COMPARISON: 12/13/2019. FINDINGS: Mediastinum and cardiac silhouette are normal. Lung conway are clear. No consolidation, effusion, or pneumothorax. No significant evidence for CHF or pulmonary vasculature congestion. Skeletal structures are intact. IMPRESSION: Normal portable chest x-ray. No acute cardiopulmonary process appreciated.. MTDD
== END ==
PROVIDERS: ATTEND Physician Assistant
DX: R60.9 Edema, unspecified (principal)

== ENCOUNTER → 2020-04-18 | Outpatient (REF) ==
[2020-04-18 10:52] LABS: HEMATOCRIT 40.8 % (36.0-47.0); HEMOGLOBIN 13.3 g/dl (12.0-15.5); MEAN CORPUSCULAR HEMOGLOBIN 32.6 pg (27.0-33.0); MEAN CORPUSCULAR HGB CONC 32.6 g/dl (32.0-36.5); PLATELET COUNT, AUTOMATED 249 10^3/uL (150-450); RED BLOOD COUNT 4.08 10^6/uL (4.00-5.40); WHITE BLOOD COUNT 7.4 10^3/uL (4.0-10.0)
[2020-04-18 11:18] LABS: BLOOD UREA NITROGEN 36 MG/DL (7-18); CALCIUM LEVEL 9.4 MG/DL (8.8-10.2); CARBON DIOXIDE LEVEL 25 MEQ/L (21-32); CHLORIDE LEVEL 108 MEQ/L (98-107); CREATININE FOR GFR 0.77 MG/DL (0.55-1.30); GLOMERULAR FILTRATION RATE > 60.0 (>39); GLUCOSE, FASTING 97 MG/DL (70-100); NT-PRO BNP 159 PG/ML (<125); POTASSIUM SERUM 3.3 MEQ/L (3.5-5.1); SODIUM LEVEL 141 MEQ/L (136-145)
== END ==
PROVIDERS: ATTEND Physician Assistant
DX: R60.9 Edema, unspecified (principal)

== ENCOUNTER → 2020-04-20 | Outpatient (REF) | PROVIDERS: ATTEND Physician Assistant | DX: E87.6 Hypokalemia (principal) ==

== ENCOUNTER → 2020-06-21 | Outpatient (REF) | PROVIDERS: ATTEND Internal Medicine | DX: Z20.828 Contact with and (suspected) exposure to other viral communicable diseases (principal) ==

== ENCOUNTER → 2020-06-28 | Outpatient (REF) | payer MEDICARE, OTHER | LOC: EDSTATUS 08-07 16:17 | PROVIDERS: ATTEND Internal Medicine | DX: Z20.828 Contact with and (suspected) exposure to other viral communicable diseases (principal) ==

== ENCOUNTER → 2020-07-04 | Outpatient (REF) | payer MEDICARE, OTHER | PROVIDERS: ATTEND Internal Medicine | DX: Z20.828 Contact with and (suspected) exposure to other viral communicable diseases (principal) ==

== ENCOUNTER → 2020-07-10 | Outpatient (REF) | PROVIDERS: ATTEND Internal Medicine | DX: E03.9 Hypothyroidism, unspecified (principal) ==

== ENCOUNTER → 2020-07-18 | Outpatient (REF) | payer MEDICARE, OTHER ==
[2020-07-18 13:57] LABS: BLOOD UREA NITROGEN 37 MG/DL (7-18); CALCIUM LEVEL 9.1 MG/DL (8.8-10.2); CARBON DIOXIDE LEVEL 26 MEQ/L (21-32); CHLORIDE LEVEL 110 MEQ/L (98-107); CREATININE FOR GFR 0.85 MG/DL (0.55-1.30); GLOMERULAR FILTRATION RATE > 60.0 (>39); GLUCOSE, FASTING 86 MG/DL (70-100); POTASSIUM SERUM 4.3 MEQ/L (3.5-5.1); SODIUM LEVEL 143 MEQ/L (136-145)
== END ==
PROVIDERS: ATTEND Internal Medicine
DX: R60.9 Edema, unspecified (principal)

== ENCOUNTER → 2020-07-22 | Outpatient (REF) | payer MEDICARE, OTHER | PROVIDERS: ATTEND Internal Medicine | DX: Z20.828 Contact with and (suspected) exposure to other viral communicable diseases (principal) ==

== ENCOUNTER → 2020-07-26 | Outpatient (REF) | payer MEDICARE, OTHER | PROVIDERS: ATTEND Internal Medicine | DX: Z20.828 Contact with and (suspected) exposure to other viral communicable diseases (principal) ==

== ENCOUNTER → 2020-07-30 | Outpatient (REF) | payer MEDICARE, OTHER ==
[2020-07-30 12:01] LABS: RSV AMPLIFICATION NEGATIVE (NEGATIVE)
== END ==
PROVIDERS: ATTEND Internal Medicine
DX: Z20.828 Contact with and (suspected) exposure to other viral communicable diseases (principal)

== ENCOUNTER → 2020-08-01 | Outpatient (REF) | payer MEDICARE, OTHER | PROVIDERS: ATTEND Internal Medicine | DX: Z20.828 Contact with and (suspected) exposure to other viral communicable diseases (principal) ==

== ENCOUNTER → 2020-08-02 | Outpatient (REF) | payer MEDICARE, OTHER | PROVIDERS: ATTEND Internal Medicine | DX: Z20.828 Contact with and (suspected) exposure to other viral communicable diseases (principal) ==

== ENCOUNTER → 2020-08-07 | Outpatient (REF) | payer MEDICARE, OTHER | PROVIDERS: ATTEND Internal Medicine | DX: Z20.828 Contact with and (suspected) exposure to other viral communicable diseases (principal) ==

== ENCOUNTER → 2020-08-13 | Outpatient (REF) | payer MEDICARE, OTHER | PROVIDERS: ATTEND Internal Medicine | DX: Z20.822 Contact with and (suspected) exposure to COVID-19 (principal) ==

== ENCOUNTER → 2020-08-15 | Outpatient (REF) | payer MEDICARE, OTHER ==
[2020-08-15 17:52] LABS: RSV AMPLIFICATION NEGATIVE (NEGATIVE)
== END ==
PROVIDERS: ATTEND Internal Medicine
DX: R19.7 Diarrhea, unspecified (principal)

== ENCOUNTER → 2020-08-17 | Outpatient (REF) | payer MEDICARE, OTHER | PROVIDERS: ATTEND Internal Medicine | DX: Z20.822 Contact with and (suspected) exposure to COVID-19 (principal) ==

== ENCOUNTER → 2020-08-22 | Outpatient (REF) | payer MEDICARE, OTHER | PROVIDERS: ATTEND Internal Medicine | DX: Z20.822 Contact with and (suspected) exposure to COVID-19 (principal) ==

== ENCOUNTER → 2020-08-29 | Outpatient (REF) | payer MEDICARE, OTHER | PROVIDERS: ATTEND Internal Medicine | DX: Z20.822 Contact with and (suspected) exposure to COVID-19 (principal) ==

== ENCOUNTER → 2020-09-04 | Outpatient (REF) | payer MEDICARE, OTHER ==
--- NOTE | 2020-09-04 16:11 | REPPI ---
INDICATION: R/O CHF [id number]. COMPARISON: 04/11/2020 the latest prior TECHNIQUE: Portable. The technique utilized in obtaining the radiograph has magnified the cardiac silhouette and attenuated the interstitial markings. FINDINGS: The superior mediastinal structures are midline. The heart is not enlarged. The diaphragmatic surfaces of the lungs are regular and the costophrenic angles are clear. The pulmonary conway are clear. The visualized osseous structures are intact. IMPRESSION: There is no acute cardiopulmonary disease. <Electronically signed by Tim Stover > 09/04/20 [id number]
== END ==
PROVIDERS: ATTEND Physician Assistant
DX: R09.89 Other specified symptoms and signs involving the circulatory and respiratory systems (principal)

== ENCOUNTER → 2020-09-05 | Outpatient (REF) | payer MEDICARE, OTHER ==
[2020-09-05 12:41] LABS: ALBUMIN 3.1 GM/DL (3.2-5.2); ALT/SGPT 20 U/L (12-78); BILIRUBIN,DIRECT 0.2 MG/DL (0.0-0.2); BILIRUBIN,TOTAL 0.6 MG/DL (0.2-1.0); BLOOD UREA NITROGEN 13 MG/DL (7-18); CALCIUM LEVEL 9.3 MG/DL (8.8-10.2); CARBON DIOXIDE LEVEL 29 MEQ/L (21-32); CHLORIDE LEVEL 101 MEQ/L (98-107); CREATININE FOR GFR 0.86 MG/DL (0.55-1.30); GLOMERULAR FILTRATION RATE > 60.0 (>39); GLUCOSE, FASTING 80 MG/DL (70-100); NT-PRO BNP 110 PG/ML (<125); POTASSIUM SERUM 3.7 MEQ/L (3.5-5.1); SODIUM LEVEL 139 MEQ/L (136-145); TOTAL PROTEIN 6.3 GM/DL (6.4-8.2)
== END ==
PROVIDERS: ATTEND Internal Medicine
DX: Z20.822 Contact with and (suspected) exposure to COVID-19 (principal); I50.9 Heart failure, unspecified; Z79.899 Other long term (current) drug therapy
CPT/HCPCS: 36415; 80053; 82248; 83036; 83880; 84443; U0003

== ENCOUNTER → 2020-09-12 | Outpatient (REF) | payer MEDICARE, OTHER ==
[2020-09-12 11:54] LABS: HEMOGLOBIN 12.6 g/dl (12.0-15.5); MEAN CORPUSCULAR HGB CONC 31.5 g/dl (32.0-36.5); MEAN CORPUSCULAR VOLUME 98.3 fl (80.0-96.0); PLATELET COUNT, AUTOMATED 224 10^3/uL (150-450); RED BLOOD COUNT 4.07 10^6/uL (4.00-5.40); WHITE BLOOD COUNT 6.6 10^3/uL (4.0-10.0)
[2020-09-12 12:37] LABS: CALCIUM LEVEL 9.6 MG/DL (8.8-10.2); CREATININE FOR GFR 1.01 MG/DL (0.55-1.30); GLOMERULAR FILTRATION RATE 57.4 (>39); POTASSIUM SERUM 3.8 MEQ/L (3.5-5.1); THYROID STIMULATING HORMONE 5.41 uIU/ML (0.358-3.740)
== END ==
PROVIDERS: ATTEND Internal Medicine
DX: I50.9 Heart failure, unspecified (principal); Z20.822 Contact with and (suspected) exposure to COVID-19
CPT/HCPCS: 36415; 80048; 84443; 85027; U0003

== ENCOUNTER → 2020-09-19 | Outpatient (REF) | payer MEDICARE, OTHER | PROVIDERS: ATTEND Internal Medicine | DX: Z20.822 Contact with and (suspected) exposure to COVID-19 (principal) ==

== ENCOUNTER → 2020-09-26 | Outpatient (REF) | payer MEDICARE, OTHER | PROVIDERS: ATTEND Internal Medicine | DX: Z20.822 Contact with and (suspected) exposure to COVID-19 (principal) ==

== ENCOUNTER → 2020-10-03 | Outpatient (REF) | payer MEDICARE, OTHER | PROVIDERS: ATTEND Internal Medicine | DX: Z20.822 Contact with and (suspected) exposure to COVID-19 (principal) ==

== ENCOUNTER → 2020-10-10 | Outpatient (REF) | payer MEDICARE, OTHER | PROVIDERS: ATTEND Internal Medicine | DX: Z20.822 Contact with and (suspected) exposure to COVID-19 (principal) ==

== ENCOUNTER → 2020-10-17 | Outpatient (REF) | payer MEDICARE, OTHER | PROVIDERS: ATTEND Internal Medicine | DX: Z11.52 Encounter for screening for COVID-19 (principal) ==

== ENCOUNTER → 2020-11-16 | Outpatient (REF) | payer MEDICARE, OTHER ==
[2020-11-16 15:17] LABS: INFLUENZA A AMPLIFICATION NEGATIVE (NEGATIVE); INFLUENZA B AMPLIFICATION NEGATIVE (NEGATIVE)
== END ==
PROVIDERS: ATTEND Internal Medicine
DX: Z11.52 Encounter for screening for COVID-19 (principal)

== ENCOUNTER → 2020-11-20 | Outpatient (REF) | payer MEDICARE, OTHER | PROVIDERS: ATTEND Internal Medicine | DX: Z20.822 Contact with and (suspected) exposure to COVID-19 (principal) ==

== ENCOUNTER → 2020-12-04 | Outpatient (REF) | payer MEDICARE, OTHER | PROVIDERS: ATTEND Internal Medicine | DX: Z20.822 Contact with and (suspected) exposure to COVID-19 (principal) ==

== ENCOUNTER → 2021-01-16 | Outpatient (REF) | payer MEDICARE, OTHER ==
[2021-01-16 10:11] LABS: HEMATOCRIT 38.9 % (36.0-47.0); HEMOGLOBIN 12.8 g/dl (12.0-15.5); MEAN CORPUSCULAR HGB CONC 32.9 g/dl (32.0-36.5); MEAN CORPUSCULAR VOLUME 97.3 fl (80.0-96.0); PLATELET COUNT, AUTOMATED 310 10^3/uL (150-450)
[2021-01-16 11:44] LABS: BLOOD UREA NITROGEN 28 MG/DL (7-18); CARBON DIOXIDE LEVEL 26 MEQ/L (21-32); CHLORIDE LEVEL 107 MEQ/L (98-107); CREATININE FOR GFR 0.77 MG/DL (0.55-1.30); GLOMERULAR FILTRATION RATE > 60.0 (>39); GLUCOSE, FASTING 80 MG/DL (70-100); POTASSIUM SERUM 3.3 MEQ/L (3.5-5.1); SODIUM LEVEL 141 MEQ/L (136-145)
== END ==
PROVIDERS: ATTEND Family Medicine
DX: G35 Multiple sclerosis (principal)

== ENCOUNTER → 2021-01-30 | Outpatient (REF) | payer MEDICARE, OTHER ==
[2021-01-30 11:37] LABS: BLOOD UREA NITROGEN 20 MG/DL (7-18); CALCIUM LEVEL 8.8 MG/DL (8.8-10.2); CARBON DIOXIDE LEVEL 23 MEQ/L (21-32); CHLORIDE LEVEL 109 MEQ/L (98-107); CREATININE FOR GFR 0.69 MG/DL (0.55-1.30); GLOMERULAR FILTRATION RATE > 60.0 (>39); GLUCOSE, FASTING 92 MG/DL (70-100); POTASSIUM SERUM 3.1 MEQ/L (3.5-5.1); SODIUM LEVEL 141 MEQ/L (136-145)
== END ==
PROVIDERS: ATTEND Physician Assistant
DX: E87.6 Hypokalemia (principal)

== ENCOUNTER → 2021-02-06 | Outpatient (REF) | payer MEDICARE, OTHER ==
[2021-02-06 11:20] LABS: BLOOD UREA NITROGEN 27 MG/DL (7-18); CARBON DIOXIDE LEVEL 23 MEQ/L (21-32); CHLORIDE LEVEL 108 MEQ/L (98-107); CREATININE FOR GFR 0.73 MG/DL (0.55-1.30); GLOMERULAR FILTRATION RATE > 60.0 (>39); GLUCOSE, FASTING 101 MG/DL (70-100); POTASSIUM SERUM 3.6 MEQ/L (3.5-5.1); SODIUM LEVEL 141 MEQ/L (136-145)
== END ==
PROVIDERS: ATTEND Physician Assistant
DX: E87.6 Hypokalemia (principal)

== ENCOUNTER → 2021-04-04 | Outpatient (REF) | payer MEDICARE, OTHER ==
[2021-04-04 15:36] LABS: BASO % 0.3 % (0.0-1.0); EOS % 0.3 % (0.0-3.0); HEMATOCRIT 37.8 % (36.0-47.0); HEMOGLOBIN 12.1 g/dl (12.0-15.5); LYMPH # 1.3 10^3/uL (1.5-5.0); LYMPH % 10.5 % (24.0-44.0); MEAN CORPUSCULAR HEMOGLOBIN 31.8 pg (27.0-33.0); MEAN CORPUSCULAR VOLUME 99.5 fl (80.0-96.0); MONO # 0.9 10^3/uL (0.0-0.8); MONO % 7.3 % (2.0-8.0); NEUTROPHILS # 9.6 10^3/uL (1.5-8.5); NEUTROPHILS % 80.6 % (36.0-66.0); PLATELET COUNT, AUTOMATED 281 10^3/uL (150-450); WHITE BLOOD COUNT 11.9 10^3/uL (4.0-10.0)
[2021-04-04 15:51] LABS: ALBUMIN 2.8 GM/DL (3.2-5.2); ALT/SGPT 25 U/L (12-78); BILIRUBIN,TOTAL 0.3 MG/DL (0.2-1.0); BLOOD UREA NITROGEN 20 MG/DL (7-18); CALCIUM LEVEL 8.8 MG/DL (8.8-10.2); CARBON DIOXIDE LEVEL 24 MEQ/L (21-32); CHLORIDE LEVEL 107 MEQ/L (98-107); CREATININE FOR GFR 0.67 MG/DL (0.55-1.30); GLOMERULAR FILTRATION RATE > 60.0 (>39); GLUCOSE, FASTING 67 MG/DL (70-100); POTASSIUM SERUM 4.2 MEQ/L (3.5-5.1); SODIUM LEVEL 140 MEQ/L (136-145); TOTAL PROTEIN 6.6 GM/DL (6.4-8.2)
== END ==
PROVIDERS: ATTEND Internal Medicine
DX: R11.2 Nausea with vomiting, unspecified (principal)

== ENCOUNTER → 2021-04-04 | Outpatient (CLI) | payer MEDICARE, OTHER ==
--- NOTE | 2021-04-04 15:35 | REP ---
INDICATION: NAUSEA. COMPARISON: None. FINDINGS: KUB shows the intestinal gas pattern to be nonspecific. The organ silhouettes insofar as delineated are unremarkable. There is no evidence of free intraperitoneal air. Calcifications are seen in the upper abdomen bilaterally. The etiology of these calcifications cannot be determined by this exam. IMPRESSION: Nonspecific. Calcifications as described above. Consider CT <Electronically signed by Tim Stover > 04/04/21 [id number]
== END ==
PROVIDERS: ATTEND Internal Medicine
DX: R11.2 Nausea with vomiting, unspecified (principal); R93.5 Abnormal findings on diagnostic imaging of other abdominal regions, including retroperitoneum

== ENCOUNTER → 2021-04-10 | Outpatient (REF) | payer MEDICARE, OTHER ==
[2021-04-10 11:05] LABS: HEMOGLOBIN 12.7 g/dl (12.0-15.5); MEAN CORPUSCULAR HEMOGLOBIN 31.5 pg (27.0-33.0); MEAN CORPUSCULAR HGB CONC 32.6 g/dl (32.0-36.5); MEAN CORPUSCULAR VOLUME 96.8 fl (80.0-96.0); PLATELET COUNT, AUTOMATED 247 10^3/uL (150-450); RED BLOOD COUNT 4.03 10^6/uL (4.00-5.40)
[2021-04-10 11:33] LABS: BLOOD UREA NITROGEN 26 MG/DL (7-18); CALCIUM LEVEL 8.8 MG/DL (8.8-10.2); CARBON DIOXIDE LEVEL 26 MEQ/L (21-32); CHLORIDE LEVEL 108 MEQ/L (98-107); CREATININE FOR GFR 0.72 MG/DL (0.55-1.30); GLOMERULAR FILTRATION RATE > 60.0 (>39); GLUCOSE, FASTING 88 MG/DL (70-100); POTASSIUM SERUM 3.8 MEQ/L (3.5-5.1); SODIUM LEVEL 141 MEQ/L (136-145)
== END ==
PROVIDERS: ATTEND Physician Assistant
DX: G35 Multiple sclerosis (principal)

== ENCOUNTER → 2021-07-17 | Outpatient (REF) | payer MEDICARE, OTHER | PROVIDERS: ATTEND Internal Medicine | DX: E03.9 Hypothyroidism, unspecified (principal) ==

== ENCOUNTER → 2021-08-14 | Outpatient (REF) | payer MEDICARE, OTHER ==
[2021-08-14 11:40] LABS: HEMATOCRIT 42.2 % (36.0-47.0); HEMOGLOBIN 13.5 g/dl (12.0-15.5); MEAN CORPUSCULAR HEMOGLOBIN 31.3 pg (27.0-33.0); MEAN CORPUSCULAR VOLUME 97.9 fl (80.0-96.0); PLATELET COUNT, AUTOMATED 255 10^3/uL (150-450); RED BLOOD COUNT 4.31 10^6/uL (4.00-5.40); WHITE BLOOD COUNT 7.9 10^3/uL (4.0-10.0)
[2021-08-14 12:28] LABS: BLOOD UREA NITROGEN 22 MG/DL (7-18); CALCIUM LEVEL 9.1 MG/DL (8.8-10.2); CARBON DIOXIDE LEVEL 26 MEQ/L (21-32); CHLORIDE LEVEL 108 MEQ/L (98-107); CREATININE FOR GFR 0.93 MG/DL (0.55-1.30); GLOMERULAR FILTRATION RATE > 60.0 (>39); GLUCOSE, FASTING 72 MG/DL (70-100); POTASSIUM SERUM 3.8 MEQ/L (3.5-5.1); SODIUM LEVEL 142 MEQ/L (136-145)
== END ==
PROVIDERS: ATTEND Internal Medicine
DX: G35 Multiple sclerosis (principal); Z79.899 Other long term (current) drug therapy

== ENCOUNTER → 2021-09-11 | Outpatient (REF) | payer MEDICARE, OTHER | PROVIDERS: ATTEND Internal Medicine | DX: E03.9 Hypothyroidism, unspecified (principal) ==

== ENCOUNTER → 2021-12-11 | Outpatient (REF) | payer MEDICARE, OTHER ==
[2021-12-11 13:04] LABS: HEMATOCRIT 39.7 % (36.0-47.0); HEMOGLOBIN 13.1 g/dl (12.0-15.5); MEAN CORPUSCULAR HEMOGLOBIN 31.5 pg (27.0-33.0); MEAN CORPUSCULAR VOLUME 95.4 fl (80.0-96.0); PLATELET COUNT, AUTOMATED 321 10^3/uL (150-450); RED BLOOD COUNT 4.16 10^6/uL (4.00-5.40); WHITE BLOOD COUNT 11.5 10^3/uL (4.0-10.0)
[2021-12-11 13:28] LABS: BLOOD UREA NITROGEN 23 MG/DL (7-18); CALCIUM LEVEL 9.3 MG/DL (8.8-10.2); CARBON DIOXIDE LEVEL 20 MEQ/L (21-32); CHLORIDE LEVEL 114 MEQ/L (98-107); CREATININE FOR GFR 0.59 MG/DL (0.55-1.30); GLOMERULAR FILTRATION RATE > 60.0 (>39); GLUCOSE, FASTING 104 MG/DL (70-100); POTASSIUM SERUM 3.7 MEQ/L (3.5-5.1); SODIUM LEVEL 142 MEQ/L (136-145)
== END ==
PROVIDERS: ATTEND Internal Medicine
DX: G35 Multiple sclerosis (principal)

== ENCOUNTER → 2022-01-08 | Outpatient (REF) | payer MEDICARE, OTHER | PROVIDERS: ATTEND Internal Medicine | DX: E03.9 Hypothyroidism, unspecified (principal) ==

== ENCOUNTER → 2022-04-16 | Outpatient (REF) | payer MEDICARE, OTHER ==
[2022-04-16 11:56] LABS: HEMATOCRIT 38.7 % (36.0-47.0); HEMOGLOBIN 12.3 g/dl (12.0-15.5); MEAN CORPUSCULAR HEMOGLOBIN 32.4 pg (27.0-33.0); MEAN CORPUSCULAR HGB CONC 31.8 g/dl (32.0-36.5); MEAN CORPUSCULAR VOLUME 101.8 fl (80.0-96.0); PLATELET COUNT, AUTOMATED 240 10^3/uL (150-450); WHITE BLOOD COUNT 7.4 10^3/uL (4.0-10.0)
[2022-04-16 12:47] LABS: BLOOD UREA NITROGEN 27 MG/DL (7-18); CALCIUM LEVEL 8.6 MG/DL (8.8-10.2); CARBON DIOXIDE LEVEL 22 MEQ/L (21-32); CHLORIDE LEVEL 113 MEQ/L (98-107); CREATININE FOR GFR 0.72 MG/DL (0.55-1.30); GLOMERULAR FILTRATION RATE > 60.0 (>39); GLUCOSE, FASTING 93 MG/DL (70-100); POTASSIUM SERUM 3.2 MEQ/L (3.5-5.1); SODIUM LEVEL 141 MEQ/L (136-145)
== END ==
PROVIDERS: ATTEND Internal Medicine
DX: G35 Multiple sclerosis (principal)

== ENCOUNTER → 2022-04-30 | Outpatient (REF) | payer MEDICARE, OTHER ==
[2022-04-30 13:10] LABS: BLOOD UREA NITROGEN 21 MG/DL (7-18); CALCIUM LEVEL 8.8 MG/DL (8.8-10.2); CARBON DIOXIDE LEVEL 20 MEQ/L (21-32); CHLORIDE LEVEL 113 MEQ/L (98-107); CREATININE FOR GFR 0.73 MG/DL (0.55-1.30); GLOMERULAR FILTRATION RATE > 60.0 (>39); GLUCOSE, FASTING 97 MG/DL (70-100); POTASSIUM SERUM 3.3 MEQ/L (3.5-5.1); SODIUM LEVEL 142 MEQ/L (136-145)
== END ==
PROVIDERS: ATTEND Physician Assistant
DX: E87.6 Hypokalemia (principal)

== ENCOUNTER → 2022-05-25 | Outpatient (REF) ==
[2022-05-25 19:20] LABS: APPEARANCE, URINE MANUAL HAZY (CLEAR); BILIRUBIN, URINE MANUAL NEGATIVE (NEGATIVE); BLOOD URINE MANUAL POSITIVE (NEGATIVE); COLOR, URINE MANUAL YELLOW (YELLOW); GLUCOSE, URINE (UA) MANUAL NEGATIVE (NEGATIVE); KETONE, URINE MANUAL NEGATIVE (NEGATIVE); LEUKOCYTE ESTERASE, URINE MAN POSITIVE (NEGATIVE); NITRITE, URINE MANUAL NEGATIVE (NEGATIVE); PROTEIN, URINE MANUAL 1+ mg/dL (NEGATIVE); SPECIFIC GRAVITY,URINE MANUAL 1.015 (1.002-1.035); UROBILINOGEN, URINE MANUAL NORMAL (NORMAL)
[2022-05-25 19:24] LABS: BASO # 0.1 10^3/uL (0.0-0.2); EOS # 0.2 10^3/uL (0.0-0.5); EOS % 2.4 % (0.0-3.0); HEMATOCRIT 44.1 % (36.0-47.0); LYMPH # 1.8 10^3/uL (1.5-5.0); LYMPH % 24.5 % (24.0-44.0); MEAN CORPUSCULAR HEMOGLOBIN 31.7 pg (27.0-33.0); MEAN CORPUSCULAR HGB CONC 31.7 g/dl (32.0-36.5); MONO # 0.8 10^3/uL (0.0-0.8); MONO % 11.1 % (2.0-8.0); NEUTROPHILS # 4.3 10^3/uL (1.5-8.5); NEUTROPHILS % 60.4 % (36.0-66.0); PLATELET COUNT, AUTOMATED 277 10^3/uL (150-450); RED BLOOD COUNT 4.41 10^6/uL (4.00-5.40); WHITE BLOOD COUNT 7.2 10^3/uL (4.0-10.0)
[2022-05-25 19:34] LABS: BACTERIA, URINE LARGE AMOUNT; RBC, URINE 0-1 /hpf (0-3); SQUAMOUS EPITHELIAL CELL URINE LARGE AMOUNT /hpf (SMALL AMT); WBC, URINE TNTC /hpf (0-3)
[2022-05-25 19:44] LABS: ALBUMIN 3.6 GM/DL (3.2-5.2); ALT/SGPT 41 U/L (12-78); BILIRUBIN,TOTAL 0.8 MG/DL (0.2-1.0); BLOOD UREA NITROGEN 13 MG/DL (7-18); CALCIUM LEVEL 9.4 MG/DL (8.8-10.2); CARBON DIOXIDE LEVEL 22 MEQ/L (21-32); CHLORIDE LEVEL 107 MEQ/L (98-107); CREATININE FOR GFR 0.82 MG/DL (0.55-1.30); GLOMERULAR FILTRATION RATE > 60.0 (>39); GLUCOSE, FASTING 80 MG/DL (70-100); POTASSIUM SERUM 4.6 MEQ/L (3.5-5.1); SODIUM LEVEL 139 MEQ/L (136-145)
== END ==
LOC: SKLAB2 13:35
PROVIDERS: ATTEND Internal Medicine
DX: R41.0 Disorientation, unspecified (principal); R44.3 Hallucinations, unspecified

== ENCOUNTER → 2022-06-16 | Outpatient (REF) | payer MEDICARE, OTHER ==
[2022-06-16 10:02] LABS: HEMATOCRIT 43.9 % (36.0-47.0); HEMOGLOBIN 14.6 g/dl (12.0-15.5); MEAN CORPUSCULAR HEMOGLOBIN 31.1 pg (27.0-33.0); MEAN CORPUSCULAR HGB CONC 33.3 g/dl (32.0-36.5); MEAN CORPUSCULAR VOLUME 93.6 fl (80.0-96.0); PLATELET COUNT, AUTOMATED 290 10^3/uL (150-450); RED BLOOD COUNT 4.69 10^6/uL (4.00-5.40); WHITE BLOOD COUNT 6.5 10^3/uL (4.0-10.0)
[2022-06-16 10:44] LABS: ALBUMIN 3.1 GM/DL (3.2-5.2); ALT/SGPT 32 U/L (12-78); BILIRUBIN,DIRECT 0.4 MG/DL (0.0-0.2); BILIRUBIN,TOTAL 0.7 MG/DL (0.2-1.0); BLOOD UREA NITROGEN 15 MG/DL (7-18); CALCIUM LEVEL 9.1 MG/DL (8.8-10.2); CARBON DIOXIDE LEVEL 21 MEQ/L (21-32); CHLORIDE LEVEL 103 MEQ/L (98-107); CREATININE FOR GFR 0.89 MG/DL (0.55-1.30); GLOMERULAR FILTRATION RATE > 60.0 (>39); GLUCOSE, FASTING 110 MG/DL (70-100); POTASSIUM SERUM 3.2 MEQ/L (3.5-5.1); SODIUM LEVEL 134 MEQ/L (136-145); THYROID STIMULATING HORMONE 0.543 uIU/ML (0.358-3.740); TOTAL PROTEIN 6.8 GM/DL (6.4-8.2)
[2022-06-16 18:26] LABS: HEMOGLOBIN A1c 5.3 %
== END ==
PROVIDERS: ATTEND Physician Assistant
DX: R60.9 Edema, unspecified (principal); Z79.899 Other long term (current) drug therapy

== ENCOUNTER → 2022-07-16 | Outpatient (REF) | payer MEDICARE, OTHER | PROVIDERS: ATTEND Internal Medicine | DX: E03.9 Hypothyroidism, unspecified (principal) ==

== ENCOUNTER → 2022-08-13 | Outpatient (REF) | payer MEDICARE, OTHER ==
[2022-08-13 11:21] LABS: HEMATOCRIT 42.1 % (36.0-47.0); HEMOGLOBIN 13.8 g/dl (12.0-15.5); MEAN CORPUSCULAR HGB CONC 32.8 g/dl (32.0-36.5); MEAN CORPUSCULAR VOLUME 94.6 fl (80.0-96.0); PLATELET COUNT, AUTOMATED 227 10^3/uL (150-450); RED BLOOD COUNT 4.45 10^6/uL (4.00-5.40); WHITE BLOOD COUNT 5.3 10^3/uL (4.0-10.0)
[2022-08-13 11:56] LABS: CALCIUM LEVEL 8.9 MG/DL (8.3-10.6); CREATININE FOR GFR 0.98 MG/DL (0.55-1.30); GLOMERULAR FILTRATION RATE 59.1 (>39); POTASSIUM SERUM 3.6 MMOL/L (3.5-5.1)
== END ==
PROVIDERS: ATTEND Internal Medicine
DX: G35 Multiple sclerosis (principal)

== ENCOUNTER → 2022-09-08 | Outpatient (REF) | payer MEDICARE, OTHER | PROVIDERS: ATTEND Internal Medicine | DX: N39.0 Urinary tract infection, site not specified (principal); Z53.8 Procedure and treatment not carried out for other reasons ==

== ENCOUNTER → 2022-10-08 | Outpatient (REF) | payer MEDICARE, OTHER ==
[2022-10-08 16:15] LABS: HEMATOCRIT 43.6 % (36.0-47.0); HEMOGLOBIN 14.4 g/dl (12.0-15.5); MEAN CORPUSCULAR HEMOGLOBIN 31.9 pg (27.0-33.0); MEAN CORPUSCULAR VOLUME 96.5 fl (80.0-96.0); PLATELET COUNT, AUTOMATED 200 10^3/uL (150-450); RED BLOOD COUNT 4.52 10^6/uL (4.00-5.40); WHITE BLOOD COUNT 7.5 10^3/uL (4.0-10.0)
[2022-10-08 16:45] LABS: BLOOD UREA NITROGEN 18 MG/DL (9-23); CALCIUM LEVEL 8.7 MG/DL (8.3-10.6); CARBON DIOXIDE LEVEL 22 MMOL/L (20-31); CHLORIDE LEVEL 103 MMOL/L (98-107); CREATININE FOR GFR 0.85 MG/DL (0.55-1.30); GLOMERULAR FILTRATION RATE > 60.0 (>39); GLUCOSE, FASTING 98 MG/DL (74-106); POTASSIUM SERUM 4.9 MMOL/L (3.5-5.1); SODIUM LEVEL 138 MMOL/L (136-145)
== END ==
PROVIDERS: ATTEND Physician Assistant
DX: U07.1 COVID-19 (principal); Z79.899 Other long term (current) drug therapy

== ENCOUNTER → 2022-12-10 | Outpatient (REF) | payer MEDICARE, OTHER ==
[2022-12-10 11:24] LABS: HEMATOCRIT 40.9 % (36.0-47.0); HEMOGLOBIN 13.5 g/dl (12.0-15.5); MEAN CORPUSCULAR HEMOGLOBIN 31.1 pg (27.0-33.0); MEAN CORPUSCULAR VOLUME 94.2 fl (80.0-96.0); PLATELET COUNT, AUTOMATED 303 10^3/uL (150-450); RED BLOOD COUNT 4.34 10^6/uL (4.00-5.40); WHITE BLOOD COUNT 7.2 10^3/uL (4.0-10.0)
[2022-12-10 12:02] LABS: BLOOD UREA NITROGEN 17 MG/DL (9-23); CALCIUM LEVEL 9.1 MG/DL (8.3-10.6); CARBON DIOXIDE LEVEL 26 MMOL/L (20-31); CHLORIDE LEVEL 104 MMOL/L (98-107); CREATININE FOR GFR 0.93 MG/DL (0.55-1.30); GLOMERULAR FILTRATION RATE > 60.0 (>39); GLUCOSE, FASTING 94 MG/DL (74-106); POTASSIUM SERUM 3.2 MMOL/L (3.5-5.1); SODIUM LEVEL 140 MMOL/L (136-145)
== END ==
PROVIDERS: ATTEND Internal Medicine
DX: G35 Multiple sclerosis (principal)

== ENCOUNTER → 2023-01-12 | Outpatient (REF) | payer MEDICARE, OTHER | PROVIDERS: ATTEND Internal Medicine | DX: E03.9 Hypothyroidism, unspecified (principal) ==

== ENCOUNTER → 2023-04-15 | Outpatient (REF) | payer MEDICARE, OTHER ==
[2023-04-15 09:20] LABS: HEMATOCRIT 45.5 % (36.0-47.0); MEAN CORPUSCULAR HEMOGLOBIN 31.7 pg (27.0-33.0); MEAN CORPUSCULAR VOLUME 96.2 fl (80.0-96.0); PLATELET COUNT, AUTOMATED 220 10^3/uL (150-450); RED BLOOD COUNT 4.73 10^6/uL (4.00-5.40); WHITE BLOOD COUNT 7.2 10^3/uL (4.0-10.0)
[2023-04-15 09:41] LABS: BLOOD UREA NITROGEN 21 MG/DL (9-23); CALCIUM LEVEL 8.8 MG/DL (8.3-10.6); CARBON DIOXIDE LEVEL 26 MMOL/L (20-31); CHLORIDE LEVEL 107 MMOL/L (98-107); CREATININE FOR GFR 0.93 MG/DL (0.55-1.30); GLOMERULAR FILTRATION RATE > 60.0 (>39); GLUCOSE, FASTING 79 MG/DL (74-106); POTASSIUM SERUM 3.5 MMOL/L (3.5-5.1); SODIUM LEVEL 141 MMOL/L (136-145)
== END ==
PROVIDERS: ATTEND Internal Medicine
DX: G35 Multiple sclerosis (principal)

== ENCOUNTER → 2023-07-13 | Outpatient (REF) | payer MEDICARE, OTHER | PROVIDERS: ATTEND Internal Medicine | DX: E03.9 Hypothyroidism, unspecified (principal) ==